=== PATIENT | male | born 1940 | race Caucasian/White ===

== ENCOUNTER → 2024-02-10 | Outpatient (CLI) | payer MEDICARE, BC, SELFPAY ==
[2024-02-10 11:10] LABS: Albumin, Serum 4.1 gm/dL (3.4-4.8); Anion Gap 7 (7-16); BUN/Creatinine Ratio 19 Ratio (12-20); Blood Urea Nitrogen 48 mg/dL (9-23); Calcium 9.9 mg/dL (8.3-10.6); Calcium (Corrected) 9.9 mg/dL (8.5-10.1); Carbon Dioxide 25.6 mMol/L (20.0-31.0); Chloride 107 mMol/L (98-107); Creatinine (Component) 2.5 mg/dL (0.6-1.3); Glucose 113 mg/dL (74-106); Osmolality,Calculated 293 (275-295); Phosphorous 3.5 mg/dL (2.4-5.1); Potassium 4.5 mMol/L (3.4-5.1); Sodium 140 mMol/L (136-145); eGFR 25 See Note
== END | disposition home or self-care (01) ==
LOC: COPL 10:01
PROVIDERS: PCP Internal Medicine; Referring Provider Otolaryngology Otolaryngology/Facial Plastic Surgery; Visit Provider Internal Medicine
DX: Z00.00 Encounter for general adult medical examination without abnormal findings (principal); I12.9 Hypertensive chronic kidney disease with stage 1 through stage 4 chronic kidney disease, or unspecified chronic kidney disease; N18.4 Chronic kidney disease, stage 4 (severe); H81.10 Benign paroxysmal vertigo, unspecified ear; Q61.9 Cystic kidney disease, unspecified
CPT/HCPCS: 36415; 80069

== ENCOUNTER → 2024-02-19 | Outpatient (CLI) | payer MEDICARE, BC, SELFPAY ==
--- NOTE | 2024-02-19 15:15 | XR_ITS ---
Examination: MRI brain without intravenous contrast. Date and time of exam: February 19, 2024 1359 hours INDICATIONS: Tendinitis, extreme vertigo months, diagnosis chronic serous otitis media left ear Technique: Multiple axial and sagittal images of the brain obtained. Siemens high-resolution 1.5 Haylie short bore scanners utilized. Sagittal sections, T1-weighted, TR 500, TE 14, are performed. Axial sections proton-density and T2-weighted have been obtained. Inversion recovery axial images, TR 9, 260, TE 111, TI 2500. Diffusion weighted images, axial sections, TR 4800, TE 128, B value 1000 Axial sections, ADC map, TR 4800, TE 128 Findings: Enlargement of the sella turcica is not present. The optic chiasm and infundibular are not remarkable. Prepontine and interpeduncular cisterns are not enlarged. There is no localized enlargement of the medulla or concha. Fourth ventricle and cerebellar tonsils appear normal in position. No subacute area of hemorrhage density is seen. Mass in the cerebellopontine angle region is not evident. Globes symmetrical. Orbital musculature including medial lateral rectus muscles do not exhibit abnormality. Diffusion-weighted images demonstrate no focus restricted diffusion. Increased white matter signal prominent Mass effect upon the ventricular system is not identified. Impression: Negative for acute hemorrhage mass effect or midline shift No acute infarct Prominent chronic microvascular white matter change. Mild left mastoiditis Chronic pansinusitis, severe right maxillary antrum
== END | disposition home or self-care (01) ==
LOC: SMRI 14:55
PROVIDERS: PCP Internal Medicine; Referring Provider Otolaryngology Facial Plastic Surgery; Visit Provider Otolaryngology Facial Plastic Surgery
DX: R90.82 White matter disease, unspecified (principal); H70.92 Unspecified mastoiditis, left ear; J32.4 Chronic pansinusitis
CPT/HCPCS: 70551

== ENCOUNTER 2024-04-08 12:38 | Inpatient (IN) | payer MEDICARE, BC, SELFPAY ==
[2024-04-08] VITALS (8 sets, daily range): BP systolic 144–169; BP diastolic 63–99; PULSE 73–84; RESP 16–969; TEMP 36.6–37.3; O2SAT 92–97; BMI 25.7
--- NOTE | 2024-04-08 13:23 | XR_ITS ---
Examination: Duplex scan of the lower extremity, unilateral left Date and time of exam: April 08, 2024 1336 hours INDICATIONS: Left leg swelling and pain 4 days Technique: Duplex scan of the extremity veins using B-mode/grayscale imaging and Doppler spectral analysis and color flow Attention is directed to internal echogenicity, compression and augmentation involving these veins, color flow assessment, spectral analysis Findings: Major deep venous structures in the extremity demonstrate normal course and caliber. There is no evidence of deep vein thrombosis. Normal color flow and spectral analysis Impression: Negative for DVT..
--- NOTE | 2024-04-08 13:23 | XR_ITS ---
Examination: AP 2 views Technique one AP lateral left knee 2 views Exam date and time: April 08, 2024 1439 hours INDICATIONS: Left knee swelling beginning today. FINDINGS: Moderate osteopenia Total left knee arthroplasty. Satisfactory alignment Moderate to large left knee effusion No fracture IMPRESSION: Moderate to large left knee effusion
--- NOTE | 2024-04-08 13:25 | EDNOTE_ITS ---
ED General RME/HPI General Chief complaint: General Adult/Misc Complain Stated complaint: r/o dvt left knee, sent by pcp,pain/swelling Time Seen by Provider: 04/08/24 12:56 Arrival date/time: 04/08/24 12:38 RME / HPI RME / HPI narrative: 83-year-old male patient was sent to us by PCP to rule out DVT to the left lower leg. Patient been having worsening swelling to the left knee, this time associated with pain and warm to touch. Patient denies any redness. Denies any fever denies any trauma. Patient has a history of total knee replacement several years ago. Patient called Dr. Esquivel, orthopedic surgeon, and was advised to go to the emergency room. Related Data Home Medications ?Medication ?Instructions ?Recorded ?Confirmed aspirin 81 mg chewable tablet 81 mg PO ONCE PM 8 08/11/17 metoprolol tartrate 25 mg tablet 25 mg PO BID 08/11/17 08/11/17 tamsulosin 0.4 mg capsule 0.4 mg PO DAILY 08/11/1705/26 Allergies Allergy/AdvReac Type Severity Reaction Status Date / Time No Known Allergies Allergy Verified 04/08/24 12:40 Review of Systems Review of Systems Narrative Review of Systems: Review of system reviewed and within normal limits except mentioned in HPI ED Exam Narrative Physical exam: VITAL SIGNS: Reviewed. GENERAL APPEARANCE: Alert and interactive, follows commands, no acute distress, HEAD AND FACE: Non-traumatic. ENT: PERRL, pink conjunctivitis, eyelid no trauma, Mucous membrane moist. NECK: Supple, nontender, no nuchal rigidity. CHEST: No tenderness, no crepitus, no paradoxical movement, no retractions. LUNGS: Clear, well ventilated, symmetric, no rales, no wheezing, no ronchi, no stridor, good breath sounds bilaterally. HEART: Regular rate, regular rhythm, no murmur, no gallops. ABDOMEN: Soft, positive bowel sounds, nondistended, no guarding, nontender, no rebound, no masses, RECTAL: Deferred. GENITAL: Deferred. NEUROLOGICAL: Gross motor function intact sensory function intact, Appropriate for age. MUSCULOSKELETAL: low back nontender, full range of motion. EXTREMITIES: Left knee tenderness, swelling, with positive fluid wave test, no redness limitation range of motion. SKIN: Color pink, dry, no rash, no lacerations, no abrasions, no contusions. LYMPHATICS: Deferred. Course Quality Measures none Orders Category Date Time Status COVID-19 Screening Questionnaire NOW Care 04/08/24 16:45 Active Decision to Admit X1 Care 04/08/24 16:45 Active Consult to Orthopedic Stat Cons 04/08/24 16:43 Ordered US venous doppler LE LT Stat Exams 04/08/24 13:23 Completed XR knee limited LT 2V Stat Exams 04/08/24 13:23 Completed Blood Culture (Lab) Stat Lab 04/08/24 16:49 Ordered CBC Stat Lab 04/08/24 14:49 Completed CRP [C-Reactive Protein] Stat Lab 04/08/24 14:49 Completed Comprehensive Metabolic Panel Stat Lab 04/08/24 14:49 Completed ESR [Sed Rate (ESR)] Stat Lab 04/08/24 14:49 Completed Lactate (Lactic Acid) Stat Lab 04/08/24 14:49 Completed Procalcitonin Stat Lab 04/08/24 16:49 Ordered Prothrombin Time with INR Stat Lab 04/08/24 14:49 Completed HYDROcodone*/APAP 5/325 [[place] 5/325] Med 04/08/24 13:24 Discontinued 1 tab PO X1 ONE Piper/Tazo 3.375 gm [Zosyn] Med 04/08/24 16:43 Active 3.375 gm in 50 ml IV X1 Vancomycin Inj 1,000 mg Med 04/08/24 16:43 Active Sodium Chloride 0.9% 250 ml [Ns] 250 ml IV X1 Vital Signs Vital signs: Vital Signs Temperature 98.5 F 04/08/24 13:13 Pulse Rate 82 04/08/24 13:13 Respiratory Rate 20 04/08/24 13:13 Blood Pressure 144/87 H 04/08/24 13:13 Pulse Oximetry (%) 95 04/08/24 13:13 Oxygen Delivery Method Room Air 04/08/24 13:13 [facility] Patient data External records reviewed:: None Clinical information provided by:: patient Social determinants that could affect healthcare access:: none Patient has the following chronic illnesses:: Hypertension How is presenting disease/condition affected by chronic disease/condition?: c aused by Evaluation data The following diagnostics were reviewed and interpreted by me:: lab results and radiology exam(s) Lab and/or radiology exams considered but not ordered:: None Interpretation Summary: Laboratory workup significant for leukocytosis, elevated ESR, elevated creatinine, elevated CRP x-ray of the knee showed moderate knee effusion, ultrasound negative for DVT Medications Medications considered but not ordered:: None Medication administrations:: Medication Administration History Vancomycin HCl 1,000 mg/ (Sodium Chloride) 250 mls @ 150 mls/hr IV X1 ONE Stop: 04/08/24 18:22 Piperacillin/Tazobactam/Dextrose (Zosyn) 3.375 gm in 50 mls @ 100 mls/hr IV X1 ONE Stop: 04/08/24 17:12 Discontinued Medications Hydrocodone Bitart/Acetaminophen (Hydrocodone/Apap 5/325 Tablet) 1 tab PO X1 ONE Stop: 04/08/24 13:25 Last Admin: 04/08/24 14:17 Dose: 1 tab Documented By: Vancomycin and IV Zosyn and [place] Consultations Consultation(s) initiated? (list below): Yes Consultation #1 (Physician, Specialty, Details): Spoke with Dr. Hawthorne, orthopedic surgeon on-call, who told me to asked the hospitalist to admit the patient Diagnosis Differential Diagnosis ED Complaint MDM: Knee arthritis, septic knee, knee pain Most likely diagnosis given after review of the tests above:: Septic knee left Admission Indicated Admission indicated?: indicated Explain why admission is indicated or not indicated:: Needs to be admitted for further management Admission Request Was there a request for admission?: Yes Admission Attestation Admission request attestation: Discussed case with [Dr Sloan] from Hospitalist service regarding admission. Discussed patients ED course, exam findings, labs, and radiology results. The Hospitalist [agrees] to accept the patient for admission. Disposition Plan Disposition Plan: Admit Medical Decision Making MDM Narrative MDM Narrative: 83-year-old male patient was sent to us by PCP to rule out DVT to the left lower leg. Patient been having worsening swelling to the left knee, this time associated with pain and warm to touch. Patient denies any redness. Denies any fever denies any trauma. Patient has a history of total knee replacement several years ago. Patient called Dr. Esquivel, orthopedic surgeon, and was advised to go to the emergency room. Laboratory workup significant for leukocytosis, elevated CRP and ESR. X-ray of the knee showed large/moderate knee effusion. Ultrasound negative for DVT. Patient was started on IV vancomycin and IV Zosyn. Spoke with Dr. Hawthorne, orthopedic surgeon on-call, told me to admit the patient under hospitalist and will see the patient Differential Diagnosis Differential Diagnosis: Knee arthritis, septic knee, knee pain Lab Data 04/08/24 14:49 04/08/24 14:49 Labs: Lab Results 04/08/24 Range/Units 14:49 WBC 14.2 H (3.8-10.6) Thou/mm3 RBC 4.11 L (4.50-5.90) Miln/mm3 Hgb 12.1 L (13.5-16.0) g/dL Hct 36.6 L (41.0-53.0) % MCV 89 (80-100) fL MCH 29.4 (25.0-35.0) pg MCHC 33.1 (31.0-37.0) g/dl RDW Std Deviation 41.8 (35.1-43.9) fL Plt Count 287 (140-440) Thou/mm3 Neut % (Auto) 78 (37-80) % Lymph % (Auto) 9 L (10-50) % [place] % (Auto) 12 (0-12) % Eos % (Auto) 1 (0-10) % Baso % (Auto) 0 (0-2.5) % Neut # (Auto) 11.0 H (1.8-7.7) Thou/mm3 Lymph # (Auto) 1.3 (1.0-4.8) Thou/mm3 [place] # (Auto) 1.8 H (0.0-0.8) Thou/mm3 Eos # (Auto) 0.1 (0.0-0.5) Thou/mm3 Baso # (Auto) 0.0 (0.0-0.2) Thou/mm3 Immature Gran # (Auto) 0.05 H (0.00-0.00) Thou/mm3 Absolute Nucleated RBC 0.00 (0.00-0.00) Thou/mm3 Immature Gran % 0 (0-0) % Nucleated RBC % 0 (0) /100 WBC ESR 82 H (0-20) mm/hr PT 11.7 (9.0-12.2) Seconds INR 1.1 (0.9-1.3) Sodium 133 L (136-145) mMol/L Potassium 4.4 (3.4-5.1) mMol/L Chloride 100 (98-107) mMol/L Carbon Dioxide 23.2 (20.0-31.0) mMol/L Anion Gap 10 (7-16) BUN 45 H (9-23) mg/dL Creatinine 2.5 H (0.6-1.3) mg/dL Estim Creat Clear Calc 23.7 L (>60) mL/min eGFR 25 L (60 - ) See Note BUN/Creatinine Ratio 18 (12-20) Ratio Glucose 111 H (74-106) mg/dL Calculated Osmolality 278 (275-295) Lactic Acid 1.5 (0.4-2.0) mMol/L Calcium 9.5 (8.3-10.6) mg/dL Corrected Calcium 9.5 (8.5-10.1) mg/dL Total Bilirubin 0.6 (0.3-1.2) mg/dL AST 12 (0-34) U/L ALT 10 (10-49) U/L Alkaline Phosphatase 80 (46-116) U/L C-Reactive Prot, Quant 23.4 H (0.0-0.9) mg/dL Total Protein 7.1 (5.7-8.2) gm/dL Albumin 4.5 (3.4-4.8) gm/dL Globulin 2.6 (2.3-3.5) gm/dL Albumin/Globulin Ratio 1.7 (1.2-2.2) Discharge Plan Plan Patient Disposition: Admit Acute Care w/in Hospital Disposition Comment: Stable Prescriptions/Referrals Prescriptions/Med Rec: No Action metoprolol tartrate 25 mg Tablet 25 mg PO BID tamsulosin 0.4 mg Capsule,Extended Release 24hr 0.4 mg PO DAILY aspirin 81 mg Tablet,Chewable 81 mg PO ONCE PM Referrals: Chad Esquivel MD [Primary Care Provider] - In 1 week Problem List Clinical Impression: Septic joint of left knee joint Patient/Caregiver Discharge Instructions Print Language: Citizen Of [place] Stand Alone Forms: Nancy Award Info., Patient Portal Info Letter
[2024-04-08] MEDS: HYDROcodone/APAP 5/325 TABLET 1 TAB PO (14:17)
[2024-04-08 15:08] LABS: Lactate (Lactic Acid) 1.5 mMol/L (0.4-2.0)
[2024-04-08 15:10] LABS: Basophils % (Auto) 0 % (0-2.5); Eosinophils # (Auto) 0.1 Thou/mm3 (0.0-0.5); Eosinophils % (Auto) 1 % (0-10); Hematocrit 36.6 % (41.0-53.0); Hemoglobin 12.1 g/dL (13.5-16.0); Immature Granulocytes % (Auto) 0 % (0-0); Immature Granulocytes Auto 0.05 Thou/mm3 (0.00-0.00); Lymphocytes # (Auto) 1.3 Thou/mm3 (1.0-4.8); Lymphocytes % (Auto) 9 % (10-50); Mean Corpuscular HGB Conc 33.1 g/dl (31.0-37.0); Mean Corpuscular Hemoglobin 29.4 pg (25.0-35.0); Mean Corpuscular Volume 89 fL (80-100); Monocytes # (Auto) 1.8 Thou/mm3 (0.0-0.8); Monocytes % (Auto) 12 % (0-12); Neutrophils % (Auto) 78 % (37-80); Nucleated Red Blood Cell % 0 /100 WBC (0); Platelet Count 287 Thou/mm3 (140-440); RDW Standard Deviation 41.8 fL (35.1-43.9); Red Blood Count 4.11 Miln/mm3 (4.50-5.90); White Blood Count 14.2 Thou/mm3 (3.8-10.6)
[2024-04-08 15:30] LABS: Alanine Aminotransferase 10 U/L (10-49); Albumin, Serum 4.5 gm/dL (3.4-4.8); Albumin/Globulin Ratio 1.7 (1.2-2.2); Alkaline Phosphatase 80 U/L (46-116); Anion Gap 10 (7-16); Aspartate Amino Transferase 12 U/L (0-34); BUN/Creatinine Ratio 18 Ratio (12-20); Bilirubin,Total 0.6 mg/dL (0.3-1.2); Blood Urea Nitrogen 45 mg/dL (9-23); C-Reactive Protein 23.4 mg/dL (0.0-0.9); Calcium 9.5 mg/dL (8.3-10.6); Calcium (Corrected) 9.5 mg/dL (8.5-10.1); Carbon Dioxide 23.2 mMol/L (20.0-31.0); Chloride 100 mMol/L (98-107); Creatinine (Component) 2.5 mg/dL (0.6-1.3); Estimated Creatinine Clearance 23.7 mL/min (>60); Globulin 2.6 gm/dL (2.3-3.5); Glucose 111 mg/dL (74-106); INR 1.1 (0.9-1.3); Osmolality,Calculated 278 (275-295); Potassium 4.4 mMol/L (3.4-5.1); Prothrombin Time 11.7 Seconds (9.0-12.2); Sed Rate (ESR) 82 mm/hr (0-20); Sodium 133 mMol/L (136-145); Total Protein 7.1 gm/dL (5.7-8.2); eGFR 25 See Note
--- NOTE | 2024-04-08 17:44 | ESHP_ITS ---
<Statement entered by Dick Patino MD - 04/08/24 18:05> This patient is a 83-year-old male with past medical history of bilateral total knee replacement came with left knee pain swelling and fevers. Patient is admitted for septic arthritis. Patient also has history of A-fib on Eliquis preventive dose. Orthopedics, Dr. Wall was consulted who recommended to do IR guided joint aspiration tomorrow and he will follow-up with fluid analysis. We empirically started with IV Rocephin and doxycycline will wait on culture results. Pain management as needed. Home medications were reconciled. All labs and orders were reviewed. I saw and examined the patient, and I agree with current management stated by Dr Francisco MD,PGY1. Plan of care was discussed with the attending physician and resident physician. Disclaimer: Despite multiple revisions, due to the dictation software being used, the document bellow may not be free of grammatical errors including phonetic/typographic errors. However, this does not deter from our commitment to providing health care in the patient's best interest in mind. Dr. Sukumar MD, PGY 2 Documentation for date of: 04/08/24 HPI History of Present Illness Chief complaint: Left knee swelling x 4 to 5 days History of present illness: Patient is a 83-year-old male presenting with a complaint of left knee swelling for the last 4 to 5 days and associated whole body aches. History of A-fib on Eliquis, hypertension, bilateral knee replacement (left knee 2017, right knee 2019). Denies any recent trauma. Has come in due to new onset left knee swelling with associated tenderness. Denies fevers, chills, nausea, vomiting. He has been having associated whole body shakes last less than 10 seconds since the onset of his left knee swelling. attributes it to anxiety and notes that she is able to calm him by having him take deep breaths when this occurs. He is lucid throughout the entire interval and is able to converse. Patient denies anxiety during these episodes. They are usually resolved with verbal reassurance. In the ED CBC with a leukocytosis of 14, elevated ESR of 82, CRP of 23 and Pro- Oh of 1.15. BUN 45 and creatinine 2.5 which is unchanged from previous. Negative DVT studies. X-ray shows moderate to large left effusion. Given a dose of [place] for History: A-fib, hypertension, bilateral total knee replacement, BPH, left ear deafness with cochlear implant Meds: Eliquis 2.5 twice daily, losartan 50 daily, nitroglycerin 0.4 as needed, tamsulosin 0.4 daily, MiraLAX daily, senna as needed Allergies: None Surgeries: Bilateral knee replacement. Left knee 2017. Right knee 2019., Appendectomy. Social: Denies alcohol or tobacco use CODE STATUS: DNR/DNI Review of Systems Constitutional Constitutional: Reports as per HPI Exam Vital Signs Temp Pulse Resp BP Pulse Ox O2 Del Method 98.6 F 77 18 167/87 H 97 Room Air 04/08/24 16:44 04/08/24 16:44 04/08/24 16:44 04/08/24 16:44 04/08/24 16:44 04/08/24 16:44 Narrative Exam Constitutional: Well nourished and in no acute distress Eyes: no conjunctival injection , symmetrical lids. ENMT: Moist Mucous Membranes CVS: RRR, S1 and S2 present, no murmurs, rubs or gallops . RESP: no increased work of breathing, on room air MSK: Left knee with effusion, warm and tender to palpation, no erythema. Decreased range of motion of left knee secondary to pain. Skin: Warm to touch, Dry. No rashes or lesions. Neuro: A&O x 3, 5/5 strength and sensation throughout Psych: Appropriate mood and affect. Results: Labs 04/09/24 05:05 04/09/24 05:05 Labs: Short CBC 04/08/24 Range/Units 14:49 WBC 14.2 H (3.8-10.6) Thou/mm3 Hgb 12.1 L (13.5-16.0) g/dL Hct 36.6 L (41.0-53.0) % Plt Count 287 (140-440) Thou/mm3 BMP 04/08/24 14:49 Sodium 133 L Potassium 4.4 Chloride 100 Carbon Dioxide 23.2 BUN 45 H Creatinine 2.5 H Glucose 111 H Calcium 9.5 Liver Function 04/08/24 Range/Units 14:49 Total Bilirubin 0.6 (0.3-1.2) mg/dL AST 12 (0-34) U/L ALT 10 (10-49) U/L Alkaline Phosphatase 80 (46-116) U/L Albumin 4.5 (3.4-4.8) gm/dL Quality Measures Quality Measures none Advance care planning discussed with:: other Medications Home Medications and Allergies Home Medications ?Medication ?Instructions ?Recorded ?Confirmed ?Type aspirin 81 mg chewable tablet 81 mg PO ONCE PM 8 08/11/17 History metoprolol tartrate 25 mg tablet 25 mg PO BID 08/11/17 08/11/17 History tamsulosin 0.4 mg capsule 0.4 mg PO DAILY 08/11/1705/26 History Allergies Allergy/AdvReac Type Severity Reaction Status Date / Time No Known Allergies Allergy Verified 04/08/24 12:40 Visit Medications Acetaminophen (Acetaminophen 325 Mg Tablet) 650 mg PO Q6H PRN PRN Reason: PAIN SCALE 1-3 (mild Stop: 05/08/24 17:12 Heparin Sodium (Porcine) (Heparin Sod Inj 5000 Unit/Ml Vial) 5,000 unit SC Q12HR JOSÉ Stop: 04/22/24 20:59 Vancomycin HCl 1,000 mg/ (Sodium Chloride) 250 mls @ 150 mls/hr IV X1 ONE Stop: 04/08/24 18:22 Lactated Ringer's (Lactated Ringers) 1,000 mls @ 75 mls/hr IV .[id number] JOSÉ Stop: 05/08/24 17:14 Doxycycline Hyclate 100 mg/ (Sodium Chloride) 100 mls @ 100 mls/hr IV BID JOSÉ Stop: 04/15/24 20:59 Ceftriaxone Sodium/Dextrose (Rocephin/D5w 2gm) 2 gm in 50 mls @ 100 mls/hr IV QDAY JOSÉ Stop: 04/16/24 08:59 Tramadol HCl (Tramadol Hcl 50 Mg Tablet) 50 mg PO Q6HR PRN PRN Reason: PAIN SCALE 4-6 (Moderate Stop: 04/13/24 17:12 Discontinued Medications Hydrocodone Bitart/Acetaminophen (Hydrocodone/Apap 5/325 Tablet) 1 tab PO X1 ONE Stop: 04/08/24 13:25 Last Admin: 04/08/24 14:17 Dose: 1 tab Piperacillin/Tazobactam/Dextrose (Zosyn) 3.375 gm in 50 mls @ 100 mls/hr IV X1 ONE Stop: 04/08/24 17:12 Assessment & Plan Plan Patient is a 83-year-old male presenting with a complaint of left knee swelling for the last 4 to 5 days and associated whole body aches. History of A-fib on Eliquis, hypertension, bilateral knee replacement (left knee 2016, right knee 2019). Denies any recent trauma. #Left knee effusion DDx: Septic arthritis, gout, joint effusion X-ray of the knee shows mild to moderate effusion CBC with a leukocytosis of 14, elevated ESR of 82, CRP of 23 and Pro-Oh of 1.15. On exam patient has swelling and tenderness to palpation. No erythema, not hot to touch. Plan: ?Doxycycline and ceftriaxone for antimicrobial coverage ?IR arthrocentesis on 04/09 ?Ortho consulted, Dr. Wall. If septic arthritis will plan for surgery on 04/10. ?Tylenol and tramadol as needed for pain #A-fib History of A-fib on Eliquis Plan: ?Resume home Eliquis 2.5 twice daily, will hold for IR arthrocentesis and possible surgery #Hypertension ?Resume home losartan 50 mg daily #Constipation ?Resume MiraLAX daily ? Senna as needed #BPH ?Resume home tamsulosin 0.4 mg daily #CKD stage III DDx possible polycystic kidney disease CODE STATUS: DNR/DNI GI prophylaxis: Pantoprazole DVT prophylaxis: Eliquis Diet: Low-sodium diet Patient care was overseen with my attending Dr. London, Tony Singh DO, PGY1 Attending Provider Attestation/Addendum I attest that I was physically present for the evaluation, physical examination, lab and imaging review of the patient with the residents. I discussed the case with the residents and agree with the findings and plans of care as documented above. Patient is a 83 years old male with past medical history of bilateral total knee replacement, A-fib on Eliquis, hypertension who presented to the ED with complaint of left knee swelling. On examination in the ED, patient has swelling on his left knee, warm to touch and tender to palpate but does not have any redness. X-ray of the knee was significant for mild to moderate effusion. Patient has a WBC count of 14, ESR 82, CRP 23 and procalcitonin of 1.15. We will admit the patient for management of left knee effusion with suspicion for septic arthritis. We will start him on doxycycline and Rocephin IV. We will obtain IR thoracentesis. Orthopedics on board, planning for surgery on 131 if patient found to be having septic arthritis. Pain management as needed. We will hold his home Eliquis for thoracentesis and possible surgery. Emanuel London MD
[2024-04-08 17:48] LABS: Procalcitonin 1.15 ng/ml (0.0-0.49)
[2024-04-08 18:49] LABS: Uric Acid 7.8 mg/dL (3.7-9.2)
[2024-04-08] MEDS: PIPER/TAZO 3.375 GM 3.375 GM/50 ML BAG IV (19:00)
[2024-04-08] MEDS: RINGERS LACTATED 1000 ML 1,000 ML 75 ML IV (19:05)
[2024-04-08] MEDS: APIXABAN 2.5 MG TABLET PO (19:23)
[2024-04-08] MEDS: Vancomycin Inj 1,000 MG in SODIUM CHLORIDE 0.9% 250 ML 250 ML 150 MG IV (20:15)
[2024-04-08] MEDS: DOXYCYCLINE INJ 100 MG in SODIUM CHLORIDE 0.9% (P) 100 ML IV (22:09)
[2024-04-09] VITALS (11 sets, daily range): BP systolic 138–156; BP diastolic 72–85; PULSE 70–95; RESP 13–94; TEMP 36.4–37; O2SAT 94; BMI 27.1
--- NOTE | 2024-04-09 03:00 | PC.NURSE ---
attempted to do med rec, patient unable to recall home medications and states can bring in a list when she comes tomorrow morning.
[2024-04-09] MEDS: traMADol HCL 50 MG TABLET PO (03:47)
[2024-04-09 05:54] LABS: Basophils # (Auto) 0.1 Thou/mm3 (0.0-0.2); Basophils % (Auto) 1 % (0-2.5); Eosinophils # (Auto) 0.1 Thou/mm3 (0.0-0.5); Eosinophils % (Auto) 1 % (0-10); Hematocrit 32.8 % (41.0-53.0); Hemoglobin 10.8 g/dL (13.5-16.0); Immature Granulocytes % (Auto) 1 % (0-0); Immature Granulocytes Auto 0.05 Thou/mm3 (0.00-0.00); Lymphocytes # (Auto) 1.1 Thou/mm3 (1.0-4.8); Lymphocytes % (Auto) 11 % (10-50); Mean Corpuscular HGB Conc 32.9 g/dl (31.0-37.0); Mean Corpuscular Hemoglobin 29.7 pg (25.0-35.0); Mean Corpuscular Volume 90 fL (80-100); Monocytes # (Auto) 1.2 Thou/mm3 (0.0-0.8); Monocytes % (Auto) 12 % (0-12); Neutrophils # (Auto) 8.1 Thou/mm3 (1.8-7.7); Neutrophils % (Auto) 76 % (37-80); Nucleated Red Blood Cell % 0 /100 WBC (0); Platelet Count 268 Thou/mm3 (140-440); RDW Standard Deviation 42.5 fL (35.1-43.9); Red Blood Count 3.64 Miln/mm3 (4.50-5.90); White Blood Count 10.6 Thou/mm3 (3.8-10.6)
[2024-04-09 06:04] LABS: INR 1.1 (0.9-1.3); Partial Thromboplastin Time 34.3 Seconds (22.0-36.0); Prothrombin Time 11.6 Seconds (9.0-12.2)
[2024-04-09] MEDS: POLYETHYLENE GLYCOL 17 GM PACKET PO (06:27)
[2024-04-09 06:53] LABS: Alanine Aminotransferase < 7 U/L (10-49); Albumin, Serum 3.6 gm/dL (3.4-4.8); Albumin/Globulin Ratio 1.4 (1.2-2.2); Alkaline Phosphatase 69 U/L (46-116); Anion Gap 11 (7-16); Aspartate Amino Transferase < 10 U/L (0-34); BUN/Creatinine Ratio 18 Ratio (12-20); Bilirubin,Total 0.6 mg/dL (0.3-1.2); Blood Urea Nitrogen 41 mg/dL (9-23); Calcium 8.9 mg/dL (8.3-10.6); Calcium (Corrected) 9.2 mg/dL (8.5-10.1); Carbon Dioxide 22.3 mMol/L (20.0-31.0); Chloride 101 mMol/L (98-107); Creatinine (Component) 2.3 mg/dL (0.6-1.3); Estimated Creatinine Clearance 25.8 mL/min (>60); Globulin 2.5 gm/dL (2.3-3.5); Glucose 110 mg/dL (74-106); Magnesium 1.8 mg/dL (1.6-2.6); Osmolality,Calculated 279 (275-295); Phosphorous 3.2 mg/dL (2.4-5.1); Potassium 4.1 mMol/L (3.4-5.1); Sodium 134 mMol/L (136-145); Total Protein 6.1 gm/dL (5.7-8.2); eGFR 27 See Note
[2024-04-09] MEDS: DOXYCYCLINE INJ 100 MG in SODIUM CHLORIDE 0.9% (P) 100 ML IV ×2 (08:51→20:15)
[2024-04-09] MEDS: PANTOPRAZOLE INJ 40 MG VIAL IVP (08:52)
[2024-04-09] MEDS: TAMSULOSIN HCL 0.4 MG CAPSULE PO (08:52)
[2024-04-09] MEDS: LOSARTAN POTASSIUM 25 MG TABLET 50 MG PO (08:52)
[2024-04-09] MEDS: RINGERS LACTATED 1000 ML 1,000 ML 75 ML IV (09:00)
--- NOTE | 2024-04-09 09:47 | PC.SS ---
Initial assessment: patient is an 83 year old male admitted for septic artritis. Spoke with patient's , Marybeth who provided the following information. Patient lives at home with spouse, confirmed home address. Patient's spouse assigned as alternate medical decision maker. Patient described to be independent with ADL's. No home DME used. PCP Dr. Segundo Lainez. Patient also follows Dr. Owens. Patient is to return home upon discharge. Family able to transport the patient. No needs identified at this time. D/c plan: Home Next of kin: Marybeth Hernandez
--- NOTE | 2024-04-09 09:55 | PC.SS ---
SS update: pending cultures.
[2024-04-09] MEDS: cefTRIAXone/D5w 2gm 2 GM/50 ML BAG IV (10:27)
--- NOTE | 2024-04-09 12:35 | XR_ITS ---
Examination: Fluoroscopically guided left knee joint aspiration with imaging guidance Fluoroscopy AP left knee single view. Exam date and time: April 09, 2024 1219 hours INDICATIONS: Left knee swelling redness and pain this week Informed consent provided. Technique: A timeout was completed verifying correct patient, procedure, site, positioning. The patient was placed in supine position appropriate for the steroid injection The patient's site was prepped and draped in sterile fashion 5 cc 1% lidocaine administered locally for anesthesia. Sterile drape applied, maximum barrier sterile technique. Utilizing fluoroscopic guidance, 18-gauge needle placed in the left knee joint 5 cc turbid fluid removed and sent for culture and sensitivity The patient was in satisfactory and stable condition on completion of the procedure Attending radiologist was present for the entire procedure Estimated blood loss 0 cc. Impression: Successful fluoroscopically guided left knee joint aspiration with imaging guidance Fluoroscopy 0.1 minute 1 spot fluoroscopic AP knee film .
--- NOTE | 2024-04-09 14:30 | ECHO_ITS ---
Transthoracic Echo Report Ht (in): 72 Wt (lb): 200 Exam Location: Echo Lab Status: Inpatient Quality Assurance/R&D Lab Technician: Flores Pool Indications: Procedure Performed: BP: 144 / 87 HR: 82 Technical Quality: Technically difficult study MEASUREMENTS (Male / Female) Normal Values 2D ECHO LV Diastolic Diameter PLAX 5.9 cm 4.2 - 5.9 / 3.9 - 5.3 cm LV Systolic Diameter PLAX 3.6 cm IVS Diastolic Thickness 1.0 cm 0.6 - 1.0 / 0.6 - 0.9 cm LVPW Diastolic Thickness 1.1 cm 0.6 - 1.0 / 0.6 - 0.9 cm LV Relative Wall Thickness 0.4 LVOT Diameter 1.9 cm LA Volume Index 28.2 cm?/m? 16 - 28 cm?/m? M-MODE Aortic Root Diameter MM 2.9 cm AV Cusp Separation MM 1.6 cm DOPPLER AV Peak Velocity 137.5 cm/s AV Peak Gradient 7.6 mmHg AV Mean Gradient 4.5 mmHg AV Velocity Time Integral 29.7 cm LVOT Peak Velocity 132.0 cm/s LVOT Peak Gradient 7.0 mmHg LVOT Velocity Time Integral 27.4 cm LVOT Cardiac Index 2948.6 cm?/min?m? AV Area Cont Eq vti 2.6 cm? AV Area Cont Eq pk 2.7 cm? MV Area PHT 3.7 cm? MR Peak Velocity 285.0 cm/s MR Peak Gradient 32.5 mmHg Mitral E Point Velocity 62.6 cm/s Mitral A Point Velocity 103.0 cm/s Mitral E to A Ratio 0.6 LV E' Lateral Velocity 8.4 cm/s Mitral E to LV E' Lateral Ratio 7.5 LV E' Septal Velocity 6.4 cm/s Mitral E to LV E' Septal Ratio 9.8 TR Peak Velocity 238.0 cm/s TR Peak Gradient 22.7 mmHg PV Peak Velocity 84.2 cm/s PV Peak Gradient 2.8 mmHg FINDINGS Left Ventricle Normal left ventricular size and systolic function with no obvious regional wall motion abnormalities. Mild LVH. Normal left ventricular diastolic filling pattern for age. The ejection fraction is visually estimated at 55-60 %. Right Ventricle The right ventricle is normal in size and systolic function. Left Atrium The left atrium is normal by two-dimensional, color flow and Doppler imaging with no structural abnormalities, no thrombus formation present. Right Atrium The right atrium is normal by two-dimensional imaging, color flow and Doppler imaging with no structural abnormalities, no thrombus formation present. Atrial Septum The interatrial septum appears normal with no evidence of a shunt. Aorta The aorta is normal by two-dimensional, color flow and Doppler interrogation. Mitral Valve The mitral valve is normal by two-dimensional, color flow and Doppler interrogation. There is trace mitral valve regurgitation, stenosis or prolapse. Aortic Valve The aortic valve is trileaflet and normal by two-dimensional, color flow and Doppler interrogation. There is no significant aortic valve regurgitation. Tricuspid Valve The tricuspid valve is normal by two-dimensional, color flow and Doppler interrogation. There is mild tricuspid valve regurgitation. Pulmonic Valve The pulmonic valve is not well visualized. There is no significant pulmonic valve regurgitation. Vessels Inferior vena cava not well visualized. Pericardium The pericardium is normal by two-dimensional imaging. There is no significant pericardial effusion. CONCLUSIONS Indication: cardiac workup Normal left ventricular size. Mild LVH. Estimated EF 55-60 %. RV is normal in size and systolic function. Mild mitral and trace tricuspid regurgitation Ashtyn Hair (Electronically Signed) Final Date: 11 April 2024 00:19
--- NOTE | 2024-04-09 14:51 | ESCONSULT_ITS ---
<Statement entered by Sisi Singh MD - 04/12/24 14:19> I personally examined evaluated the patient appears to be stable we will do a cardiac echo but Emigdio cleared the patient for orthopedic surgery for removal of the fluid septic arthritis and drainage evaluated the patient along with resident physician Dr. Whitfield agree with the treatment plan recommendation as documented HPI Data of Consult Requesting Physician: Emanuel London MD Admitting Provider: Emanuel London MD Attending Provider: Emanuel London MD Primary Care Provider: Chad Esquivel MD Consult Narrative Reason for consult: cardiac clearance History of present illness: Mr. Hernandez is a 83-year-old male with past medical history significant for A-fib on Eliquis, hypertension, bilateral knee replacement, diverticulitis, BPH, left ear deafness with cochlear implant who presented to the ED with left knee swelling and bodyaches for the last week. Associated symptoms include body shaking lasting about 10 seconds which is alleviated after taking deep breaths. 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 Patient denies any recent trauma, chest pain, fevers, chills, nausea/vomiting. Patient's bonsai culturist is Dr. Anders. Patient denies having any MIs or TIAs/strokes in the past. In the ED, patient's labs were significant for leukocytosis, elevated ESR, CRP, and Pro-Oh. Imaging was negative for any DVT however, x-ray showed moderate to large left effusion. IR arthrocentesis of the left knee joint today showed turbid fluid suggesting septic arthritis. Orthopedist will take patient to the OR tomorrow. Cardiology was consulted for cardiac clearance for septic arthritis in the left lower extremity. Past medical history: As mentioned above Past surgical history: As mentioned above including appendectomy Meds: Patient takes Eliquis 2.5 mg twice daily since 2017, losartan 50 mg daily, nitroglycerin 0.4 sublingual as needed, tamsulosin 0.4 mg daily, MiraLAX daily, senna as needed. Social history: Patient denies any alcohol, smoking, illicit drug use. Allergies: NKDA Family history: Noncontributory cc:: cc: Emanuel London MD Review of Systems Review of Systems Systems Reviewed: All systems reviewed, normal except as documented Exam Vital Signs Temp Pulse Resp BP Pulse Ox O2 Del Method 97.5 F 70 18 151/72 H 94 L Room Air 04/09/24 12:00 04/09/24 12:00 04/09/24 12:00 04/09/24 12:00 04/09/24 12:04/09/24 12:00 Narrative Exam General Appearance: Pt in mild acute distress laying in bed. Well-nourished, cooperative to answering questions. HEENT: NC/AT, no scleral icterus, no conjunctival pallor, MMM Lungs: CTAB, no wheezes or crackles appreciated CVS: RRR, S1/S2 heard, no murmurs or rubs appreciated ABD: Soft, non-tender, non-distended, BS + in all 4 quadrants EXT: Left knee tender, warm to touch, swollen with no erythema noted compared to RLE. SKIN: Skin exam normal without any rashes. Neuro: A&O x 3. No gross neurological deficits. Motor and sensory grossly intact in B/L UL and LL except for decreased range of motion in left knee limited to pain. Psych: Appropriate mood and affect Results Labs 04/09/24 05:05 04/09/24 05:05 Labs: Short CBC 04/08/24 04/09/24 Range/Units 14:49 05:05 WBC 14.2 H 10.6 (3.8-10.6) Thou/mm3 Hgb 12.1 L 10.8 L (13.5-16.0) g/dL Hct 36.6 L 32.8 L (41.0-53.0) % Plt Count 287 268 (140-440) Thou/mm3 [facility] 04/08/24 04/09/24 14:49 05:05 Sodium 133 L 134 L Potassium 4.4 4.1 Chloride 100 101 Carbon Dioxide 23.2 22.3 BUN 45 H 41 H Creatinine 2.5 H 2.3 H Glucose 111 H 110 H Calcium 9.5 8.9 Liver Function 04/08/24 04/09/24 Range/Units 14:49 05:05 Total Bilirubin 0.6 0.6 (0.3-1.2) mg/dL AST 12 < 10 (0-34) U/L ALT 10 < 7 L (10-49) U/L Alkaline Phosphatase 80 69 (46-116) U/L Albumin 4.5 3.6 D (3.4-4.8) gm/dL Quality Measures Quality Measures none Advance care planning discussed with:: patient Medications Home Medications and Allergies Home Medications ?Medication ?Instructions ?Recorded ?Confirmed ?Type tamsulosin 0.4 mg capsule 0.4 mg PO DAILY 08/11/1705/26 History Allergies Allergy/AdvReac Type Severity Reaction Status Date / Time No Known Allergies Allergy Verified 04/08/24 12:40 Visit Medications Acetaminophen (Acetaminophen 325 Mg Tablet) 650 mg PO Q6H PRN PRN Reason: PAIN SCALE 1-3 (mild Stop: 05/08/24 17:12 Dextrose (Dextrose 50%-Water Inj 50 Ml Syringe) 25 ml IV Q15MIN PRN PRN Reason: BG 50-70 responsive npo pt Stop: 05/08/24 18:09 Dextrose (Dextrose 50%-Water Inj 50 Ml Syringe) 50 ml IV Q15MIN PRN PRN Reason: BG <50 OR BG <70 & pt unresponsive Stop: 05/08/24 18:09 Glucagon (Glucagon Inj 1 Mg Vial) 1 mg IM Q15MIN PRN PRN Reason: BG <70, and no IV access Lactated Ringer's (Lactated Ringers) 1,000 mls @ 75 mls/hr IV .[id number] [facility] Stop: 05/08/24 17:14 Last Admin: 04/09/24 09:00 Dose: 75 mls/hr Doxycycline Hyclate 100 mg/ (Sodium Chloride) 100 mls @ 100 mls/hr IV BID [facility] Stop: 04/15/24 20:59 Last Admin: 04/09/24 08:51 Dose: 100 mls/hr Ceftriaxone Sodium/Dextrose (Rocephin/D5w 2gm) 2 gm in 50 mls @ 100 mls/hr IV QDAY [facility] Stop: 04/16/24 08:59 Last Admin: 04/09/24 10:27 Dose: 100 mls/hr Losartan Potassium (Losartan Potassium 25 Mg Tablet) 50 mg PO QDAY [facility] Stop: 05/09/24 08:59 Last Admin: 04/09/24 08:52 Dose: 50 mg Ondansetron HCl (Ondansetron Inj 2 Mg/Ml Inj 2 Ml) 4 mg IV Q6H PRN; Protocol PRN Reason: NAUSEA OR VOMITING Stop: 05/08/24 18:07 Pantoprazole Sodium (Pantoprazole Inj 40 Mg Vial) 40 mg IVP QDAY [facility] Stop: 05/09/24 08:59 Last Admin: 04/09/24 08:52 Dose: 40 mg Polyethylene Glycol (Polyethylene Glycol 17 Gm Packet) 17 gm PO QDAY [facility] Stop: 05/09/24 06:59 Last Admin: 04/09/24 08:57 Dose: Not Given Sennosides (Senna Tablet) 1 tab PO QDAY PRN; Protocol PRN Reason: constipation Stop: 05/08/24 18:07 Tamsulosin HCl (Tamsulosin Hcl 0.4 Mg Capsule) 0.4 mg PO QDAY [facility] Stop: 05/09/24 08:59 Last Admin: 04/09/24 08:52 Dose: 0.4 mg Tramadol HCl (Tramadol Hcl 50 Mg Tablet) 50 mg PO Q6HR PRN PRN Reason: PAIN SCALE 4-6 (Moderate Stop: 04/13/24 17:12 Last Admin: 04/09/24 03:47 Dose: 50 mg Discontinued Medications Hydrocodone Bitart/Acetaminophen (Hydrocodone/Apap 5/325 Tablet) 1 tab PO X1 ONE Stop: 04/08/24 13:25 Last Admin: 04/08/24 14:17 Dose: 1 tab Apixaban (Apixaban 2.5 Mg Tablet) 2.5 mg PO QDAY ONE Stop: 04/08/24 18:10 Last Admin: 04/08/24 19:23 Dose: 2.5 mg Heparin Sodium (Porcine) (Heparin Sod Inj 5000 Unit/Ml Vial) 5,000 unit SC Q12HR [facility] Stop: 04/22/24 20:59 Vancomycin HCl 1,000 mg/ (Sodium Chloride) 250 mls @ 150 mls/hr IV X1 ONE Stop: 04/08/24 18:22 Last Admin: 04/08/24 20:15 Dose: 150 mls/hr Piperacillin/Tazobactam/Dextrose (Zosyn) 3.375 gm in 50 mls @ 100 mls/hr IV X1 ONE Stop: 04/08/24 17:12 Last Infusion: 04/08/24 20:17 Dose: Infused Assessment & Plan Plan Mr. Hernandez is a 83-year-old male with past medical history significant for A-fib on Eliquis, hypertension, bilateral knee replacement, BPH, left ear deafness with cochlear implant who presented to the ED with left knee swelling and bodyaches for the last week and admitted for further workup for left knee septic arthritis. Cardiology was consulted for cardiac clearance. #Pre-op cardiovascular examination, low-intermediate risk surgery/I&D #Hx of A-fib #Hx of HTN Patient has a high suspicion for left knee septic arthritis d/t nature of pain, leukocytosis, and turbid fluid from IR arthrocentesis. Pt's orthopedic surgery falls under the low-intermediate risk category, and suggests a 6% risk of adverse cardiac events. Patient's Revised Cardiac Risk Index (RCRI) is 1. All components have been reviewed. Pt hasn't had any cardiac risk factors except for hypertension and has never had any ACS symptoms or recent AL or Heart Failure. Based on patient's clinical exam, history, and imaging, patient has a low cardiac risk, and is cleared for surgery/I&D. Echo is ordered and pending. Patient most likely will have an I&D to clear any fluid left around joint, however will most likely require a joint replacement after infection is treated with full course of antibiotics. -Continue to control patient's pain -DVT prophylaxis currently held, resume Eliquis as per orthopedist recs -Continue with home Losartan 50mg QD -Echo ordered and pending -NPO at midnight for surgery #Left knee effusion #Septic arthritis #Constipation #BPH #CKD stage III Rest of problems as per primary team Patient's plan and care discussed with my attending, Dr. Francisco Whitfield MD PGY-2
--- NOTE | 2024-04-09 14:59 | ESPR_ITS ---
<Statement entered by Dick Patino MD - 04/09/24 15:47> Patient was seen and examined at the patient underwent left joint aspiration for possible septic arthritis. IR called orthopedics and joint fluid analysis was consistent with infection therefore patient will be taken to surgery tomorrow per orthopedics recommendations. We are getting cardiac clearance and echocardiogram. Loin Puller, Dr. Singh has been consulted for further recommendations. Patient will be n.p.o. after midnight for surgery tomorrow. Fluid analysis pending. Blood cultures/MRSA screen pending. Creatinine improved. Vitals were stable. All labs and orders were reviewed. I saw and examined the patient, and I agree with current management stated by Dr Francisco MD,PGY1. Plan of care was discussed with the attending physician and resident physician. Disclaimer: Despite multiple revisions, due to the dictation software being used, the document bellow may not be free of grammatical errors including phonetic/typographic errors. However, this does not deter from our commitment to providing health care in the patient's best interest in mind. Dr. Sukumar MD, PGY 2 Documentation for date of: 04/09/24 Subjective Subjective Interval history: IR arthrocentesis today with turbulent aspiration. Dr Hawthorne will plan for surgery tomorrow status post cardiac clearance by Dr. Singh. Exam Vital Signs Temp Pulse Resp BP Pulse Ox O2 Del Method 97.5 F 70 18 151/72 H 94 L Room Air 04/09/24 12:00 04/09/24 12:00 04/09/24 12:00 04/09/24 12:00 04/09/24 12:00 04/09/24 12:00 Narrative Exam Constitutional: Well nourished and in no acute distress Eyes: no conjunctival injection , symmetrical lids. ENMT: Moist Mucous Membranes CVS: RRR RESP: no increased work of breathing, on room air MSK: Left knee with effusion, warm and tender to palpation, no erythema. Decreased range of motion of left knee secondary to pain. Skin: Warm to touch, Dry. No rashes or lesions. Neuro: A&O x 3 Psych: Appropriate mood and affect. Objective Labs 04/09/24 05:05 04/09/24 05:05 Labs: Laboratory Results - last 24 hr 04/08/24 04/08/24 04/09/24 14:49 17:10 05:05 WBC 14.2 H 10.6 RBC 4.11 L 3.64 L Hgb 12.1 L 10.8 L Hct 36.6 L 32.8 L MCV 89 90 MCH 29.4 29.7 MCHC 33.1 32.9 RDW Std Deviation 41.8 42.5 Plt Count 287 268 Neut % (Auto) 78 76 Lymph % (Auto) 9 L 11 Calloway % (Auto) 12 12 Eos % (Auto) 1 1 Baso % (Auto) 0 1 Neut # (Auto) 11.0 H 8.1 H Lymph # (Auto) 1.3 1.1 Calloway # (Auto) 1.8 H 1.2 H Eos # (Auto) 0.1 0.1 Baso # (Auto) 0.0 0.1 Immature Gran # (Auto) 0.05 H 0.05 H Absolute Nucleated RBC 0.00 0.00 Immature Gran % 0 1 H Nucleated RBC % 0 0 ESR 82 H PT 11.7 11.6 INR 1.1 1.1 APTT 34.3 Sodium 133 L 134 L Potassium 4.4 4.1 Chloride 100 101 Carbon Dioxide 23.2 22.3 Anion Gap 10 11 BUN 45 H 41 H Creatinine 2.5 H 2.3 H Estim Creat Clear Calc 23.7 L 25.8 L eGFR 25 L 27 L BUN/Creatinine Ratio 18 18 Glucose 111 H 110 H Calculated Osmolality 278 279 Lactic Acid 1.5 Uric Acid 7.8 Calcium 9.5 8.9 Corrected Calcium 9.5 9.2 Phosphorus 3.2 Magnesium 1.8 Total Bilirubin 0.6 0.6 AST 12 < 10 ALT 10 < 7 L Alkaline Phosphatase 80 69 C-Reactive Prot, Quant 23.4 H Total Protein 7.1 6.1 Albumin 4.5 3.6 D Globulin 2.6 2.5 Albumin/Globulin Ratio 1.7 1.4 Procalcitonin 1.15 H Quality Measures Quality Measures none Advance care planning discussed with:: other Assessment & Plan Assessment Current Active Medications: Generic Name Dose Route Start Last Admin Trade Name Freq PRN Reason Stop Dose Admin Acetaminophen 650 mg 04/08/24 17:13 Acetaminophen 325 Mg Tablet PO 05/08/24 17:12 Q6H PRN PAIN SCALE 1-3 (mild Dextrose 25 ml 04/08/24 18:10 Dextrose 50%-Water Inj 50 Ml Syringe IV 05/08/24 18:09 Q15MIN PRN BG 50-70 responsive npo pt Dextrose 50 ml 04/08/24 18:10 Dextrose 50%-Water Inj 50 Ml Syringe IV 05/08/24 18:09 Q15MIN PRN BG <50 OR BG <70 & pt unresponsive Glucagon 1 mg 04/08/24 18:10 Glucagon Inj 1 Mg Vial IM Q15MIN PRN BG <70, and no IV access Lactated Ringer's 1,000 mls @ 75 mls/hr 04/08/24 17:15 04/09/24 09:00 Lactated Ringers IV 05/08/24 17:14 75 mls/hr .[id number] JOSÉ Administration Doxycycline Hyclate 100 mg/ 100 mls @ 100 mls/hr 04/08/24 21:00 04/09/24 08:51 Sodium Chloride IV 04/15/24 20:59 100 mls/hr BID JOSÉ Administration Ceftriaxone Sodium/Dextrose 2 gm in 50 mls @ 100 mls/hr 04/09/24 09:00 04/09/24 10:27 Rocephin/D5w 2gm IV 04/16/24 08:59 100 mls/hr QDAY JOSÉ Administration Losartan Potassium 50 mg 04/09/24 09:00 04/09/24 08:52 Losartan Potassium 25 Mg Tablet PO 05/09/24 08:59 50 mg QDAY JOSÉ Administration Ondansetron HCl 4 mg 04/08/24 18:08 Ondansetron Inj 2 Mg/Ml Inj 2 Ml IV 05/08/24 18:07 Q6H PRN NAUSEA OR VOMITING Protocol Pantoprazole Sodium 40 mg 04/09/24 09:00 04/09/24 08:52 Pantoprazole Inj 40 Mg Vial IVP 05/09/24 08:59 40 mg QDAY JOSÉ Administration Polyethylene Glycol 17 gm 04/09/24 07:00 04/09/24 08:57 Polyethylene Glycol 17 Gm Packet PO 05/09/24 06:59 Not Given QDAY JOSÉ Sennosides 1 tab 04/08/24 18:08 Senna Tablet PO 05/08/24 18:07 QDAY PRN constipation Protocol Tamsulosin HCl 0.4 mg 04/09/24 09:00 04/09/24 08:52 Tamsulosin Hcl 0.4 Mg Capsule PO 05/09/24 08:59 0.4 mg QDAY JOSÉ Administration Tramadol HCl 50 mg 04/08/24 17:13 04/09/24 03:47 Tramadol Hcl 50 Mg Tablet PO 04/13/24 17:12 50 mg Q6HR PRN Administration PAIN SCALE 4-6 (Moderate Plan Plan Patient is a 83-year-old male presenting with a complaint of left knee swelling for the last 4 to 5 days and associated whole body aches. History of A-fib on Eliquis, hypertension, bilateral knee replacement (left knee 2016, right knee 2018). Denies any recent trauma. #Left knee effusion #Septic arthritis X-ray of the knee shows mild to moderate effusion Initial CBC with a leukocytosis of 14, elevated ESR of 82, CRP of 23 and Pro-Oh of 1.15. On exam patient has swelling and tenderness to palpation. No erythema, not hot to touch. IR arthrocentesis done today which had turbulent fluid. Dr. Wall was consulted and will plan for surgery tomorrow after cardiac clearance by Dr. Singh Plan: ?Continue doxycycline and ceftriaxone for antimicrobial coverage ?Knee aspirate cultures pending ?Surgery tomorrow by Dr. Wall ?Pending cardiac clearance ?Tylenol and tramadol as needed for pain ?N.p.o. at midnight #A-fib History of A-fib on Eliquis Plan: ? Holding meds for surgery #Hypertension ?Resume home losartan 50 mg daily #Constipation ?Resume MiraLAX daily ? Senna as needed #BPH ?Resume home tamsulosin 0.4 mg daily #CKD stage III DDx possible polycystic kidney disease CODE STATUS: DNR/DNI GI prophylaxis: Pantoprazole DVT prophylaxis: SCDs Diet: Low-sodium diet Patient care was overseen with my attending Dr. London, Tony Singh, , PGY1 Attending Provider Attestation/Addendum I attest that I was physically present for the evaluation, physical examination, lab and imaging review of the patient with the residents. I discussed the case with the residents and agree with the findings and plans of care as documented above. At bedside today, patient states his pain is better with the analgesics. Patient underwent left joint aspiration, and was found to have turbid fluid consistent with infection. Orthopedics has been contacted by IR, patient is planned for surgery with orthopedics tomorrow. We will continue with IV doxycycline and ceftriaxone. We will keep patient n.p.o. after midnight for surgery tomorrow. Emanuel London MD
[2024-04-10] VITALS (20 sets, daily range): BP systolic 104–154; BP diastolic 50–98; PULSE 59–99; RESP 12–98; TEMP 36.2–37.1; O2SAT 91–97; BMI 27.4
[2024-04-10] MEDS: traMADol HCL 50 MG TABLET PO ×2 (04:44→13:12)
[2024-04-10] MEDS: RINGERS LACTATED 1000 ML 1,000 ML 75 ML IV ×2 (04:49→20:54)
[2024-04-10 05:26] LABS: Basophils # (Auto) 0.1 Thou/mm3 (0.0-0.2); Basophils % (Auto) 1 % (0-2.5); Eosinophils # (Auto) 0.2 Thou/mm3 (0.0-0.5); Eosinophils % (Auto) 2 % (0-10); Hematocrit 29.7 % (41.0-53.0); Hemoglobin 9.9 g/dL (13.5-16.0); Immature Granulocytes % (Auto) 1 % (0-0); Immature Granulocytes Auto 0.05 Thou/mm3 (0.00-0.00); Lymphocytes # (Auto) 1.3 Thou/mm3 (1.0-4.8); Lymphocytes % (Auto) 14 % (10-50); Mean Corpuscular HGB Conc 33.3 g/dl (31.0-37.0); Mean Corpuscular Hemoglobin 29.2 pg (25.0-35.0); Mean Corpuscular Volume 88 fL (80-100); Monocytes % (Auto) 11 % (0-12); Neutrophils # (Auto) 6.5 Thou/mm3 (1.8-7.7); Neutrophils % (Auto) 72 % (37-80); Nucleated Red Blood Cell % 0 /100 WBC (0); Platelet Count 292 Thou/mm3 (140-440); RDW Standard Deviation 41.5 fL (35.1-43.9); Red Blood Count 3.39 Miln/mm3 (4.50-5.90); White Blood Count 9.1 Thou/mm3 (3.8-10.6)
[2024-04-10 06:28] LABS: Alanine Aminotransferase < 7 U/L (10-49); Albumin, Serum 3.4 gm/dL (3.4-4.8); Albumin/Globulin Ratio 1.4 (1.2-2.2); Alkaline Phosphatase 66 U/L (46-116); Anion Gap 9 (7-16); Aspartate Amino Transferase < 10 U/L (0-34); BUN/Creatinine Ratio 18 Ratio (12-20); Bilirubin,Total 0.5 mg/dL (0.3-1.2); Blood Urea Nitrogen 43 mg/dL (9-23); Calcium 8.6 mg/dL (8.3-10.6); Calcium (Corrected) 9.1 mg/dL (8.5-10.1); Carbon Dioxide 21.8 mMol/L (20.0-31.0); Chloride 104 mMol/L (98-107); Creatinine (Component) 2.4 mg/dL (0.6-1.3); Estimated Creatinine Clearance 24.7 mL/min (>60); Globulin 2.5 gm/dL (2.3-3.5); Glucose 109 mg/dL (74-106); Magnesium 1.7 mg/dL (1.6-2.6); Osmolality,Calculated 281 (275-295); Phosphorous 3.5 mg/dL (2.4-5.1); Potassium 4.1 mMol/L (3.4-5.1); Sodium 135 mMol/L (136-145); Total Protein 5.9 gm/dL (5.7-8.2); eGFR 26 See Note
[2024-04-10] MEDS: DOXYCYCLINE INJ 100 MG in SODIUM CHLORIDE 0.9% (P) 100 ML IV ×2 (09:52→20:53)
[2024-04-10] MEDS: PANTOPRAZOLE INJ 40 MG VIAL IVP (09:52)
[2024-04-10] MEDS: TAMSULOSIN HCL 0.4 MG CAPSULE PO (09:53)
[2024-04-10] MEDS: LOSARTAN POTASSIUM 25 MG TABLET 50 MG PO (09:53)
[2024-04-10] MEDS: Magnesium Sulfate 4 GM Ivpb 4 GM/50 ML BAG IV (09:54)
[2024-04-10] MEDS: POLYETHYLENE GLYCOL 17 GM PACKET PO (09:54)
[2024-04-10] MEDS: cefTRIAXone/D5w 2gm 2 GM/50 ML BAG IV (09:54)
--- NOTE | 2024-04-10 15:14 | PC.SS ---
Rounding note: surgery today with Dr. Wall.
[2024-04-10 16:15] LABS: Synovial Fluid, Crystals* See Sep Rpt
--- NOTE | 2024-04-10 16:15 | SUR.PHASEI ---
1615 Patient arrived to recovery resting comfortably in bed, on oxygen 8L via oxy mask with an oral airway in place, breathing unlabored, vital signs stable, dressing intact to left knee; anika, adaptic, flluffs, abd, bias wraps, silk tape, medium closed wound suction evacuator in place, drain clean without fluid present, lung sounds clear upon auscultation, bilateral dorsalis pedis pulses present when palpated, report received from Nicolas TAN and Pawan MEDICAL DIRECTOR OF HOSPICE
--- NOTE | 2024-04-10 16:28 | PC.CC ---
Addendum entered by Sissy Medrano RN 04/10/24 18:05: 1805 made CD and images pushed over to [facility] through [employer] link. Addendum entered by Sissy Medrano RN 04/10/24 17:54: 1753 clinicals sent to [facility]. Addendum entered by Sissy Medrano RN 04/10/24 17:06: 1654 called [facility], spoke to Clara and initiated the transfer. She stated to fax clinicals and share images through [employer], email provided to send the link. Addendum entered by Sissy Medrano RN 04/10/24 16:46: [address] Wall that pt needs to be transferred for left knee septic implant removal and revision needs Orthopedic services. He stated to call tertiary level hospital like [facility]. Original Note: [address] Wall to find out reason for transfer. Left VM. [address] Singh and Dr. Estevez to find out about the reason for transfer. [facility] stated they are not aware and to call Dr. Wall directly. 1621 received call from pt bedside nurse that pt needs to be transferred for higher level of care per Dr. Hawthorne. I asked the reason for transfer and what services is needed. Bedside nurse stated he doesn't know about it.
--- NOTE | 2024-04-10 16:45 | PD.SUROPNT ---
Date of Procedure 04/10/24 Pre Op Diagnosis Is status post left total knee replacement with septic arthritis Post Op Diagnosis Same Procedure Incision and drainage of the left knee joint synovial biopsy Findings Refer dictation Procedure Description Patient was given general anesthesia. Once satisfactory anesthesia achieved a tourniquet was placed on left upper thigh. Following that the part was thoroughly prepped and draped. After raising the leg for couple of minutes the tourniquet pressure was raised to 350 mmHg The left knee joint was quite swollen. A skin incision was made over the lateral aspect of the suprapatellar pouch and extending distally along the knee joint. Deeper dissection was carried out. Copious amount of fluid which was turbulent in nature came out. Culture swab was obtained for aerobic anaerobic culture sensitivity and for Gram staining Following that copious amount of antibiotic solution was used to irrigate the wound. Hydrogen peroxide solution antibiotic solution and iodine solution was used. Following that Cytomel biopsy was obtained and sent for histopathological examination Hemovac drain was then placed The tensor fascia le was closed in continuous fashion with 1 Vicryl. The subcu tissue was closed with 2-0 Vicryl and skin was closed with anika To cleaning the wound with hydrogen peroxide solution a sterile dressing was applied and tourniquet pressure was released Patient tolerated procedure well. Estimated blood loss 5 mL Anesthesia GETA Pathology / specimen None Estimated Blood Loss 5 Surgeon Tres Hawthorne MD Surgical Staff Operation Date: 04/10/24 17:30 Case Staff FREIGHT RATE ANALYST: Pawan Juan RNvarnisher plasticoater: Namita Felton
--- NOTE | 2024-04-10 17:11 | ESPR_ITS ---
<Statement entered by Dick Patino MD - 04/10/24 18:59> Patient was seen and examined at the bedside. Patient pain has been under control. Patient didnt go for surgery today.Previously had joint fluid asp for left knee septic arthritis fluid analysis was not taken however due to its infective appearance Dr Wall wanted to pursue with surgery however he decided to proceed with transfer to higher care facility. Pending transfer. Cont pain medications and IV antibiotics ceftriaxone and doxycycline.All Labs and orders reviewed. I saw and examined the patient, and I agree with current management stated by Dr Francisco MD,PGY1. Plan of care was discussed with the attending physician and resident physician. Disclaimer: Despite multiple revisions, due to the dictation software being used, the document bellow may not be free of grammatical errors including phonetic/typographic errors. However, this does not deter from our commitment to providing health care in the patient's best interest in mind. Dr. Sukumar MD, PGY 2 Documentation for date of: 04/10/24 Subjective Subjective Interval history: Patient doing well this morning. s/p I&D today with Dr. Wall. Pending transfer. Exam Vital Signs Temp Pulse Resp BP Pulse Ox O2 Del Method O2 Flow Rate 98.0 F 63 15 143/72 H 95 Room Air 4 04/10/24 16:45 04/10/24 17:00 04/10/24 17:00 04/10/24 17:00 04/10/24 17:00 04/10/24 08:00 04/10/24 17:00 Narrative Exam Constitutional: Well nourished and in no acute distress Eyes: no conjunctival injection , symmetrical lids. ENMT: Moist Mucous Membranes CVS: RRR RESP: no increased work of breathing, on room air MSK: Left knee with effusion, warm and tender to palpation, no erythema. Skin: Warm to touch, Dry. No rashes or lesions. Neuro: A&O x 3 Psych: Appropriate mood and affect. Objective Labs 04/11/24 05:23 04/11/24 05:23 Labs: Laboratory Results - last 24 hr 04/10/24 04:23 WBC 9.1 RBC 3.39 L Hgb 9.9 L Hct 29.7 L MCV 88 MCH 29.2 MCHC 33.3 RDW Std Deviation 41.5 Plt Count 292 Neut % (Auto) 72 Lymph % (Auto) 14 [place] % (Auto) 11 Eos % (Auto) 2 Baso % (Auto) 1 Neut # (Auto) 6.5 Lymph # (Auto) 1.3 [place] # (Auto) 1.0 H Eos # (Auto) 0.2 Baso # (Auto) 0.1 Immature Gran # (Auto) 0.05 H Absolute Nucleated RBC 0.00 Immature Gran % 1 H Nucleated RBC % 0 Sodium 135 L Potassium 4.1 Chloride 104 Carbon Dioxide 21.8 Anion Gap 9 BUN 43 H Creatinine 2.4 H Estim Creat Clear Calc 24.7 L eGFR 26 L BUN/Creatinine Ratio 18 Glucose 109 H Calculated Osmolality 281 Calcium 8.6 Corrected Calcium 9.1 Phosphorus 3.5 Magnesium 1.7 Total Bilirubin 0.5 AST < 10 ALT < 7 L Alkaline Phosphatase 66 Total Protein 5.9 Albumin 3.4 Globulin 2.5 Albumin/Globulin Ratio 1.4 Quality Measures Quality Measures VTE prophylaxis Advance care planning discussed with:: patient Assessment & Plan Assessment Current Active Medications: Generic Name Dose Route Start Last Admin Trade Name Freq PRN Reason Stop Dose Admin Acetaminophen 650 mg 04/08/24 17:13 Acetaminophen 325 Mg Tablet PO 05/08/24 17:12 Q6H PRN PAIN SCALE 1-3 (mild Albuterol/Ipratropium 3 ml 04/10/24 15:00 Albuterol/Ipratropium (Duoneb) Rt Shakira 3 Ml Nebu INH 05/10/24 14:59 Q4HRRT PRN WHEEZING Dextrose 25 ml 04/08/24 18:10 Dextrose 50%-Water Inj 50 Ml Syringe IV 05/08/24 18:09 Q15MIN PRN BG 50-70 responsive npo pt Dextrose 50 ml 04/08/24 18:10 Dextrose 50%-Water Inj 50 Ml Syringe IV 05/08/24 18:09 Q15MIN PRN BG <50 OR BG <70 & pt unresponsive Glucagon 1 mg 04/10/24 15:11 Glucagon Inj 1 Mg Vial IM Q15MIN PRN BG <70, and no IV access Hydromorphone HCl 0.5 mg 04/10/24 10:31 Hydromorphone Inj 2 Mg/Ml Vial IVP 04/15/24 10:30 Q4HR PRN Severe Pain 7-10 Lactated Ringer's 1,000 mls @ 75 mls/hr 04/08/24 17:15 04/10/24 04:49 Lactated Ringers IV 05/08/24 17:14 75 mls/hr .[id number] JOSÉ Administration Doxycycline Hyclate 100 mg/ 100 mls @ 100 mls/hr 04/08/24 21:00 04/10/24 09:52 Sodium Chloride IV 04/15/24 20:59 100 mls/hr BID JOSÉ Administration Ceftriaxone Sodium/Dextrose 2 gm in 50 mls @ 100 mls/hr 04/09/24 09:00 04/10/24 09:54 Rocephin/D5w 2gm IV 04/16/24 08:59 100 mls/hr QDAY JOSÉ Administration Losartan Potassium 50 mg 04/09/24 09:00 04/10/24 09:53 Losartan Potassium 25 Mg Tablet PO 05/09/24 08:59 50 mg QDAY JOSÉ Administration Ondansetron HCl 4 mg 04/08/24 18:08 Ondansetron Inj 2 Mg/Ml Inj 2 Ml IV 05/08/24 18:07 Q6H PRN NAUSEA OR VOMITING Protocol Pantoprazole Sodium 40 mg 04/09/24 09:00 04/10/24 09:52 Pantoprazole Inj 40 Mg Vial IVP 05/09/24 08:59 40 mg QDAY JOSÉ Administration Polyethylene Glycol 17 gm 04/09/24 07:00 04/10/24 09:54 Polyethylene Glycol 17 Gm Packet PO 05/09/24 06:59 17 gm QDAY JOSÉ Administration Sennosides 1 tab 04/08/24 18:08 Senna Tablet PO 05/08/24 18:07 QDAY PRN constipation Protocol Tamsulosin HCl 0.4 mg 04/09/24 09:00 04/10/24 09:53 Tamsulosin Hcl 0.4 Mg Capsule PO 05/09/24 08:59 0.4 mg QDAY JOSÉ Administration Tramadol HCl 50 mg 04/10/24 15:11 Tramadol Hcl 50 Mg Tablet PO 04/13/24 17:12 Q6HR PRN PAIN SCALE 4-6 (Moderate Plan Plan Patient is a 83-year-old male presenting with a complaint of left knee swelling for the last 4 to 5 days and associated whole body aches. History of A-fib on Eliquis, hypertension, bilateral knee replacement (left knee 2017, right knee 2019). Denies any recent trauma. #Left knee effusion #Septic arthritis X-ray of the knee shows mild to moderate effusion Initial CBC with a leukocytosis of 14, elevated ESR of 82, CRP of 23 and Pro-Oh of 1.15. On exam patient has swelling and tenderness to palpation. No erythema, not hot to touch. IR arthrocentesis with turbulent fluid. Plan: ?Continue doxycycline and ceftriaxone for antimicrobial coverage ?Knee aspirate cultures pending ?Surgery today with Dr. Wall, I&D -Pending transfer for higher care ?Tylenol, norco and dilaudid for pain #A-fib History of A-fib on Eliquis Plan: ? Holding meds #Hypertension ?Resume home losartan 50 mg daily #Constipation ?Resume MiraLAX daily ? Senna as needed #BPH ?Resume home tamsulosin 0.4 mg daily #CKD stage III DDx possible polycystic kidney disease CODE STATUS: DNR/DNI GI prophylaxis: Pantoprazole DVT prophylaxis: SCDs Diet: Low-sodium diet Patient care was overseen with my attending Dr. Hamilton, Tony Singh DO, PGY1 Attending Provider Attestation/Addendum I have examined the patient, reviewed labs and imaging findings, discussed the case with the resident(s), and reviewed entered orders. I agree with the plan of care as outlined in this note, with these additional summaries/recommendations: Patient currently pending washout of left knee at this time. Patient otherwise appears stable, but still pending final cultures. Still holding home medications and will restart at the discretion of orthopedic surgery. Moi Hamilton MD
--- NOTE | 2024-04-10 17:18 | SUR.PHASEI ---
1715 Report given to Magno RN, patient meets discharge criteria from recovery, awake and talking with staff, on oxygen 4L via nasal cannula, breathing unlabored, vital signs stable, denies pain, dressing intact; no bleeding noted, drain clean; no drainage noted, patient drinking water; tolerating well, denies nausea, patient on the phone talking with his . 1718 Patient transported via bed to room 357 without incident, Magno RN promptly arrived in room and [employer]'s to obtain vital signs signs, patient awake and talking with staff when this rfp writer left patients room.
[2024-04-10 17:20] LABS: Misc Fluid, WBC 28861 /cmm; Synovial Fluid WBC 28861 /cmm
[2024-04-10 17:21] LABS: Misc Fld, Color Yellow; Misc Fld, Source Knee; Misc Fluid, Mononuclear WBC 5 %; Misc Fluid, Polynuclear 95 %; Misc Fluid, RBC 40000 /cmm; Miscellaneous Fld, Appearance Cloudy; Source,Synovial Fluid KNEE; Synovial Fluid Color Yellow
[2024-04-10 17:22] LABS: Synovial Fluid Appearance Cloudy; Synovial Fluid Mononuclear 5 %; Synovial Fluid Polynuclear 95 %; Synovial Fluid RBC 4000 /cmm
--- NOTE | 2024-04-10 18:22 | ESCONSULT_ITS ---
RE: CHLOE STEVENSON : 1940 DATE OF CONSULTATION: 04/09/2024 Thank you, Dr. Singh, for asking me to consult with the patient whom I saw on 04/09/2024. HISTORY OF PRESENT ILLNESS: The patient is status post left total knee replacement done in 2017. The patient stated that last few days the left knee joint was swollen and painful. The patient was unable to walk well. At the time of admission, the patient was started on IV Rocephin and doxycycline. PAST MEDICAL HISTORY: The patient has history of atrial fibrillation, high blood pressure, bilateral total knee replacement, benign prostatic hyperplasia, and left ear deafness. DRUG HISTORY: The patient is on losartan, Eliquis, nitroglycerin and FAMILY HISTORY: Noncontributory. SOCIAL HISTORY: Noncontributory. PHYSICAL EXAMINATION: GENERAL: Fully alert and oriented person. VITAL SIGNS: Pulse is 78 per minute. Blood pressure is 140/76. NECK: Soft, supple. No mass felt. Trachea is centrally placed. CARDIOVASCULAR SYSTEM: Fast and second heart sounds are normal. No murmur heard. RESPIRATORY SYSTEM: Bilateral vascular breath sounds. CHEST: Clear. ABDOMEN: Soft. No mass felt. Bowel sounds present. EXTREMITIES: Left knee examination reveals significant swelling. There is tenderness. Active range of motion is painful. The patient underwent left knee joint aspiration on 09/06/2024. I discussed the situation with Dr. Hatch and he stated that he aspirated the knee and some turbulent fluid came out. I talked to the patient and explained that he needs further surgical procedure. I explained that I will drain the knee, but he may need revision of knee replacement, which should be done at a higher level of care. I told that usually it is done at two-stage procedure. First, the surgeon will take off the implant and put cement block and after a few months, the cement block is taken out and a knee replacement is to be done. The patient is taking his time to understand the whole process. The risks with anesthesia was explained and that includes, but not limited to reaction to anesthetic agents, cardiac arrest, or it might be fatal. Risk with operation includes infection and if that happens, the patient may need further surgical procedure. No guarantees given regarding outcome of the procedure and no relief of symptoms. The patient is fully aware of that. Surgery is booked for 04/10/2024. Appropriate lab was done. DT: 16:53:11 TT: 18:01:00 Ref: [id number] - TID: [id number]
[2024-04-11] VITALS (10 sets, daily range): BP systolic 133–151; BP diastolic 72–85; PULSE 59–102; RESP 14–96; TEMP 36.1–36.4; O2SAT 93–96; BMI 27.8
--- NOTE | 2024-04-11 01:58 | ESPR_ITS ---
RE: CHLOE STEVENSON : 1940 DATE OF SERVICE: 04/10/2024 SUBJECTIVE: The patient is admitted to the hospital with septic arthritis _ cardiac clearance for surgery. He is doing fairly well, not having any chest pain or shortness of breath. The patient underwent surgery successfully, doing fairly well now, not having chest pain or shortness of breath. He is overall doing well. OBJECTIVE: Vital Signs: Blood pressure 116/70, pulse rate 66, respirations 12_ temperature is normal. Head: Atraumatic. Neck: Supple. No JVD. Lungs: Decreased breath sound in bases. No rales or rhonchi. Heart: S1, S2 regular. S4 gallop heard. Abdomen: Thin and soft. Extremities: No edema. Genitourinary: Not performed. Rectal: Not performed. MAJOR GIFTS DIRECTOR: Normal. LABORATORY DATA: His lab data showed evidence of renal insufficiency. His creatinine is 2.4 and BUN is 43. His renal panel is normal. ASSESSMENT: 1. _ septic arthritis, underwent incision and drainage, and aspirate was sent for cultures. 2. Status post bilateral knee replacement. 3. History of atrial fibrillation, on Eliquis. RECOMMENDATIONS: Continue medical management. No changes were made. I will review the cardiac echocardiogram upon completion. DT: 23:48:55 TT: 01:11:00 Ref: [id number] - TID: [id number] [facility]
[2024-04-11 06:07] LABS: Basophils % (Auto) 0 % (0-2.5); Eosinophils % (Auto) 0 % (0-10); Hematocrit 35.2 % (41.0-53.0); Hemoglobin 11.6 g/dL (13.5-16.0); Immature Granulocytes % (Auto) 0 % (0-0); Immature Granulocytes Auto 0.04 Thou/mm3 (0.00-0.00); Lymphocytes # (Auto) 0.7 Thou/mm3 (1.0-4.8); Lymphocytes % (Auto) 7 % (10-50); Mean Corpuscular Hemoglobin 29.7 pg (25.0-35.0); Mean Corpuscular Volume 90 fL (80-100); Monocytes # (Auto) 0.5 Thou/mm3 (0.0-0.8); Monocytes % (Auto) 5 % (0-12); Neutrophils # (Auto) 8.7 Thou/mm3 (1.8-7.7); Neutrophils % (Auto) 88 % (37-80); Nucleated Red Blood Cell % 0 /100 WBC (0); Platelet Count 340 Thou/mm3 (140-440); RDW Standard Deviation 42.5 fL (35.1-43.9); Red Blood Count 3.91 Miln/mm3 (4.50-5.90); White Blood Count 9.9 Thou/mm3 (3.8-10.6)
[2024-04-11 06:52] LABS: Alanine Aminotransferase 8 U/L (10-49); Albumin, Serum 3.7 gm/dL (3.4-4.8); Albumin/Globulin Ratio 1.4 (1.2-2.2); Alkaline Phosphatase 76 U/L (46-116); Anion Gap 11 (7-16); Aspartate Amino Transferase < 10 U/L (0-34); BUN/Creatinine Ratio 18 Ratio (12-20); Bilirubin,Total 0.3 mg/dL (0.3-1.2); Blood Urea Nitrogen 46 mg/dL (9-23); Calcium 8.9 mg/dL (8.3-10.6); Calcium (Corrected) 9.1 mg/dL (8.5-10.1); Carbon Dioxide 21.8 mMol/L (20.0-31.0); Chloride 103 mMol/L (98-107); Creatinine (Component) 2.5 mg/dL (0.6-1.3); Estimated Creatinine Clearance 23.7 mL/min (>60); Globulin 2.7 gm/dL (2.3-3.5); Glucose 189 mg/dL (74-106); Magnesium 2.4 mg/dL (1.6-2.6); Osmolality,Calculated 288 (275-295); Phosphorous 4.9 mg/dL (2.4-5.1); Potassium 4.5 mMol/L (3.4-5.1); Sodium 136 mMol/L (136-145); Total Protein 6.4 gm/dL (5.7-8.2); eGFR 25 See Note
--- NOTE | 2024-04-11 08:38 | PC.CM ---
Addendum entered by Massiel Medina RN 04/11/24 18:33: I received a call back from Anna at [facility]. She states their orthpedic fellow Dr. Day spoke to Dr. Hawthorne and he states patient does not need an acute transfer. He feels patient could follow up with their outpatient orthopedic Clinic. She provided me with the number to the clinic [phone] or [phone]. Anna states patient can call when she is discharged, and she can make an appointment with Dr. Wolf or Dr. Mendez. Anna states patient would need to bring medical records and a CD. I spoke to Dr. Singh and I provided her with the information. I let her know that I also contacted [facility] and I had not heard back from them at this time. Dr. Singh stated Dr. Hawthorne stated he wanted us to try 3 facilities and if they all declined, he would consider outpatient care and management. I will be back tomorrow so I will follow up with the transfer. [facility] already declined patient stating patient could follow up as outpatient. Addendum entered by Massiel Medina RN 04/11/24 15:29: 1430 I spoke to Anna at [facility] and she states they are reviewing all the information. Addendum entered by Massiel Medina RN 04/11/24 12:20: 1210 I received a call from Anna with [facility] and she asked me to push over images. I pushed images via [employer]. Addendum entered by Massiel Medina RN 04/11/24 11:34: I initiated a transfer with [facility] and I faxed over information. Addendum entered by Massiel Medina RN 04/11/24 11:06: 1030 I contacted [facility] and initiated a transfer. I faxed over information. Addendum entered by Massiel Medina RN 04/11/24 09:26: I spoke to Dr. Singh and she states she spoke to Dr. Hawthorne. He is aware [facility] declined patient. He would like us to try a couple other facilities. Dr. Singh states Dr. Hawthorne will speak to the doctors for peer to peer. I will reach out to [facility] and [facility]. Original Note: I called and spoke to [facility] transfer nurse Charis. She states Dr. Whitfield spoke to their ortho Dr. Gil yesterday at 2030. Charis states Dr. Gil told Dr. Whitfield that patient does not need an acute transfer. He told her patient could be seen as outpatient. Patient declined do to the fact [facility] does not feel patient needs an acute transfer. I will follow up with my doctor this morning.
[2024-04-11] MEDS: PANTOPRAZOLE INJ 40 MG VIAL IVP (09:17)
[2024-04-11] MEDS: POLYETHYLENE GLYCOL 17 GM PACKET PO (09:17)
[2024-04-11] MEDS: LOSARTAN POTASSIUM 25 MG TABLET 50 MG PO (09:18)
[2024-04-11] MEDS: TAMSULOSIN HCL 0.4 MG CAPSULE PO (09:18)
--- NOTE | 2024-04-11 09:27 | PD.RESEVENT ---
Documentation for date of: 04/11/24 Event Note Event Note: Spoke with Dr. Gil, attending physician orthopedist on-call from [facility] around 20:30PM yesterday to discuss possibility of transfer to higher level of care. Dr. Gil is aware that patient received an I&D with washout yesterday with our in-house orthopedist, and recommended no transfer needed at this time, and to continue with IV Abx for 6 weeks. If patient doesn't do well after this time period, patient can f/u in outpatient clinic at [facility]. If further information or recommendations are needed at a later time, Dr. Gil is welcome to receive call via transfer center. Above information was signed out to day team today. Patient's care and plan discussed with my attending, Dr. London. Karla Whitfield, PGY-2
[2024-04-11] MEDS: Vancomycin Inj 2,000 MG in SODIUM CHLORIDE 0.9% 500 ML 500 ML 150 MG IV (12:07)
[2024-04-11] MEDS: PIPER/TAZO 3.375 GM 3.375 GM/50 ML BAG IV ×2 (13:51→21:21)
[2024-04-11] MEDS: APIXABAN 2.5 MG TABLET PO ×2 (13:51→21:21)
--- NOTE | 2024-04-11 14:30 | ESPR_ITS ---
Documentation for date of: 04/11/24 Subjective Subjective Interval history: Transfer was declined by [facility] last night. Discussed plan with Dr. Wall and transfer center, will continue to attempt transfer. Patient is becoming increasingly upset about prolonged hospital stay. My team discussed plan with patient and and answered questions to the best of our ability. Will continue to update them when transfer accepted. Exam Vital Signs Temp Pulse Resp BP Pulse Ox O2 Del Method O2 Flow Rate 97.0 F 95 16 145/73 H 94 L Nasal Cannula 4 04/11/24 04:00 04/11/24 09:18 04/11/24 04:00 04/11/24 09:18 04/11/24 04:00 04/11/24 04:00 04/10/24 22:37 Narrative Exam Constitutional: Well nourished and in no acute distress Eyes: no conjunctival injection , symmetrical lids. ENMT: Moist Mucous Membranes CVS: RRR RESP: no increased work of breathing, on room air MSK: Left knee with drain in place, fluid is serosanguineous. Dressing is clean dry and intact. Skin: Warm to touch, Dry. No rashes or lesions. Neuro: A&O x 3 Psych: Appropriate mood and affect. Objective Labs 04/14/24 09:20 04/14/24 09:20 Labs: Laboratory Results - last 24 hr 04/10/24 04/11/24 15:00 05:23 WBC 9.9 RBC 3.91 L Hgb 11.6 L Hct 35.2 L MCV 90 MCH 29.7 MCHC 33.0 RDW Std Deviation 42.5 Plt Count 340 D Neut % (Auto) 88 H Lymph % (Auto) 7 L [place] % (Auto) 5 Eos % (Auto) 0 Baso % (Auto) 0 Neut # (Auto) 8.7 H Lymph # (Auto) 0.7 L [place] # (Auto) 0.5 Eos # (Auto) 0.0 Baso # (Auto) 0.0 Immature Gran # (Auto) 0.04 H Absolute Nucleated RBC 0.00 Immature Gran % 0 Nucleated RBC % 0 Sodium 136 Potassium 4.5 Chloride 103 Carbon Dioxide 21.8 Anion Gap 11 BUN 46 H Creatinine 2.5 H Estim Creat Clear Calc 23.7 L eGFR 25 L BUN/Creatinine Ratio 18 Glucose 189 H D Calculated Osmolality 288 Calcium 8.9 Corrected Calcium 9.1 Phosphorus 4.9 Magnesium 2.4 Total Bilirubin 0.3 AST < 10 ALT 8 L Alkaline Phosphatase 76 Total Protein 6.4 Albumin 3.7 Globulin 2.7 Albumin/Globulin Ratio 1.4 Fluid Source Knee Fluid Color Yellow Fluid Appearance Cloudy Fluid WBC 42310 Fluid RBC 29279 Fluid Polynuclear WBCs 95 Fluid Mononuclear WBCs 5 Synovial Source KNEE Synovial Color Yellow Synovial Appearance Cloudy Synovial WBC 80617 Synovial RBC 4000 Synov Polynuclear WBCs 95 Synov Mononuclear WBCs 5 Quality Measures Quality Measures VTE prophylaxis Advance care planning discussed with:: other Assessment & Plan Assessment Current Active Medications: Generic Name Dose Route Start Last Admin Trade Name Freq PRN Reason Stop Dose Admin Acetaminophen 650 mg 04/08/24 17:13 Acetaminophen 325 Mg Tablet PO 05/08/24 17:12 Q6H PRN PAIN SCALE 1-3 (mild Albuterol/Ipratropium 3 ml 04/10/24 15:00 Albuterol/Ipratropium (Duoneb) Rt Shakira 3 Ml Nebu INH 05/10/24 14:59 Q4HRRT PRN WHEEZING Apixaban 2.5 mg 04/11/24 12:00 04/11/24 13:51 Apixaban 2.5 Mg Tablet PO 05/11/24 11:59 2.5 mg BID JOSÉ Administration Dextrose 25 ml 04/08/24 18:10 Dextrose 50%-Water Inj 50 Ml Syringe IV 05/08/24 18:09 Q15MIN PRN BG 50-70 responsive npo pt Dextrose 50 ml 04/08/24 18:10 Dextrose 50%-Water Inj 50 Ml Syringe IV 05/08/24 18:09 Q15MIN PRN BG <50 OR BG <70 & pt unresponsive Glucagon 1 mg 04/10/24 15:11 Glucagon Inj 1 Mg Vial IM Q15MIN PRN BG <70, and no IV access Hydromorphone HCl 0.5 mg 04/10/24 10:31 Hydromorphone Inj 2 Mg/Ml Vial IVP 04/15/24 10:30 Q4HR PRN Severe Pain 7-10 Piperacillin/Tazobactam/Dextrose 3.375 gm in 50 mls @ 12.5 mls/hr 04/11/24 14:00 04/11/24 13:51 Zosyn IV 04/18/24 13:59 12.5 mls/hr Q8HR JOSÉ Administration Protocol Losartan Potassium 50 mg 04/09/24 09:00 04/11/24 09:18 Losartan Potassium 25 Mg Tablet PO 05/09/24 08:59 50 mg QDAY JOSÉ Administration Ondansetron HCl 4 mg 04/08/24 18:08 Ondansetron Inj 2 Mg/Ml Inj 2 Ml IV 05/08/24 18:07 Q6H PRN NAUSEA OR VOMITING Protocol Pantoprazole Sodium 40 mg 04/09/24 09:00 04/11/24 09:17 Pantoprazole Inj 40 Mg Vial IVP 05/09/24 08:59 40 mg QDAY JOSÉ Administration Pharmacy Consult 1 each 04/11/24 09:30 Vancomycin Pharmacy To Dose 1 Each Each IV 05/11/24 09:29 QDAY PRN PROTOCOL Polyethylene Glycol 17 gm 04/09/24 07:00 04/11/24 09:17 Polyethylene Glycol 17 Gm Packet PO 05/09/24 06:59 17 gm QDAY JOSÉ Administration Sennosides 1 tab 04/08/24 18:08 Senna Tablet PO 05/08/24 18:07 QDAY PRN constipation Protocol Tamsulosin HCl 0.4 mg 04/09/24 09:00 04/11/24 09:18 Tamsulosin Hcl 0.4 Mg Capsule PO 05/09/24 08:59 0.4 mg QDAY JOSÉ Administration Tramadol HCl 50 mg 04/10/24 15:11 Tramadol Hcl 50 Mg Tablet PO 04/13/24 17:12 Q6HR PRN PAIN SCALE 4-6 (Moderate Plan Plan Patient is a 83-year-old male presenting with a complaint of left knee swelling for the last 4 to 5 days and associated whole body aches. History of A-fib on Eliquis, hypertension, bilateral knee replacement (left knee 2017, right knee 2018). Denies any recent trauma. #Left knee effusion #Septic arthritis X-ray of the knee shows mild to moderate effusion Initial CBC with a leukocytosis of 14, elevated ESR of 82, CRP of 23 and Pro-Oh of 1.15. On exam patient has swelling and tenderness to palpation. No erythema, not hot to touch. IR arthrocentesis with turbulent fluid? Status post I&D on 04/[address] Wall Per Dr. Wall, pt will need removal of the implant and placement of a cement block and after a few months, the cement block will be taken out and knee replacement needs to be done. This needs to be done at a an institution with a higher level of care. Thus, attempting transfer. Patient will also need up to 6 weeks of IVAB and recommends starting a PICC line. Switched from doxycycline/ceftriaxone to Vanco/ Zosyn per his recommendations. Plan: ?s/p doxycycline and ceftriaxone (02/06-04/11) ?Vancomycin and Zosyn (04/11?present ?Knee aspirate cultures pending -Pending transfer for higher care ?Tylenol, norco and dilaudid for pain ?Pending PICC line insertion #A-fib History of A-fib on Eliquis Plan: ?Eliquis 2.5 mg twice daily #Hypertension ?Resume home losartan 50 mg daily #Constipation ?Resume MiraLAX daily ? Senna as needed #BPH ?Resume home tamsulosin 0.4 mg daily #CKD stage III DDx possible polycystic kidney disease CODE STATUS: DNR/DNI GI prophylaxis: Pantoprazole DVT prophylaxis: SCDs Diet: Low-sodium diet Patient care was overseen with my attending Dr. Hamilton, Tony Singh DO, PGY1 Attending Provider Attestation/Addendum I reviewed all labs, imaging, and notes with the resident and agree with assessment and plan as documented above. Patient currently pending transfer to higher level of care for two part knee replacement repair 04/12 [facility]JI. Moi Hamilton MD
--- NOTE | 2024-04-11 16:09 | XR_ITS ---
Examination: CT left knee, without contrast. 2-D sagittal reconstructions. 2-D coronal reconstructions. 3-D reconstructions. Date and time of exam:April 11, 2024 1838 hrs. Indications: Knee pain this week, assess for loosening of the prosthetic knee components CTDI: vol (mGy):10.4 DLP: (mGycm):8 Technique: Multiple 1.25 mm axial sections of the left knee have been obtained. 2-D sagittal and coronal reconstructions have been obtained. 3-D reconstructions have been obtained. Low dose protocols were performed. One or more of the following dose reduction techniques were used; automated exposure control, adjustment of the mA and/or KV according to patient size, use of iterative reconstruction technique. Findings: Total left knee arthroplasty. Satisfactory alignment No loosening of the prosthetic femoral or tibial plateau prosthetic components No fracture Air in the suprapatellar joint space with moderate knee effusion Drain in the suprapatellar joint space Soft tissue vascular calcification Impression: Total left knee arthroplasty with satisfactory alignment No loosening of the prosthetic components noted
[2024-04-11 16:52] LABS: C-Reactive Protein 19.6 mg/dL (0.0-0.9)
[2024-04-11 16:59] LABS: Sed Rate (ESR) 79 mm/hr (0-20)
--- NOTE | 2024-04-11 18:34 | PD.RESEVENT ---
Documentation for date of: 04/11/24 Event Note Event Note: Call from transfer center at around 6:30 PM. Spoke with transfer center nurse. Nurse relayed information that [facility] denied transfer. Dr. Wall spoke with Dr. Day an orthopedist at [facility]. Dr. Day noted that patient does not require inpatient services for his septic arthritis and that the cement procedure can be done as an outpatient. He gave Dr Hawthorne [facility] orthopedic clinic's information so that the patient can follow-up outpatient. Please see transfer center nurses note for more information on the conversation.
[2024-04-12] VITALS (10 sets, daily range): BP systolic 126–183; BP diastolic 70–93; PULSE 13–103; RESP 14–20; TEMP 36.3–37.2; O2SAT 92–98
--- NOTE | 2024-04-12 02:00 | PC.NURSE ---
patient states he is seeing stars by the television in his room but TV was off and lights were off. While in the room, patient states don't turn on the lights so you get to see the stars by the TV. Patient also states why is this box talking to me referring to the IV pump on his right side. Patient was assessed, patient alert and oriented to person, place, time, situation, no c/o pain, headache, chest pain. Called Dr. Blount regarding this, per MD will come to assess patient at bedside.
--- NOTE | 2024-04-12 02:20 | PC.NURSE ---
Dr. Blount at bedside to assess patient. Talked to patient about POC, patient aware he is hallucinating but is alert and oriented x4. New orders pending.
--- NOTE | 2024-04-12 02:26 | ESPR_ITS ---
RE: CHLOE STEVENSON : 1940 DATE OF SERVICE: 04/11/2024 SUBJECTIVE: The patient is doing fairly well. He has undergone drainage for septic arthritis. Cardiac larson, he is doing fairly well. He does not complain of any chest pain or shortness of breath. The patient underwent septic arthritis drainage. Dr. Wall recommended surgery at [facility]. Apparently, [facility] denies transfer as it could be done as an outpatient. We will continue IV antibiotics. Cardiac larson, the patient is quite stable, not having any cardiac symptoms, chest pain, or shortness of breath. OBJECTIVE: Vital Signs: Blood pressure is stable at 140/70, pulse rate is 95, respirations 16, temperature normal. HEENT: Head is atraumatic. Neck: Supple. No JVD. Chest: Symmetrical. Lungs: Decreased breath sounds. No rales or rhonchi. Heart: S1 and S2, regular. Abdomen: Thin and soft. Extremities: No edema. DIAGNOSTIC DATA: The echo showed normal left ventricular function, EF 55% to 60%. Mild mitral regurgitation. IMPRESSION: 1. Septic arthritis status post drainage. 2. Negative cardiac echocardiogram findings. 3. Hypertension, stable. RECOMMENDATIONS: Cardiac larson, the patient is stable. He will monitor for any further issues, but the patient may require orthopedic surgery again, but appears to be low cardiac risk for surgery if he has to be transferred to [facility] for surgery. DT: 00:05:37 TT: 02:24:00 Ref: [id number] - TID: [id number]
[2024-04-12] MEDS: MELATONIN 3 MG TABLET PO (02:43)
[2024-04-12 06:06] LABS: Basophils % (Auto) 0 % (0-2.5); Eosinophils % (Auto) 0 % (0-10); Hematocrit 31.3 % (41.0-53.0); Hemoglobin 10.5 g/dL (13.5-16.0); Immature Granulocytes % (Auto) 1 % (0-0); Immature Granulocytes Auto 0.09 Thou/mm3 (0.00-0.00); Lymphocytes # (Auto) 1.1 Thou/mm3 (1.0-4.8); Lymphocytes % (Auto) 7 % (10-50); Mean Corpuscular HGB Conc 33.5 g/dl (31.0-37.0); Mean Corpuscular Hemoglobin 29.3 pg (25.0-35.0); Mean Corpuscular Volume 87 fL (80-100); Monocytes # (Auto) 0.9 Thou/mm3 (0.0-0.8); Monocytes % (Auto) 6 % (0-12); Neutrophils # (Auto) 13.5 Thou/mm3 (1.8-7.7); Neutrophils % (Auto) 86 % (37-80); Nucleated Red Blood Cell % 0 /100 WBC (0); Platelet Count 372 Thou/mm3 (140-440); RDW Standard Deviation 41.4 fL (35.1-43.9); Red Blood Count 3.58 Miln/mm3 (4.50-5.90); White Blood Count 15.7 Thou/mm3 (3.8-10.6)
[2024-04-12] MEDS: PIPER/TAZO 3.375 GM 3.375 GM/50 ML BAG IV ×3 (06:22→21:00)
[2024-04-12 06:40] LABS: Alanine Aminotransferase 8 U/L (10-49); Albumin, Serum 3.4 gm/dL (3.4-4.8); Albumin/Globulin Ratio 1.5 (1.2-2.2); Alkaline Phosphatase 63 U/L (46-116); Anion Gap 9 (7-16); Aspartate Amino Transferase 10 U/L (0-34); BUN/Creatinine Ratio 19 Ratio (12-20); Bilirubin,Total 0.4 mg/dL (0.3-1.2); Blood Urea Nitrogen 47 mg/dL (9-23); Calcium 8.2 mg/dL (8.3-10.6); Calcium (Corrected) 8.7 mg/dL (8.5-10.1); Carbon Dioxide 22.7 mMol/L (20.0-31.0); Chloride 107 mMol/L (98-107); Creatinine (Component) 2.5 mg/dL (0.6-1.3); Estimated Creatinine Clearance 25.9 mL/min (>60); Globulin 2.3 gm/dL (2.3-3.5); Glucose 121 mg/dL (74-106); Magnesium 2.3 mg/dL (1.6-2.6); Osmolality,Calculated 290 (275-295); Phosphorous 3.4 mg/dL (2.4-5.1); Sodium 139 mMol/L (136-145); Total Protein 5.7 gm/dL (5.7-8.2); eGFR 25 See Note
[2024-04-12] MEDS: POLYETHYLENE GLYCOL 17 GM PACKET PO (08:24)
[2024-04-12] MEDS: LOSARTAN POTASSIUM 25 MG TABLET 50 MG PO (08:25)
[2024-04-12] MEDS: APIXABAN 2.5 MG TABLET PO ×2 (08:25→20:20)
[2024-04-12] MEDS: TAMSULOSIN HCL 0.4 MG CAPSULE PO (08:26)
[2024-04-12] MEDS: PANTOPRAZOLE INJ 40 MG VIAL IVP (09:00)
--- NOTE | 2024-04-12 09:05 | PC.CM ---
Addendum entered by Rimma Day RN 04/13/24 10:50: Spoke to Dr. Singh requesting closer out patient follow up care, spoke to Rimma who stated that out patient referrals would have to be set up through PCP since patient has outpt follow up set up with [facility], Dr. singh made aware Addendum entered by Rimma Day RN 04/13/24 09:46: [id number] Hansen who states Dr. Dunn did speak with [facility] yesterday and they will call transfer nurse back with update about transfer Addendum entered by Massiel Medina RN 04/12/24 18:03: I spoke to Dr. Dunn and she was going to follow up to see if patient can be discharged with IB abx for home with home health. She asked me when could patient angelica at [facility] for follow up care. I told her to look at my notes and possibly speak to the doctor at the [facility] at [facility]. She states she will follow up with them Original Note: I called and [facility] and I spoke to Sima transfer nurse. We discussed patient and I presented patient. Sima asked if i tried other facilites. I let her know I send to [facility] and [facility]. I let her know they both declined stating patient could be followed up as outpatient. Sima stated they probably would say the same if they could proceed with transfer request, but they are at capacity and they declined transfer. I called and spoke o Dr. Dunn and I gave her the update. She states she will follow up with Dr. Wall to find out how he wants to proceed.
--- NOTE | 2024-04-12 09:26 | PC.CM ---
I contacted [facility] and I spoke to Trisha. She states they are still pending an open bed. She verified they did get the transfer back agreement. I provided the number to Dr. Worrell.
[2024-04-12] MEDS: Vancomycin Inj 750 MG in SODIUM CHLORIDE 0.9% 250 ML 250 ML 120 MG IV (10:25)
--- NOTE | 2024-04-12 14:28 | PC.PT ---
Patient is safe to ambulate to the bathroom with 1 staff assist and a FWW. RN notified.
--- NOTE | 2024-04-12 15:51 | ESPR_ITS ---
RE: CHLOE STEVENSON : 1940 DATE OF SERVICE: 04/12/2024 S: The patient is an 83-year-old woman admitted to the hospital with septic arthritis, continues to feel well. There is still some drainage, but feeling better. Not having any shortness of breath or chest pain. White count is still elevated at 15.7, hemoglobin 10.5. The patient had several questions whether requests joint replacement apparently being [facility] at [place] was consulted and I am not sure exactly the plan. The patient continues to be on antibiotic therapy. Cardiac larson was stable, not having shortness of breath or chest pain. O: Vital Signs: Remains stable. Blood pressure is slightly elevated today; however 142/83, but later on higher, but most of the readings are normal. HEENT: Unremarkable. Neck: Supple. No JVD. Chest: Symmetrical. Lungs: Decreased breath sound. No rales or rhonchi. Heart: S1, S2 regular. No gallops. Abdomen: Thin and soft. Extremities: Left knee has drainage in place and mild swelling. A: 1. Septic arthritis, requiring drainage. 2. 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 3. Hypertension. 4. Atrial fibrillation. P: Continue present medical management including apixaban, also on losartan for hypertension. Might consider increasing losartan to 100 mg daily since the blood pressure running on the high side. DT: 14:50:13 TT: 15:49:00 Ref: [id number] - TID: [id number]
--- NOTE | 2024-04-12 16:58 | PD.RESPRO ---
Documentation for date of: 04/12/24 Subjective Subjective Interval history: Patient seen and examined at bedside. Has no been rejected from 3 facilities including [facility], [facility], [facility]. Will contact [facility] tomorrow for clarification of when pt and follow up after getting PICC. Plan for PICC line tomorrow and 6 weeks antibiotics. WBCs downtrending to 15.7, Cr 2.5. Continue vanc/zosyn. Increasing losartan to 100 mg daily per cardiolgy recs. Exam Vital Signs Temp Pulse Resp BP Pulse Ox O2 Del Method O2 Flow Rate 99.0 F 70 18 165/89 H 93 L Nasal Cannula 2 04/12/24 16:00 04/12/24 16:00 04/12/24 16:00 04/12/24 16:00 04/12/24 16:00 04/12/24 16:04/11/24 16:58 Narrative Exam Constitutional: Well nourished and in no acute distress Eyes: no conjunctival injection , symmetrical lids. ENMT: Moist Mucous Membranes CVS: RRR RESP: no increased work of breathing, on room air GI: soft, non tender, non distended MSK: Left knee with drain in place, fluid is serosanguineous. Dressing is clean dry and intact. Skin: Warm to touch, Dry. No rashes or lesions. Neuro: A&O x 3 Psych:Irritable but cooperative Objective Labs 04/12/24 04:18 04/12/24 04:18 Labs: Laboratory Results - last 24 hr 04/11/24 04/12/24 16:24 04:18 WBC 15.7 H D RBC 3.58 L Hgb 10.5 L Hct 31.3 L MCV 87 MCH 29.3 MCHC 33.5 RDW Std Deviation 41.4 Plt Count 372 D Neut % (Auto) 86 H Lymph % (Auto) 7 L [place] % (Auto) 6 Eos % (Auto) 0 Baso % (Auto) 0 Neut # (Auto) 13.5 H Lymph # (Auto) 1.1 [place] # (Auto) 0.9 H Eos # (Auto) 0.0 Baso # (Auto) 0.0 Immature Gran # (Auto) 0.09 H Absolute Nucleated RBC 0.00 Immature Gran % 1 H Nucleated RBC % 0 ESR 79 H Sodium 139 Potassium 4.0 D Chloride 107 Carbon Dioxide 22.7 Anion Gap 9 BUN 47 H Creatinine 2.5 H Estim Creat Clear Calc 25.9 L eGFR 25 L BUN/Creatinine Ratio 19 Glucose 121 H D Calculated Osmolality 290 Calcium 8.2 L Corrected Calcium 8.7 Phosphorus 3.4 Magnesium 2.3 Total Bilirubin 0.4 AST 10 ALT 8 L Alkaline Phosphatase 63 Total Protein 5.7 Albumin 3.4 Globulin 2.3 Albumin/Globulin Ratio 1.5 Random Vancomycin 17.0 Quality Measures Quality Measures VTE prophylaxis Advance care planning discussed with:: patient Assessment & Plan Assessment Current Active Medications: Generic Name Dose Route Start Last Admin Trade Name Freq PRN Reason Stop Dose Admin Acetaminophen 650 mg 04/08/24 17:13 Acetaminophen 325 Mg Tablet PO 05/08/24 17:12 Q6H PRN PAIN SCALE 1-3 (mild Albuterol/Ipratropium 3 ml 04/10/24 15:00 Albuterol/Ipratropium (Duoneb) Rt Shakira 3 Ml Nebu INH 05/10/24 14:59 Q4HRRT PRN WHEEZING Apixaban 2.5 mg 04/11/24 12:00 04/12/24 08:25 Apixaban 2.5 Mg Tablet PO 05/11/24 11:59 2.5 mg BID JOSÉ Administration Dextrose 25 ml 04/08/24 18:10 Dextrose 50%-Water Inj 50 Ml Syringe IV 05/08/24 18:09 Q15MIN PRN BG 50-70 responsive npo pt Dextrose 50 ml 04/08/24 18:10 Dextrose 50%-Water Inj 50 Ml Syringe IV 05/08/24 18:09 Q15MIN PRN BG <50 OR BG <70 & pt unresponsive Glucagon 1 mg 04/10/24 15:11 Glucagon Inj 1 Mg Vial IM Q15MIN PRN BG <70, and no IV access Hydromorphone HCl 0.5 mg 04/10/24 10:31 Hydromorphone Inj 2 Mg/Ml Vial IVP 04/15/24 10:30 Q4HR PRN Severe Pain 7-10 Piperacillin/Tazobactam/Dextrose 3.375 gm in 50 mls @ 12.5 mls/hr 04/11/24 14:00 04/12/24 13:32 Zosyn IV 04/18/24 13:59 12.5 mls/hr Q8HR JOSÉ Administration Protocol Vancomycin HCl 750 mg/ Sodium 250 mls @ 120 mls/hr 04/12/24 10:00 04/12/24 10:25 Chloride IV 04/19/24 09:59 120 mls/hr QDAY@1000 JOSÉ Administration Losartan Potassium 100 mg 04/13/24 09:00 Losartan Potassium 25 Mg Tablet PO 05/13/24 08:59 QDAY JOSÉ Ondansetron HCl 4 mg 04/08/24 18:08 Ondansetron Inj 2 Mg/Ml Inj 2 Ml IV 05/08/24 18:07 Q6H PRN NAUSEA OR VOMITING Protocol Pantoprazole Sodium 40 mg 04/09/24 09:00 04/12/24 09:00 Pantoprazole Inj 40 Mg Vial IVP 05/09/24 08:59 40 mg QDAY JOSÉ Administration Pharmacy Consult 1 each 04/11/24 09:30 Vancomycin Pharmacy To Dose 1 Each Each IV 05/11/24 09:29 QDAY PRN PROTOCOL Polyethylene Glycol 17 gm 04/09/24 07:00 04/12/24 08:24 Polyethylene Glycol 17 Gm Packet PO 05/09/24 06:59 17 gm QDAY JOSÉ Administration Sennosides 1 tab 04/12/24 09:00 04/12/24 10:18 Senna Tablet PO 05/12/24 08:59 Not Given QDAY JOSÉ Protocol Tamsulosin HCl 0.4 mg 04/09/24 09:00 04/12/24 08:26 Tamsulosin Hcl 0.4 Mg Capsule PO 05/09/24 08:59 0.4 mg QDAY JOSÉ Administration Tramadol HCl 50 mg 04/10/24 15:11 Tramadol Hcl 50 Mg Tablet PO 04/13/24 17:12 Q6HR PRN PAIN SCALE 4-6 (Moderate Plan Plan Patient is a 83-year-old male presenting with a complaint of left knee swelling for the last 4 to 5 days and associated whole body aches. History of A-fib on Eliquis, hypertension, bilateral knee replacement (left knee 2017, right knee 2018). Denies any recent trauma. #Septic arthritis 2/2 #Left knee effusion s/p I&D X-ray of the knee shows mild to moderate effusion Initial CBC with a leukocytosis of 14, elevated ESR of 82, CRP of 23 and Pro-Oh of 1.15. On exam patient has swelling and tenderness to palpation. No erythema, not hot to touch. IR arthrocentesis with turbulent fluid? Status post I&D on 04/[address] Wall Per Dr. Wall, pt will need removal of the implant and placement of a cement block and after a few months, the cement block will be taken out and knee replacement needs to be done. This needs to be done at a institution with a higher level of care. Patient will also need up to 6 weeks of IVAB and recommends starting a PICC line. Switched from doxycycline/ceftriaxone to Vanco/ Zosyn per his recommendations. Pt has now been rejected by 3 faciliteis. Plan for PICC line and contact [facility] for when pt can get follow up apt. Plan: ?s/p doxycycline and ceftriaxone (02/06-04/11) ?Vancomycin and Zosyn (04/11?present ?Knee aspirate cultures pending -Pending transfer for higher care ?Tylenol, norco and dilaudid for pain ?Pending PICC line insertion #Hx A-fib History of A-fib on Eliquis Plan: ?Eliquis 2.5 mg twice daily #Hypertension ?Resume home losartan 50 mg daily #Constipation ?Resume MiraLAX daily ? Senna as needed #BPH ?Resume home tamsulosin 0.4 mg daily #CKD stage III DDx possible polycystic kidney disease CODE STATUS: DNR/DNI GI prophylaxis: Pantoprazole DVT prophylaxis: SCDs Diet: Low-sodium diet Patient care was overseen with my attending Dr. Hamilton. Ivonne Dunn, PGY1 Attending Provider Attestation/Addendum I have examined the patient, reviewed labs and imaging findings, discussed the case with the resident(s), and reviewed entered orders. I agree with the plan of care as outlined in this note, with these additional summaries/recommendations: 83-year-old with history of replacement presents to the ED with left knee effusion, swelling, warmth found to have prosthetic joint infection. Underwent arthrocentesis with synovial fluid culture still pending. Patient was taken to the OR by Ortho and attempted washout and revision, however surgeon felt that this procedure was too high risk and instead elected to transfer him to higher level of care for 2 part knee replacement. Unable to find any specialist who will except his case at this time, we will set up with PICC line discussed case with Ortho who recommends reestablish a concrete plan so that patient has close follow-up with larger Center prior to completing home course of antibiotics. Mio Hamilton MD
--- NOTE | 2024-04-12 20:00 | PC.NURSE ---
patient is restless, agitated, concerned about plan of care, says he's suspicious of the doctors that are taking care of his knee. Patient states They're not doing anything here, why can't I just go home , explained to patient plan of care. Answered all patient's questions but still has more questions that he wants a doctor to answer, called Dr. Wood to talk to patient and explain his plan of care.
--- NOTE | 2024-04-12 21:20 | PC.NURSE ---
Dr. Wood at bedside.
[2024-04-13] VITALS (12 sets, daily range): BP systolic 153–189; BP diastolic 76–90; PULSE 67–93; RESP 16–94; TEMP 36.3–37.3; O2SAT 92–99
[2024-04-13 06:15] LABS: Basophils # (Auto) 0.1 Thou/mm3 (0.0-0.2); Basophils % (Auto) 1 % (0-2.5); Eosinophils # (Auto) 0.3 Thou/mm3 (0.0-0.5); Eosinophils % (Auto) 3 % (0-10); Hematocrit 31.9 % (41.0-53.0); Hemoglobin 10.3 g/dL (13.5-16.0); Immature Granulocytes % (Auto) 1 % (0-0); Immature Granulocytes Auto 0.11 Thou/mm3 (0.00-0.00); Lymphocytes # (Auto) 1.3 Thou/mm3 (1.0-4.8); Lymphocytes % (Auto) 13 % (10-50); Mean Corpuscular HGB Conc 32.3 g/dl (31.0-37.0); Mean Corpuscular Hemoglobin 29.2 pg (25.0-35.0); Mean Corpuscular Volume 90 fL (80-100); Monocytes % (Auto) 10 % (0-12); Neutrophils # (Auto) 7.5 Thou/mm3 (1.8-7.7); Neutrophils % (Auto) 73 % (37-80); Nucleated Red Blood Cell % 0 /100 WBC (0); Platelet Count 368 Thou/mm3 (140-440); RDW Standard Deviation 43.7 fL (35.1-43.9); Red Blood Count 3.53 Miln/mm3 (4.50-5.90); White Blood Count 10.3 Thou/mm3 (3.8-10.6)
[2024-04-13 06:47] LABS: Alanine Aminotransferase 9 U/L (10-49); Albumin, Serum 3.3 gm/dL (3.4-4.8); Albumin/Globulin Ratio 1.4 (1.2-2.2); Alkaline Phosphatase 63 U/L (46-116); Anion Gap 9 (7-16); Aspartate Amino Transferase 13 U/L (0-34); BUN/Creatinine Ratio 17 Ratio (12-20); Bilirubin,Total 0.5 mg/dL (0.3-1.2); Blood Urea Nitrogen 39 mg/dL (9-23); Calcium 8.6 mg/dL (8.3-10.6); Calcium (Corrected) 9.2 mg/dL (8.5-10.1); Carbon Dioxide 24.6 mMol/L (20.0-31.0); Chloride 109 mMol/L (98-107); Creatinine (Component) 2.3 mg/dL (0.6-1.3); Estimated Creatinine Clearance 28.1 mL/min (>60); Globulin 2.4 gm/dL (2.3-3.5); Glucose 108 mg/dL (74-106); Magnesium 2.2 mg/dL (1.6-2.6); Osmolality,Calculated 295 (275-295); Potassium 4.3 mMol/L (3.4-5.1); Sodium 143 mMol/L (136-145); Total Protein 5.7 gm/dL (5.7-8.2); eGFR 27 See Note
[2024-04-13] MEDS: PIPER/TAZO 3.375 GM 3.375 GM/50 ML BAG IV (06:51)
--- NOTE | 2024-04-13 07:21 | PC.NURSE ---
When patient was transferring from bed to commode, accidentally disconnected patient from his hemo vac from his L knee.Slight drainage/bleeding found, Called Dr. Hawthorne regarding this, states to put ABD pad and wrap securely. Per MD was going to remove vac today anyways, will see the patient today.
[2024-04-13] MEDS: TAMSULOSIN HCL 0.4 MG CAPSULE PO (09:55)
[2024-04-13] MEDS: APIXABAN 2.5 MG TABLET PO ×2 (09:56→20:34)
[2024-04-13] MEDS: LOSARTAN POTASSIUM 25 MG TABLET 100 MG PO (09:57)
[2024-04-13] MEDS: POLYETHYLENE GLYCOL 17 GM PACKET PO (09:58)
[2024-04-13] MEDS: PANTOPRAZOLE INJ 40 MG VIAL IVP (10:00)
--- NOTE | 2024-04-13 12:45 | XR_ITS ---
Examination: Ultrasound-guided needle placement right brachial vein. Dual-lumen central line placement (PICC line). Fluoroscopy AP chest, portable, single view Exam date and time:April 13, 2024 1430 hours INDICATIONS: Need for long-term intravenous antibiotic therapy A timeout was completed verifying correct patient, procedure, site, positioning Informed consent provided Technique: The patient's site was prepped and draped in sterile fashion. Maximum Sterile Barrier Technique used including cap, mask, sterile gown, sterile gloves, and sterile full body drape. If ultrasound technique used: sterile gel and sterile probe covers. Hand Hygiene performed using proper scrub, soap and water, or alcohol-based hand rub. Site right portable apparatus utilized to confirm patency of the right brachial vein Utilizing ultrasonographic guidance successful 21-gauge needle puncture into the right brachial vein Ultrasound images recorded and stored. 5 cc 1% lidocaine administered for local anesthetic. Successful micropuncture with a 21-gauge needle is performed. 0.18 wire guide is then introduced into the SVC under fluoroscopic guidance. Dual-lumen catheter dilator is then introduced, followed by the catheter in the SVC and proper position under fluoroscopic guidance. Successful aspiration of blood and flushing with heparinized saline is then performed in the 2 venous limbs. The catheter sutured in place. Findings: Under fluoroscopy, the tip of the catheter is in good position in the vena cava. Portable chest x-ray, post line placement is ordered. Estimated blood loss 3 cc The patient tolerated the procedure well and was in stable and satisfactory condition at completion of the procedure Impression: Successful ultrasound-guided needle placement right brachial vein Successful placement of dual lumen central line, percutaneous Fluoroscopy 0.1 minute radiation dose 0.69 milligray 1 spot fluoroscopic chest film. AP chest completion procedure demonstrates satisfactory position central line. May use central line.
--- NOTE | 2024-04-13 14:11 | PC.NURSE ---
patient came down for a PICC line insertion, consent signed by MD and patient, patient was then placed on the bed on supine position, time out was performed by the team and PICC line was inserted on the right AC marked at 34cm, a may use order was placed, no complications during procedure, bedside report given to BRITNEY Galindo
--- NOTE | 2024-04-13 16:15 | PC.SS ---
SS follow up note; SS met with patient at bedside, SS inquired about patient needing IV ABX. Patient reports that he will be discharging home with HH and his will be able to administer the medication for him. Patient has no Preference of a HH agency.
--- NOTE | 2024-04-13 17:05 | ESPR_ITS ---
<Statement entered by Marii Cohn MD - 04/13/24 17:52> I discussed with and supervised my co-resident involved in the care of this patient. I agree with the assessment and plan as documented above. Patient seen and examined at bedside. He expressed frustration regarding his knee. Synovial fluid culture grew E. Coli. Will continue IV antibiotics, changed from vancomycin and zosyn to doxycyline and ceftriaxone through the PICC line, with home health when ready for discharge. Marii Cohn MD PGY-3 Documentation for date of: 04/13/24 Subjective Subjective Interval history: Patient has now been denied by 3 facilities [facility], [place] and [facility]. Dr Wall spoke with all 3 facilities who recommend outpatient follow-up. [place] was willing to schedule follow-up at their orthopedic clinic. Discussed new plan with Dr. Wall who is agreeable. Will plan for PICC line and send patient home with 6 weeks of IV antibiotics/ home health and follow-up at the [place] orthopedic clinic. Dr Hawthorne will see patient later today. Unclear yet whether or not drain will be removed. Exam Vital Signs Temp Pulse Resp BP Pulse Ox O2 Del Method O2 Flow Rate 97.3 F 76 16 180/90 H 96 Room Air 2 04/13/24 11:46 04/13/24 13:27 04/13/24 13:27 04/13/24 13:27 04/13/24 13:27 04/13/24 13:27 04/11/24 16:58 Narrative Exam Constitutional: Anxious Eyes: no conjunctival injection , symmetrical lids. ENMT: Moist Mucous Membranes CVS: RRR RESP: no increased work of breathing, on room air MSK: Left knee with drain in place, fluid is serosanguineous. Dressing is clean dry and intact, mildly tender to palpation Skin: Warm to touch, Dry. No rashes or lesions. Neuro: A&O x 3 Psych: Appropriate mood and affect. Objective Labs 04/14/24 09:20 04/14/24 09:20 Labs: Laboratory Results - last 24 hr 04/13/24 04:42 WBC 10.3 D RBC 3.53 L Hgb 10.3 L Hct 31.9 L MCV 90 MCH 29.2 MCHC 32.3 RDW Std Deviation 43.7 Plt Count 368 Neut % (Auto) 73 Lymph % (Auto) 13 [place] % (Auto) 10 Eos % (Auto) 3 Baso % (Auto) 1 Neut # (Auto) 7.5 Lymph # (Auto) 1.3 [place] # (Auto) 1.0 H Eos # (Auto) 0.3 Baso # (Auto) 0.1 Immature Gran # (Auto) 0.11 H Absolute Nucleated RBC 0.00 Immature Gran % 1 H Nucleated RBC % 0 Sodium 143 Potassium 4.3 Chloride 109 H Carbon Dioxide 24.6 Anion Gap 9 BUN 39 H Creatinine 2.3 H Estim Creat Clear Calc 28.1 L eGFR 27 L BUN/Creatinine Ratio 17 Glucose 108 H Calculated Osmolality 295 Calcium 8.6 Corrected Calcium 9.2 Phosphorus 4.0 Magnesium 2.2 Total Bilirubin 0.5 AST 13 ALT 9 L Alkaline Phosphatase 63 Total Protein 5.7 Albumin 3.3 L Globulin 2.4 Albumin/Globulin Ratio 1.4 Quality Measures Quality Measures VTE prophylaxis Advance care planning discussed with:: patient Assessment & Plan Assessment Current Active Medications: Generic Name Dose Route Start Last Admin Trade Name Freq PRN Reason Stop Dose Admin Acetaminophen 650 mg 04/08/24 17:13 Acetaminophen 325 Mg Tablet PO 05/08/24 17:12 Q6H PRN PAIN SCALE 1-3 (mild Albuterol/Ipratropium 3 ml 04/10/24 15:00 Albuterol/Ipratropium (Duoneb) Rt Shakira 3 Ml Nebu INH 05/10/24 14:59 Q4HRRT PRN WHEEZING Apixaban 2.5 mg 04/11/24 12:00 04/13/24 09:56 Apixaban 2.5 Mg Tablet PO 05/11/24 11:59 2.5 mg BID JOSÉ Administration Dextrose 25 ml 04/08/24 18:10 Dextrose 50%-Water Inj 50 Ml Syringe IV 05/08/24 18:09 Q15MIN PRN BG 50-70 responsive npo pt Dextrose 50 ml 04/08/24 18:10 Dextrose 50%-Water Inj 50 Ml Syringe IV 05/08/24 18:09 Q15MIN PRN BG <50 OR BG <70 & pt unresponsive Doxycycline Hyclate 100 mg 04/13/24 21:00 Doxycycline 100 Mg Tablet PO 04/20/24 20:59 BID JOSÉ Glucagon 1 mg 04/10/24 15:11 Glucagon Inj 1 Mg Vial IM Q15MIN PRN BG <70, and no IV access Hydromorphone HCl 0.5 mg 04/10/24 10:31 Hydromorphone Inj 2 Mg/Ml Vial IVP 04/15/24 10:30 Q4HR PRN Severe Pain 7-10 Ceftriaxone Sodium/Dextrose 2 gm in 50 mls @ 100 mls/hr 04/14/24 09:00 Rocephin/D5w 2gm IV 04/21/24 08:59 QDAY JOSÉ Losartan Potassium 100 mg 04/13/24 09:00 04/13/24 09:57 Losartan Potassium 25 Mg Tablet PO 05/13/24 08:59 100 mg QDAY JOSÉ Administration Ondansetron HCl 4 mg 04/08/24 18:08 Ondansetron Inj 2 Mg/Ml Inj 2 Ml IV 05/08/24 18:07 Q6H PRN NAUSEA OR VOMITING Protocol Pantoprazole Sodium 40 mg 04/09/24 09:00 04/13/24 10:00 Pantoprazole Inj 40 Mg Vial IVP 05/09/24 08:59 40 mg QDAY JOSÉ Administration Polyethylene Glycol 17 gm 04/09/24 07:00 04/13/24 09:58 Polyethylene Glycol 17 Gm Packet PO 05/09/24 06:59 17 gm QDAY JOSÉ Administration Sennosides 1 tab 04/12/24 09:00 04/13/24 09:59 Senna Tablet PO 05/12/24 08:59 Not Given QDAY JOSÉ Protocol Tamsulosin HCl 0.4 mg 04/09/24 09:00 04/13/24 09:55 Tamsulosin Hcl 0.4 Mg Capsule PO 05/09/24 08:59 0.4 mg QDAY JOSÉ Administration Tramadol HCl 50 mg 04/10/24 15:11 Tramadol Hcl 50 Mg Tablet PO 04/13/24 17:12 Q6HR PRN PAIN SCALE 4-6 (Moderate Plan Plan Patient is a 83-year-old male presenting with a complaint of left knee swelling for the last 4 to 5 days and associated whole body aches. History of A-fib on Eliquis, hypertension, bilateral knee replacement (left knee 2016, right knee 2018). Denies any recent trauma. #Septic arthritis 2/2 #Left knee effusion s/p I&D X-ray of the knee shows mild to moderate effusion Initial CBC with a leukocytosis of 14, elevated ESR of 82, CRP of 23 and Pro-Oh of 1.15. On exam patient has swelling and tenderness to palpation. No erythema, not hot to touch. IR arthrocentesis with turbulent fluid? Status post I&D on 04/[address] Wall Per Dr. Wall, pt will need removal of the implant and placement of a cement block and after a few months, the cement block will be taken out and knee replacement needs to be done. This needs to be done at a institution with a higher level of care. Patient will also need up to 6 weeks of IVAB and recommends starting a PICC line. Switched from doxycycline/ceftriaxone to Vanco/ Zosyn per his recommendations. Synovial fluid culture positive for E. coli. Plan: ?Pt has now been rejected by 3 faciliteis. Plan for PICC line and contact [place] for follow up apt. if patient does not want to go to [place] he can go to PCP and get referral to local orthopedist. Working on setting up patient with home health. Dr Hawthorne to evaluate patient at bedside today and determine whether or not drain will be removed. ?s/p doxycycline and ceftriaxone (02/06-04/11) ?Vancomycin and Zosyn (04/11?04/13) ?Synovial fluid culture positive for E. coli: Switch to IV ceftriaxone 2 g daily and oral doxycycline 100 mg twice daily. Patient will continue antibiotics until May 19. ?Tylenol, norco and dilaudid for pain #Hx A-fib History of A-fib on Eliquis Plan: ?Eliquis 2.5 mg twice daily #Hypertension ?Resume home losartan 50 mg daily #Constipation ?Resume MiraLAX daily ? Senna as needed #BPH ?Resume home tamsulosin 0.4 mg daily #CKD stage III DDx possible polycystic kidney disease CODE STATUS: DNR/DNI GI prophylaxis: Pantoprazole DVT prophylaxis: SCDs Diet: Low-sodium diet Patient care was overseen with my attending Dr. Tamara Singh, PGY1 Attending Provider Attestation/Addendum Face to face evaluation was performed by me. I have personally seen and examined the patient. I discussed the assessment and plan with the entire medicine team. I reviewed available medical records, imaging studies, laboratory results. I agree with the above subjective data, objective findings, assessment and plan except as corrected by me or noted below #Septic arthritis 2/2 E Coli #Left knee effusion s/p I&D CKD stage III possible polycystic kidney disease? BPH Patient wants to go home, Orthopedic Surgery on board, s.p L knee fluid aspiration and drainage placement Home health to be set up- pt not septic , cultures with E Coli- single agent should be enough- susceptibilities available 2 G ceftriaxone for up to 6 weeks planned, Orthopedic Surgery follow up after Dc
--- NOTE | 2024-04-13 18:06 | PC.CC ---
Addendum entered by Sissy Medrano RN 04/13/24 18:09: [facility] stated their team will follow up in am. Pt need HH for IV abx. Addendum entered by Sissy Medrano RN 04/13/24 18:08: [facility] accepted the pt. [facility]. Original Note: No preference of HH agency per SS notes. HH referral sent on [facility]. Awaiting responses. Pending start of care date.
--- NOTE | 2024-04-13 18:08 | PC.CC ---
[facility] accepted the pt. Booked Claire.
[2024-04-13] MEDS: DOXYCYCLINE 100 MG TABLET PO (20:34)
[2024-04-14] VITALS (7 sets, daily range): BP systolic 131–186; BP diastolic 83–106; PULSE 67–84; RESP 17–94; TEMP 36.6–37.2; O2SAT 94–97
[2024-04-14] MEDS: TAMSULOSIN HCL 0.4 MG CAPSULE PO (08:10)
[2024-04-14] MEDS: APIXABAN 2.5 MG TABLET PO (08:10)
[2024-04-14] MEDS: DOXYCYCLINE 100 MG TABLET PO (08:11)
[2024-04-14] MEDS: LOSARTAN POTASSIUM 25 MG TABLET 100 MG PO (08:11)
[2024-04-14] MEDS: PANTOPRAZOLE INJ 40 MG VIAL IVP (08:12)
[2024-04-14] MEDS: POLYETHYLENE GLYCOL 17 GM PACKET PO (08:12)
[2024-04-14] MEDS: cefTRIAXone/D5w 2gm 2 GM/50 ML BAG IV (08:13)
[2024-04-14 09:40] LABS: Basophils # (Auto) 0.1 Thou/mm3 (0.0-0.2); Basophils % (Auto) 1 % (0-2.5); Eosinophils # (Auto) 0.2 Thou/mm3 (0.0-0.5); Eosinophils % (Auto) 2 % (0-10); Hematocrit 32.6 % (41.0-53.0); Hemoglobin 10.7 g/dL (13.5-16.0); Immature Granulocytes % (Auto) 1 % (0-0); Immature Granulocytes Auto 0.14 Thou/mm3 (0.00-0.00); Lymphocytes # (Auto) 1.4 Thou/mm3 (1.0-4.8); Lymphocytes % (Auto) 13 % (10-50); Mean Corpuscular HGB Conc 32.8 g/dl (31.0-37.0); Mean Corpuscular Hemoglobin 29.1 pg (25.0-35.0); Mean Corpuscular Volume 89 fL (80-100); Monocytes # (Auto) 0.9 Thou/mm3 (0.0-0.8); Monocytes % (Auto) 8 % (0-12); Neutrophils # (Auto) 8.1 Thou/mm3 (1.8-7.7); Neutrophils % (Auto) 75 % (37-80); Nucleated Red Blood Cell % 0 /100 WBC (0); Platelet Count 401 Thou/mm3 (140-440); RDW Standard Deviation 42.4 fL (35.1-43.9); Red Blood Count 3.68 Miln/mm3 (4.50-5.90); White Blood Count 10.8 Thou/mm3 (3.8-10.6)
--- NOTE | 2024-04-14 09:44 | PC.CM ---
Addendum entered by Massiel Medina RN 04/14/24 12:48: I spoke to Srini David and provided him with the information that was provided from [facility]. I let him know the cost would be co pay of $572.99 for 9-day supply. Each week will vary but this is approximately for each week. He asked that the [facility] call his directly and discuss plan of care. Original Note: Insurance came back with a co pay of $572.99 for 9-day supply. Each week will vary but this is approximately for each week.
[2024-04-14 09:58] LABS: Alanine Aminotransferase 12 U/L (10-49); Albumin, Serum 3.6 gm/dL (3.4-4.8); Albumin/Globulin Ratio 1.4 (1.2-2.2); Alkaline Phosphatase 67 U/L (46-116); Anion Gap 10 (7-16); Aspartate Amino Transferase 12 U/L (0-34); BUN/Creatinine Ratio 17 Ratio (12-20); Bilirubin,Total 0.5 mg/dL (0.3-1.2); Blood Urea Nitrogen 35 mg/dL (9-23); Calcium 8.5 mg/dL (8.3-10.6); Calcium (Corrected) 8.8 mg/dL (8.5-10.1); Carbon Dioxide 23.5 mMol/L (20.0-31.0); Chloride 106 mMol/L (98-107); Creatinine (Component) 2.1 mg/dL (0.6-1.3); Estimated Creatinine Clearance 30.8 mL/min (>60); Globulin 2.5 gm/dL (2.3-3.5); Glucose 179 mg/dL (74-106); Osmolality,Calculated 289 (275-295); Potassium 3.9 mMol/L (3.4-5.1); Sodium 139 mMol/L (136-145); Total Protein 6.1 gm/dL (5.7-8.2); eGFR 30 See Note
--- NOTE | 2024-04-14 16:41 | ESDS_ITS ---
Planned Discharge Date 04/14/24 DS: Providers Provider Date of admission: 04/08/24 17:13 Primary care physician: Chad Esquivel MD Admitting Provider: Emanuel London MD Attending Provider on Admission: Facundo Mcdonald MD Consults: 04/08/24 16:43 Consult to Orthopedic Stat Comment: sepsis knee Consulting Provider: Tres Hawthorne 04/09/24 08:36 Referral Physical Therapy Routine Comment: Physician Instructions: 04/09/24 14:53 Consult to Cardiology Stat Comment: cardiac clearance Consulting Provider: Sisi Singh 04/10/24 16:47 Referral - Senior Internal Auditor Stat Service Needed for Transfer: Orthopedics Addl Comments:: Patient is a 83-year-old male presenting with a complaint of left knee swelling for the last 4 to 5 days and associated whole body aches. History of A-fib on Eliquis, hypertension, bilateral knee replacement (left knee 2017, right knee 2018). Denies any recent trauma. Suspected septic arthritis. Knee aspirate was turbulent, done by IR. Doctor Anjum Wall consulted and evaluated patient and noted that the patient needed to be transferred for higher level of care. Attending Provider on DC: Facundo Mcdonald MD Discharging Provider: Tony Singh DO DS: Diagnosis Problem List Completed Was Problem List Reviewed/Reconciled?: Yes Hospital Course Hospital Course Hospital course: Discharge summary: This patient is a 83-year-old male with past medical history of bilateral total knee replacement came with left knee pain swelling and fevers for the last 4 to 5 days. Patient is admitted for septic arthritis. History of A-fib on Eliquis preventive dose. Initial labs with an elevated ESR of 82, CRP of 23 and Pro-Oh of 1.15. Orthopedics, Dr. Wall was consulted who recommended to do IR guided joint aspiration. Was empirically started with IV Rocephin and doxycycline (02/06-04/11). I&D done on 04/10 with drain placement. Initially Dr. Wall recommending transfer to higher level of care for removal of the implant and placement of a cement block. Patient was declined by [facility], [facility] and [facility]. [facility] noted that patient is okay to follow-up in their orthopedic clinic after discharge and are recommending 6 weeks of IV antibiotics. PICC line placed. Patient was briefly switched from doxycycline and ceftriaxone to vancomycin and Zosyn per Dr. Wall recommendations (04/11?04/13). Once cultures came back as positive for E. coli they can Zosyn were discontinued and patient was placed on ceftriaxone 2 g daily (04/13). Patient was told to follow up with [facility] orthopedic clinic once discharged and call to schedule an appointment. Patient understands that he can go to his PCP if he would like referral for more local provider. Home health was set up and patient was discharged. Patient will complete his course of IV ceftriaxone until May 19. Discharge instruction: Please call the [facility] orthopedic clinic at [phone] or [phone] once you are discharged.Make an appointment with Dr. Wolf or Dr. Mendez. You must bring your medical records and a CD! You can also attempt to reach out to your PCP to get referral to local orthopedist in the [facility] and follow-up with them for continued care. Follow-up with orthopedist Dr. Wall in clinic on 04/20. We are sending you home with a special IV for medications. Your home health nurse will help administer them for you in the IV. We have prescribed ceftriaxone 2 g daily. Discharge diagnosis: #Septic arthritis 04/12 #Left knee effusion s/p I&D #Hx A-fib #Hypertension #Constipation #BPH #CKD stage III Patient was evaluated and seen with my attending Dr. Mcdonald, Tony Singh DO, PGY1 Time Spent with Patient Time attestation: Total time spent providing and/or coordinating discharge services: Home Health Home Health Referral Orders: 04/13/24 14:07 Home Health Referral Routine Reason For Exam: IV antibiotics Home-Bound The patient must either because of illness or injury, need the aid of supp ortive devices such as crutches, canes, wheelchairs, and walkers; the use of special transportation; or the assistance of another person in order to leave their place of residence; OR have a condi tion such that leaving his or her home is medically contraindicated. In addition, the patient also meets the following criteria: patient is normally unable to leave the home and leaving home requires considerable taxing effort. Addendum to Home Health Certification Practitioner's Certification: I certify that the patient has been under my care in the hospital and the care of attending physician (see below). We had a cbnq-sl-gvdy encounter on (see date below). My clinical findings indicate that the patient is home bound per the above criteria and the Home Health Services noted in these orders are medically necessary. The primary reason for the rmdq-ak-tzkh encounter is related to the fact that the patient requires home health services. Date Certifying Gumr-dy-Wtxz Physician Encounter: 04/08/24 Physician's Name who will Assume Oversight for Services: Segundo Lainez Physician's Phone No.who will Assume Oversight for Service: HIGHWAY RESEARCH ENGINEER - Community Resources: No PT to Evaluate: Yes PT to evaluate and provide a treatmnet plan to increase patient's mobility and strength. Wound Care: No IV Therapy: Yes: weekly labs CBC, CMP, ESR, CRP to be done starting 04/20- results to PCP IV Medication: Ceftriaxone IV Dose: 2 Gram IV Frequency: daily IV Stop Date: 05/19/24 Discontinue PICC Line Once Treatment Complete: Yes RN Safety Evaluation: Yes RN to evaluate and create a plan of care that will produce positive outcomes. Palliative Treatment: No Palliative treatment and evaluate the need for hospice. Home Health Aide - Personal Care: No Home Health Aide to assist with any ADL's. Exam Vital Signs Temp Pulse Resp BP Pulse Ox O2 Del Method O2 Flow Rate 97.8 F 84 17 186/86 H 96 Room Air 2 04/14/24 16:00 04/14/24 16:00 04/14/24 16:04/14/24 16:04/14/24 16:00 04/14/24 16:04/11/24 16:58 Narrative Exam Constitutional: Well-appearing Eyes: no conjunctival injection , symmetrical lids. ENMT: Moist Mucous Membranes CVS: RRR RESP: no increased work of breathing, on room air MSK: Left knee with drain in place, fluid is serosanguineous. Dressing is clean dry and intact, mildly tender to palpation Skin: Warm to touch, Dry. No rashes or lesions. Neuro: A&O x 3 Psych: Appropriate mood and affect. Discharge Plan Plan Patient Disposition: Home w/HOME HEALTH Disposition Comment: Stable Prescriptions/Referrals Prescriptions/Med Rec: New losartan 50 mg tablet 50 mg PO QDAY Qty: 30 0RF Eliquis 2.5 mg tablet 2.5 mg PO BID Qty: 30 0RF tramadol 50 mg tablet 50 mg PO Q12H Qty: 14 0RF Continued tamsulosin 0.4 mg Capsule,Extended Release 24hr 0.4 mg PO DAILY Discontinued metoprolol tartrate 25 mg Tablet 25 mg PO BID aspirin 81 mg Tablet,Chewable 81 mg PO ONCE PM Referrals: Tres Hawthorne MD [Physician] - Chad Esquivel MD [Primary Care Provider] - Patient/Caregiver Discharge Instructions Other Discharge Activity Instructions:: Please call the [facility] orthopedic clinic at [phone] or [phone] once you are discharged.Make an appointment with Dr. Wolf or Dr. Mendez. You must bring your medical records and a CD! You can also attempt to reach out to your PCP to get referral to local orthopedist in the [facility] and follow-up with them for continued care. Follow-up with orthopedist Dr. Wall in clinic on 04/20. We are sending you home with a special IV for medications. Your home health nurse will help administer them for you in the IV. We have prescribed ceftriaxone 2 g daily. Print Language: Kiswahili Stand Alone Forms: Nancy Award Info., Patient Portal Info Letter Discharge Order Discharge Orders: Discharge (Routine); Ordered 04/14/24 Ordered By: Tony Singh Quality Discharge Quality Measures VTE prophylaxis Attestestation Attestation Face to face evaluation was performed by me. I have personally seen and examined the patient. I discussed the assessment and plan with the entire medicine team. I reviewed available medical records, imaging studies, laboratory results. I agree with the above subjective data, objective findings, assessment and plan except as corrected by me or noted below #Septic arthritis 2/2 E Coli #Left knee effusion s/p I&D CKD stage III possible polycystic kidney disease? BPH Patient to be dced on IV ceftriaxone 2 G daily, PICC line, remove after last dose of IV Abxs, Home health, weekly labs CBC, CMP, CRP ESR- results to be sent to PCP Orthopedic Surgery follow up including [facility] Orth[facility] Surgery referral- information to be provided upon dc for family /patient to call and schedule, but they would prefer someone clsoer maybe in [place]- PCP to refer.
--- NOTE | 2024-04-14 16:41 | PC.CM ---
Patient has been accepted by [facility] health and [facility]. They can open patient tomorrow. I spoke to patients nurse and to Dr. Singh and I gave them the information. I faxed over updated home health orders with the correct d/c date.
--- NOTE | 2024-04-15 10:51 | PC.CC ---
Addendum entered by Ssisy Medrano RN 04/15/24 10:54: Start of care date with Claire is today 04/15/24 and [facility] delivered the meds yesterday. HH referral is complete. Original Note: sent dc orders and dc summary to [facility] and [facility].
--- NOTE | 2024-04-15 10:52 | PC.CC ---
sent dc orders and dc summary to [facility] and [facility].
== END 2024-04-14 17:43 | disposition home health service (06) | DRG 550 ==
LOC: SERX 16:53 → SERHOLD 04-09 06:18 → S3NX 04-09 06:18
PROVIDERS: Nurse Practitioner Family; Orthopaedic Surgery; Student in an Organized Health Care Education/Training Program; Admitting Provider Student in an Organized Health Care Education/Training Program; Emergency Provider Emergency Medicine; PCP Orthopaedic Surgery; Visit Provider Internal Medicine
PROC: 0S9D0ZX Drainage of Left Knee Joint, Open Approach, Diagnostic (ICD-10-PCS; principal; 2024-04-10 17:30)
DX: M00.862 Arthritis due to other bacteria, left knee (principal); B96.20 Unspecified Escherichia coli [E. coli] as the cause of diseases classified elsewhere; M25.462 Effusion, left knee; I12.9 Hypertensive chronic kidney disease with stage 1 through stage 4 chronic kidney disease, or unspecified chronic kidney disease; N18.30 Chronic kidney disease, stage 3 unspecified; I48.91 Unspecified atrial fibrillation; N40.0 Benign prostatic hyperplasia without lower urinary tract symptoms; H91.92 Unspecified hearing loss, left ear; K59.00 Constipation, unspecified; Z66 Do not resuscitate; Z96.653 Presence of artificial knee joint, bilateral; Z79.01 Long term (current) use of anticoagulants; Z79.899 Other long term (current) drug therapy
CPT/HCPCS: 36415; 73560; 73700; 80053; 80202; 83605; 83735; 84100; 84145; 84550; 85025; 85610; 85652; 85730; 86140; 87040; 87070; 87077; 87081; 87186; 87205; 89051; 93225; 93306; 93971; 96365; 96367; 97162; 99285; A4217; A4649; C1751; C1894; J0131; J0696; J1100; J1580; J2405; J2470; J2543; J2704; J3010; J3371; J3475; J3490; J7040; J7050; J7120; A9270; J0665

== ENCOUNTER → 2024-04-20 | Outpatient (CLI) | payer MEDICARE, BC, SELFPAY ==
[2024-04-20 16:30] LABS: Basophils # (Auto) 0.1 Thou/mm3 (0.0-0.2); Basophils % (Auto) 1 % (0-2.5); Eosinophils # (Auto) 0.3 Thou/mm3 (0.0-0.5); Eosinophils % (Auto) 3 % (0-10); Hematocrit 29.6 % (41.0-53.0); Hemoglobin 9.5 g/dL (13.5-16.0); Immature Granulocytes % (Auto) 1 % (0-0); Immature Granulocytes Auto 0.08 Thou/mm3 (0.00-0.00); Lymphocytes # (Auto) 1.3 Thou/mm3 (1.0-4.8); Lymphocytes % (Auto) 16 % (10-50); Mean Corpuscular HGB Conc 32.1 g/dl (31.0-37.0); Mean Corpuscular Hemoglobin 28.9 pg (25.0-35.0); Mean Corpuscular Volume 90 fL (80-100); Monocytes # (Auto) 0.7 Thou/mm3 (0.0-0.8); Monocytes % (Auto) 9 % (0-12); Neutrophils # (Auto) 5.6 Thou/mm3 (1.8-7.7); Neutrophils % (Auto) 70 % (37-80); Nucleated Red Blood Cell % 0 /100 WBC (0); Platelet Count 405 Thou/mm3 (140-440); RDW Standard Deviation 42.8 fL (35.1-43.9); Red Blood Count 3.29 Miln/mm3 (4.50-5.90)
[2024-04-20 16:42] LABS: Alanine Aminotransferase 18 U/L (10-49); Albumin, Serum 3.1 gm/dL (3.4-4.8); Albumin/Globulin Ratio 1.6 (1.2-2.2); Alkaline Phosphatase 75 U/L (46-116); Anion Gap 8 (7-16); Aspartate Amino Transferase 18 U/L (0-34); BUN/Creatinine Ratio 19 Ratio (12-20); Bilirubin,Total 0.2 mg/dL (0.3-1.2); Blood Urea Nitrogen 39 mg/dL (9-23); Calcium 8.2 mg/dL (8.3-10.6); Calcium (Corrected) 8.9 mg/dL (8.5-10.1); Carbon Dioxide 25.8 mMol/L (20.0-31.0); Chloride 101 mMol/L (98-107); Creatinine (Component) 2.1 mg/dL (0.6-1.3); Globulin 1.9 gm/dL (2.3-3.5); Glucose 113 mg/dL (74-106); Osmolality,Calculated 280 (275-295); Potassium 4.7 mMol/L (3.4-5.1); Sodium 135 mMol/L (136-145); eGFR 30 See Note
[2024-04-20 16:56] LABS: Sed Rate (ESR) 53 mm/hr (0-20)
== END | disposition home or self-care (01) ==
LOC: SLDO 14:55
PROVIDERS: PCP Internal Medicine; Referring Provider Internal Medicine; Visit Provider Internal Medicine
DX: Z01.89 Encounter for other specified special examinations (principal)
CPT/HCPCS: 36415; 80053; 85025; 85652

== ENCOUNTER → 2024-04-24 | Outpatient (CLI) | payer MEDICARE, BC, SELFPAY ==
[2024-04-24 15:35] LABS: Synovial Fluid, Crystals* See Sep Rpt
[2024-04-24 18:38] LABS: Source,Synovial Fluid Knee
[2024-04-24 18:39] LABS: Synovial Fluid Appearance Cloudy; Synovial Fluid Color Yellow
[2024-04-24 18:40] LABS: Synovial Fluid Mononuclear 3 %; Synovial Fluid Polynuclear 97 %; Synovial Fluid RBC 20000 /cmm; Synovial Fluid WBC 48490 /cmm
== END | disposition home or self-care (01) ==
LOC: SLDO 15:03
PROVIDERS: Referring Provider Orthopaedic Surgery; Visit Provider Orthopaedic Surgery
DX: T84.54XA Infection and inflammatory reaction due to internal left knee prosthesis, initial encounter (principal)
CPT/HCPCS: 82945; 87070; 87075; 87205; 89051

== ENCOUNTER → 2024-04-28 | Outpatient (CLI) | payer MEDICARE, BC, SELFPAY ==
[2024-04-28 13:07] LABS: Basophils # (Auto) 0.1 Thou/mm3 (0.0-0.2); Basophils % (Auto) 1 % (0-2.5); Eosinophils # (Auto) 0.3 Thou/mm3 (0.0-0.5); Eosinophils % (Auto) 3 % (0-10); Hematocrit 33.5 % (41.0-53.0); Hemoglobin 10.8 g/dL (13.5-16.0); Immature Granulocytes % (Auto) 1 % (0-0); Immature Granulocytes Auto 0.04 Thou/mm3 (0.00-0.00); Lymphocytes # (Auto) 1.9 Thou/mm3 (1.0-4.8); Lymphocytes % (Auto) 23 % (10-50); Mean Corpuscular HGB Conc 32.2 g/dl (31.0-37.0); Mean Corpuscular Volume 90 fL (80-100); Monocytes # (Auto) 0.7 Thou/mm3 (0.0-0.8); Monocytes % (Auto) 8 % (0-12); Neutrophils # (Auto) 5.1 Thou/mm3 (1.8-7.7); Neutrophils % (Auto) 64 % (37-80); Nucleated Red Blood Cell % 0 /100 WBC (0); Platelet Count 466 Thou/mm3 (140-440); RDW Standard Deviation 43.2 fL (35.1-43.9); Red Blood Count 3.73 Miln/mm3 (4.50-5.90)
[2024-04-28 13:14] LABS: Alanine Aminotransferase 39 U/L (10-49); Albumin, Serum 3.6 gm/dL (3.4-4.8); Albumin/Globulin Ratio 1.6 (1.2-2.2); Alkaline Phosphatase 102 U/L (46-116); Anion Gap 12 (7-16); Aspartate Amino Transferase 32 U/L (0-34); BUN/Creatinine Ratio 17 Ratio (12-20); Bilirubin,Total 0.3 mg/dL (0.3-1.2); Blood Urea Nitrogen 40 mg/dL (9-23); Calcium 9.2 mg/dL (8.3-10.6); Calcium (Corrected) 9.5 mg/dL (8.5-10.1); Carbon Dioxide 27.1 mMol/L (20.0-31.0); Chloride 99 mMol/L (98-107); Creatinine (Component) 2.3 mg/dL (0.6-1.3); Globulin 2.3 gm/dL (2.3-3.5); Glucose 125 mg/dL (74-106); Osmolality,Calculated 286 (275-295); Potassium 4.9 mMol/L (3.4-5.1); Sodium 138 mMol/L (136-145); Total Protein 5.9 gm/dL (5.7-8.2); eGFR 27 See Note
[2024-04-28 13:54] LABS: Sed Rate (ESR) 84 mm/hr (0-20)
== END | disposition home or self-care (01) ==
PROVIDERS: PCP Internal Medicine; Referring Provider Internal Medicine; Visit Provider Internal Medicine
DX: Z01.89 Encounter for other specified special examinations (principal)
CPT/HCPCS: 36415; 80053; 85025; 85652

== ENCOUNTER → 2024-05-04 | Outpatient (CLI) | payer MEDICARE, BC, SELFPAY ==
[2024-05-04 11:13] LABS: Synovial Fluid WBC 14080 /cmm
[2024-05-04 11:20] LABS: Synovial Fluid Appearance Cloudy; Synovial Fluid Color Red; Synovial Fluid Polynuclear 93 %; Synovial Fluid RBC 2500 /cmm
[2024-05-04 11:21] LABS: Synovial Fluid Mononuclear 7 %
[2024-05-04 11:23] LABS: Source,Synovial Fluid Knee
[2024-05-08 06:26] LABS: Glucose,Synovial Fluid* 110 mg/dL
== END | disposition home or self-care (01) ==
LOC: SLDO 10:36
PROVIDERS: Referring Provider Orthopaedic Surgery; Visit Provider Orthopaedic Surgery
DX: T84.54XA Infection and inflammatory reaction due to internal left knee prosthesis, initial encounter (principal)
CPT/HCPCS: 82945; 87076; 87205; 89051

== ENCOUNTER → 2024-05-05 | Outpatient (CLI) | payer MEDICARE, BC, SELFPAY ==
[2024-05-05 12:46] LABS: Basophils # (Auto) 0.1 Thou/mm3 (0.0-0.2); Basophils % (Auto) 1 % (0-2.5); Eosinophils # (Auto) 0.4 Thou/mm3 (0.0-0.5); Eosinophils % (Auto) 5 % (0-10); Hematocrit 32.1 % (41.0-53.0); Immature Granulocytes % (Auto) 0 % (0-0); Immature Granulocytes Auto 0.02 Thou/mm3 (0.00-0.00); Lymphocytes # (Auto) 1.6 Thou/mm3 (1.0-4.8); Lymphocytes % (Auto) 23 % (10-50); Mean Corpuscular HGB Conc 31.2 g/dl (31.0-37.0); Mean Corpuscular Hemoglobin 28.8 pg (25.0-35.0); Mean Corpuscular Volume 93 fL (80-100); Monocytes # (Auto) 0.6 Thou/mm3 (0.0-0.8); Monocytes % (Auto) 9 % (0-12); Neutrophils # (Auto) 4.2 Thou/mm3 (1.8-7.7); Neutrophils % (Auto) 61 % (37-80); Nucleated Red Blood Cell % 0 /100 WBC (0); Platelet Count 366 Thou/mm3 (140-440); RDW Standard Deviation 45.1 fL (35.1-43.9); Red Blood Count 3.47 Miln/mm3 (4.50-5.90); White Blood Count 6.8 Thou/mm3 (3.8-10.6)
[2024-05-05 12:58] LABS: Alanine Aminotransferase 30 U/L (10-49); Albumin, Serum 3.6 gm/dL (3.4-4.8); Albumin/Globulin Ratio 1.6 (1.2-2.2); Alkaline Phosphatase 100 U/L (46-116); Anion Gap 9 (7-16); Aspartate Amino Transferase 22 U/L (0-34); BUN/Creatinine Ratio 19 Ratio (12-20); Bilirubin,Total 0.4 mg/dL (0.3-1.2); Blood Urea Nitrogen 37 mg/dL (9-23); Calcium (Corrected) 9.3 mg/dL (8.5-10.1); Carbon Dioxide 26.7 mMol/L (20.0-31.0); Chloride 105 mMol/L (98-107); Globulin 2.3 gm/dL (2.3-3.5); Glucose 110 mg/dL (74-106); Osmolality,Calculated 290 (275-295); Potassium 4.7 mMol/L (3.4-5.1); Sodium 141 mMol/L (136-145); Total Protein 5.9 gm/dL (5.7-8.2); eGFR 32 See Note
[2024-05-05 13:00] LABS: Sed Rate (ESR) 43 mm/hr (0-20)
== END | disposition home or self-care (01) ==
PROVIDERS: PCP Internal Medicine; Referring Provider Internal Medicine; Visit Provider Internal Medicine
DX: Z01.89 Encounter for other specified special examinations (principal)
CPT/HCPCS: 36415; 80053; 85025; 85652

== ENCOUNTER 2024-05-08 07:48 | Outpatient (AMB) | payer MEDICARE, BC, SELFPAY ==
--- NOTE | 2024-05-08 08:03 | ORTHONT_ITS ---
Vital signs 05/08/24 08:04 Height 1.83 m Height Method Stated Weight 90.974 kg Weight Measurement Method Standing Scale BMI 27.1 BP 154/58 H Blood Pressure Source Automatic Cuff Blood Pressure Location Right Upper Arm Position Sitting Respiration 19 Pulse 66 Pulse Source Monitor Temp 97.4 F Temp Source Temporal Artery Scan Pulse Oximetry (%) 97 Oxygen Delivery Method Room Air Med/Allergies Allergies & Medications Allergies No Known Allergies Allergy (Verified 05/08/24 08:04) Medication Reconciliation tamsulosin 0.4 mg capsule 0.4 mg PO DAILY 08/11/17 [History Confirmed 05/08/24] apixaban 2.5 mg tablet (Eliquis) 2.5 mg PO BID #30 tabs 04/09/24 [Rx Confirmed 05/08/24] losartan 50 mg tablet 50 mg PO QDAY #30 tabs 04/09/24 [Rx Confirmed 05/08/24] tramadol 50 mg tablet 50 mg PO Q12H #14 tabs 04/14/24 [Rx Confirmed 05/08/24] ceftriaxone 2 gram solution for injection 2 g IM QDAY 05/08/24 [History Confirmed 05/08/24] heparin, porcine (PF) 10,000 unit/5 mL intravenous solution unit IV 05/08/24 [History Confirmed 05/08/24] nitroglycerin 0.4 mg sublingual tablet 0.4 mg sublingual Q5M PRN 05/08/24 [History Confirmed 05/08/24] sodium chloride 0.9 % (flush) ([place] 0.9% sodium chloride injection syringe) 5 ml IV Q6H 05/08/24 [History Confirmed 05/08/24] Exam Exam Patient is in no acute distress and is cooperative with the examination today. Patient has a normal mood and affect. Breathing is nonlabored. In no respiratory distress. Bilateral extremities were evaluated and demonstrates sensation intact to light touch. Palpable pedal pulses are present. No significant edema is present. Right knee incisions clean dry intact. Range of motion 0 to 110 degrees. The knee feels stable varus valgus stress as well as AP translation Left knee incision is clean dry and intact that is midline. She has a fresh lateral incision.There is some swelling of the knee. Range of motion is 0 to 100 degrees. 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 coli that occurred exactly 1 month ago. It sounds like an acute hematogenous infection. He underwent a washout through the lateral incision with no poly swap. I discussed with him that he has a very complex problem he has several options. We discussed that option 1 is continuing his anbtibiotics and seeing how his original I&D does , option 2 would be a formal DAIR with poly swap and antibitoics, option 3 would be two-stage exchange arthroplasty. Given that his symptoms started 1 month ago and that this was an acute hematogenous infection from his diverticulitis, I discussed that there is a reasonable option as he never really had a formal surgical debridement with poly swap. In addition, we discussed that the surgery with The highest infection eradication rate would be a two-stage exchange arthroplasty. He does not want to undergo this which is understandable as he is 84. He wants to watch his knee right now as he had recent surgery. He does not want it explanted if possible. I discussed with him that we can alternatively offer a poly swap and debridement and implant retention. He only has about 2 more weeks to decide on this likely. I will call his primary orthopedic surgeon to discuss what we talked about today. I discussed with him that he is make a decision soon as he may be out of the window for a day or if he waits any longer. He can continue antibiotics for now as we do have an organism identified Advanced Care Planning Discussion Advance care planning discussed with:: patient Office Procedures GNS Level of Care Nursing/Assessment Patient Status: Established Patient Nursing Assessment/Reassesment: Medication Reconciliation, Update PMH in EMR and Vital Signs Coordination of Care: Complex Care and Chronic Disease 1-5, Education Complex Pt/Fam, Consent,records obtained, informed consent, Results/Orders obtained and Staff clarify orders Established Patient Charge Established Patient Point Assignment: 95 Established Patient Point Charge: EP Level 3 (80-115) MA Intake Visit Data Collection New Patient or Established: Established Patient (seen at [facility] within 3 years) Reason for Visit:: FOLLOW UP Seen by Clinical Staff ONLY (RN/MA): No Verbal consent obtained for Telemed visit?: No Fish Egg Packer Required: No PCP or OBGYN visit in last 3 months: Yes Hx Now: No Do You Feel Safe at Home: Yes Authorities Contacted: N/A Questionairres Past Medical History Past Medical History Have you ever been diagnosed with any of the following: Neurological Problems Seizures: No Cardiology Problems Congestive Heart Failure: No Hypertension: Yes Respiratory Problems Chronic Obstructive Pulmonary Disease (COPD): No Stomache/Intestinal Problems Hepatitis: No Diverticulitis: Yes Diverticulosis: Yes Genital/Urinary Problems Renal Disease: No Benign Prostatic Hyperplasia: Yes Reproductive Problems Fibroids: No Head,Eye,Nose,Throat Problems Deafness: Yes Endocrine Problems Diabetes Mellitus Type 1: No Diabetes Mellitus Type 2: No Other Problems Hospitalization: Yes (2017) Down Syndrome: No Developmental Delay: No Shingles: No Falls: No Blood Transfusions: No Blood Transfusion Reaction: No Anesthesia Reactions: No Organ Transplant: No Chemotherapy: No Radiation Therapy: No Hyperbaric Therapy: No MRSA: No VRSA: No Vancomycin-Resistant Enterococci: No Human Immunodeficiency Virus (HIV): No Chicken Pox: No Measles: No Mumps: No Rubella (Thai Measles): No Pertussis: No Clostridium Difficile: No Cancer: No Subjective Visit Visit for: new patient and knee Immunization / Flu Flu Vaccine in the Last 12 Months: No Flu Vaccine Exclusion Criteria: Refused by Patient History of Present Illness Chief complaint: FOLLOW UP Patient is an 84-year-old male with a periprosthetic joint infection of his left knee. Symptoms started 4 weeks ago. He underwent irrigation and debridement through a lateral's incision. They did not do a poly swap. He has been on antibiotics since the surgery. There is still some swelling of the left knee and he had 2 aspirations recently to reduce the fluid. The patient reports that he does not want additional surgery if possible. Knee replacement approximately 8 to 9 years ago in either [place] or a another city. Developed symptoms around April 07, 2024. He underwent an irrigation debridement with a separate lateral incision subsequently 2 days later and has been on IV antibiotics with the PICC. Cultures grew out E. coli. He has no constitutional symptoms or any fever currently Personal History Occupation: RETIRED Red flag PMH: BMI and none BMI Counceling provided: Yes Pain Pain level (0-10): 0 Associated signs & symptoms: none Ambulatory data Ambulatory device: none Treatments Improvement with previous injections: No Improvement with PT: No Improvement with NSAIDS: no Review of Systems Review of Systems: All systems negative unless otherwise noted in HPI.
[2024-05-08 08:04] VITALS: BP 154/58; PULSE 66; RESP 19; TEMP 36.3; O2SAT 97; BMI 27.1
== END 2024-05-08 08:33 | disposition home or self-care (01) ==
LOC: HODSRG 07:48
PROVIDERS: PCP Internal Medicine; Referring Provider Internal Medicine; Supervising Provider Orthopaedic Surgery Adult Reconstructive Orthopaedic Surgery; Visit Provider Orthopaedic Surgery Adult Reconstructive Orthopaedic Surgery
DX: T84.54XD Infection and inflammatory reaction due to internal left knee prosthesis, subsequent encounter (principal); B96.20 Unspecified Escherichia coli [E. coli] as the cause of diseases classified elsewhere; Y84.9 Medical procedure, unspecified as the cause of abnormal reaction of the patient, or of later complication, without mention of misadventure at the time of the procedure; I10 Essential (primary) hypertension
CPT/HCPCS: 99213; G0463

== ENCOUNTER → 2024-05-11 | Outpatient (CLI) | payer MEDICARE, BC, SELFPAY ==
[2024-05-11 11:23] LABS: Basophils # (Auto) 0.1 Thou/mm3 (0.0-0.2); Basophils % (Auto) 1 % (0-2.5); Eosinophils # (Auto) 0.4 Thou/mm3 (0.0-0.5); Eosinophils % (Auto) 5 % (0-10); Hematocrit 32.4 % (41.0-53.0); Hemoglobin 10.4 g/dL (13.5-16.0); Immature Granulocytes % (Auto) 0 % (0-0); Immature Granulocytes Auto 0.02 Thou/mm3 (0.00-0.00); Lymphocytes # (Auto) 1.3 Thou/mm3 (1.0-4.8); Lymphocytes % (Auto) 20 % (10-50); Mean Corpuscular HGB Conc 32.1 g/dl (31.0-37.0); Mean Corpuscular Hemoglobin 28.9 pg (25.0-35.0); Mean Corpuscular Volume 90 fL (80-100); Monocytes # (Auto) 0.5 Thou/mm3 (0.0-0.8); Monocytes % (Auto) 8 % (0-12); Neutrophils # (Auto) 4.4 Thou/mm3 (1.8-7.7); Neutrophils % (Auto) 66 % (37-80); Nucleated Red Blood Cell % 0 /100 WBC (0); Platelet Count 300 Thou/mm3 (140-440); RDW Standard Deviation 45.8 fL (35.1-43.9); White Blood Count 6.6 Thou/mm3 (3.8-10.6)
[2024-05-11 11:35] LABS: Alanine Aminotransferase 23 U/L (10-49); Albumin, Serum 3.8 gm/dL (3.4-4.8); Albumin/Globulin Ratio 1.7 (1.2-2.2); Alkaline Phosphatase 96 U/L (46-116); Anion Gap 10 (7-16); Aspartate Amino Transferase 19 U/L (0-34); BUN/Creatinine Ratio 16 Ratio (12-20); Bilirubin,Total 0.4 mg/dL (0.3-1.2); Blood Urea Nitrogen 34 mg/dL (9-23); Calcium (Corrected) 9.2 mg/dL (8.5-10.1); Carbon Dioxide 25.8 mMol/L (20.0-31.0); Chloride 104 mMol/L (98-107); Creatinine (Component) 2.1 mg/dL (0.6-1.3); Globulin 2.2 gm/dL (2.3-3.5); Glucose 168 mg/dL (74-106); Osmolality,Calculated 291 (275-295); Potassium 4.6 mMol/L (3.4-5.1); Sodium 140 mMol/L (136-145); eGFR 30 See Note
[2024-05-11 11:41] LABS: Sed Rate (ESR) 34 mm/hr (0-20)
== END | disposition home or self-care (01) ==
LOC: SLDO 10:24
PROVIDERS: Referring Provider Internal Medicine; Visit Provider Internal Medicine
DX: Z01.89 Encounter for other specified special examinations (principal)
CPT/HCPCS: 36415; 80053; 85025; 85652

== ENCOUNTER → 2024-05-18 | Outpatient (CLI) | payer MEDICARE, BC, SELFPAY ==
[2024-05-18 11:28] LABS: Basophils # (Auto) 0.1 Thou/mm3 (0.0-0.2); Basophils % (Auto) 1 % (0-2.5); Eosinophils # (Auto) 0.2 Thou/mm3 (0.0-0.5); Eosinophils % (Auto) 4 % (0-10); Hematocrit 30.7 % (41.0-53.0); Hemoglobin 9.8 g/dL (13.5-16.0); Immature Granulocytes % (Auto) 0 % (0-0); Immature Granulocytes Auto 0.02 Thou/mm3 (0.00-0.00); Lymphocytes # (Auto) 1.1 Thou/mm3 (1.0-4.8); Lymphocytes % (Auto) 20 % (10-50); Mean Corpuscular HGB Conc 31.9 g/dl (31.0-37.0); Mean Corpuscular Volume 91 fL (80-100); Monocytes # (Auto) 0.5 Thou/mm3 (0.0-0.8); Monocytes % (Auto) 8 % (0-12); Neutrophils # (Auto) 3.8 Thou/mm3 (1.8-7.7); Neutrophils % (Auto) 67 % (37-80); Nucleated Red Blood Cell % 0 /100 WBC (0); Platelet Count 229 Thou/mm3 (140-440); Red Blood Count 3.38 Miln/mm3 (4.50-5.90); White Blood Count 5.7 Thou/mm3 (3.8-10.6)
[2024-05-18 11:42] LABS: Sed Rate (ESR) 17 mm/hr (0-20)
[2024-05-18 12:02] LABS: Alanine Aminotransferase 18 U/L (10-49); Albumin, Serum 3.5 gm/dL (3.4-4.8); Albumin/Globulin Ratio 1.6 (1.2-2.2); Alkaline Phosphatase 80 U/L (46-116); Anion Gap 7 (7-16); Aspartate Amino Transferase 18 U/L (0-34); BUN/Creatinine Ratio 19 Ratio (12-20); Bilirubin,Total 0.3 mg/dL (0.3-1.2); Blood Urea Nitrogen 41 mg/dL (9-23); Calcium 8.9 mg/dL (8.3-10.6); Calcium (Corrected) 9.3 mg/dL (8.5-10.1); Carbon Dioxide 25.9 mMol/L (20.0-31.0); Chloride 106 mMol/L (98-107); Creatinine (Component) 2.2 mg/dL (0.6-1.3); Globulin 2.2 gm/dL (2.3-3.5); Glucose 189 mg/dL (74-106); Osmolality,Calculated 292 (275-295); Potassium 4.3 mMol/L (3.4-5.1); Sodium 139 mMol/L (136-145); Total Protein 5.7 gm/dL (5.7-8.2); eGFR 28 See Note
== END | disposition home or self-care (01) ==
PROVIDERS: Referring Provider Internal Medicine; Visit Provider Internal Medicine
DX: Z01.89 Encounter for other specified special examinations (principal)
CPT/HCPCS: 36415; 80053; 85025; 85652

== ENCOUNTER 2024-05-21 13:43 | Outpatient (AMB) | payer MEDICARE, BC, SELFPAY ==
--- NOTE | 2024-05-21 13:52 | PD.ORTHCLVIS ---
Vital signs 05/21/24 13:53 Height 1.83 m Height Method Stated Weight 94.461 kg Weight Measurement Method Standing Scale BMI 28.2 BP 197/88 H Blood Pressure Source Automatic Cuff Blood Pressure Location Left Upper Arm Position Sitting Respiration 18 Pulse 68 Pulse Source Monitor Temp 97.8 F Temp Source Temporal Artery Scan Pulse Oximetry (%) 95 Oxygen Delivery Method Room Air Med/Allergies Allergies & Medications Allergies No Known Allergies Allergy (Verified 05/21/24 13:55) Medication Reconciliation tamsulosin 0.4 mg capsule 0.4 mg PO DAILY 08/11/17 [History Confirmed 05/21/24] apixaban 2.5 mg tablet (Eliquis) 2.5 mg PO BID #30 tabs 04/09/24 [Rx Confirmed 05/21/24] losartan 50 mg tablet 50 mg PO QDAY #30 tabs 04/09/24 [Rx Confirmed 05/21/24] nitroglycerin 0.4 mg sublingual tablet 0.4 mg sublingual Q5M PRN chest pain 05/08/24 [History Confirmed 05/21/24] calcium carb-ergocalciferol (vit D2) 600 mg calcium-200 unit tablet 1 tab PO BID 05/21/24 [History Confirmed 05/21/24] [id number]-rix C-Mn 500 mg-400 mg capsule 1 cap PO TID 05/21/24 [History Confirmed 05/21/24] Assessment and Plan Advanced Care Planning Discussion Advance care planning discussed with:: patient Office Procedures GNS Level of Care Nursing/Assessment Patient Status: Established Patient Nursing Assessment/Reassesment: Medication Reconciliation, Update PMH in EMR and Vital Signs Coordination of Care: Complex Care and Chronic Disease 1-5, Education Complex Pt/Fam, Consent,records obtained, informed consent, Results/Orders obtained and Staff clarify orders Established Patient Charge Established Patient Point Assignment: 95 Established Patient Point Charge: EP Level 3 (80-115) MA Intake Visit Data Collection New Patient or Established: Established Patient (seen at [facility] within 3 years) Reason for Visit:: FOLLOW UP Seen by Clinical Staff ONLY (RN/MA): No PCP or OBGYN visit in last 3 months: Yes Hx Now: No Do You Feel Safe at Home: Yes Authorities Contacted: N/A Questionairres Past Medical History Past Medical History Have you ever been diagnosed with any of the following: Neurological Problems Seizures: No Cardiology Problems Congestive Heart Failure: No Hypertension: Yes Respiratory Problems Chronic Obstructive Pulmonary Disease (COPD): No Smoking: No Smoking Exposure: No Stomache/Intestinal Problems Hepatitis: No Diverticulitis: Yes Diverticulosis: Yes Genital/Urinary Problems Renal Disease: Yes Benign Prostatic Hyperplasia: Yes Reproductive Problems Fibroids: No Musculoskeletal Problems Arthritis: Yes Head,Eye,Nose,Throat Problems Cataracts: Yes (had surgery) Deafness: Yes ([facility]) Endocrine Problems Diabetes Mellitus Type 1: No Diabetes Mellitus Type 2: No Other Problems Hospitalization: Yes (2017) Down Syndrome: No Developmental Delay: No Shingles: No Falls: No Blood Transfusions: No Blood Transfusion Reaction: No Anesthesia Reactions: No Organ Transplant: No Chemotherapy: No Radiation Therapy: No Hyperbaric Therapy: No MRSA: No VRSA: No Vancomycin-Resistant Enterococci: No Human Immunodeficiency Virus (HIV): No Chicken Pox: Yes Measles: No Mumps: No Rubella (Malagasy Measles): No Pertussis: No Clostridium Difficile: No Cancer: No Subjective Visit Visit for: follow up visit and knee Immunization / Flu Flu Vaccine in the Last 12 Months: No Flu Vaccine Exclusion Criteria: No Exclusion Criteria Pain Pain level (0-10): 7 Pain duration: CONSTANT Pain location: anterior Pain quality: dull and aching Pain timing: increases with activity Ambulatory data Ambulatory device: none Treatments Improvement with previous injections: No Improvement with PT: No Improvement with NSAIDS: no Review of Systems Review of Systems: All systems negative unless otherwise noted in HPI.
[2024-05-21 13:53] VITALS: BP 197/88; PULSE 68; RESP 18; TEMP 36.6; O2SAT 95; BMI 28.2
== END 2024-05-21 14:00 | disposition home or self-care (01) ==
LOC: HODSRG 13:43
PROVIDERS: Family Provider Internal Medicine; PCP Internal Medicine; Referring Provider Internal Medicine; Supervising Provider Orthopaedic Surgery Adult Reconstructive Orthopaedic Surgery; Visit Provider Orthopaedic Surgery Adult Reconstructive Orthopaedic Surgery
DX: Z09 Encounter for follow-up examination after completed treatment for conditions other than malignant neoplasm (principal); I10 Essential (primary) hypertension
CPT/HCPCS: 99213; G0463

== ENCOUNTER 2024-05-25 09:55 | Day surgery (SDC) | payer MEDICARE, BC, SELFPAY ==
--- NOTE | 2024-05-21 07:31 | EKG_ITS ---
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
[2024-05-21 07:32] VITALS: BMI 28.3
[2024-05-21 09:33] LABS: Basophils # (Auto) 0.1 Thou/mm3 (0.0-0.2); Basophils % (Auto) 1 % (0-2.5); Eosinophils # (Auto) 0.3 Thou/mm3 (0.0-0.5); Eosinophils % (Auto) 4 % (0-10); Hematocrit 32.3 % (41.0-53.0); Hemoglobin 10.6 g/dL (13.5-16.0); Immature Granulocytes % (Auto) 0 % (0-0); Immature Granulocytes Auto 0.02 Thou/mm3 (0.00-0.00); Lymphocytes # (Auto) 1.5 Thou/mm3 (1.0-4.8); Lymphocytes % (Auto) 23 % (10-50); Mean Corpuscular HGB Conc 32.8 g/dl (31.0-37.0); Mean Corpuscular Hemoglobin 29.5 pg (25.0-35.0); Mean Corpuscular Volume 90 fL (80-100); Monocytes # (Auto) 0.6 Thou/mm3 (0.0-0.8); Monocytes % (Auto) 9 % (0-12); Neutrophils # (Auto) 4.1 Thou/mm3 (1.8-7.7); Neutrophils % (Auto) 63 % (37-80); Nucleated Red Blood Cell % 0 /100 WBC (0); Platelet Count 240 Thou/mm3 (140-440); RDW Standard Deviation 46.8 fL (35.1-43.9); Red Blood Count 3.59 Miln/mm3 (4.50-5.90); White Blood Count 6.5 Thou/mm3 (3.8-10.6)
[2024-05-21 09:43] LABS: Partial Thromboplastin Time 26.5 Seconds (22.0-36.0); Prothrombin Time 11.4 Seconds (9.0-12.2)
[2024-05-21 09:47] LABS: Alanine Aminotransferase 21 U/L (10-49); Albumin, Serum 3.8 gm/dL (3.4-4.8); Albumin/Globulin Ratio 1.5 (1.2-2.2); Alkaline Phosphatase 80 U/L (46-116); Anion Gap 12 (7-16); Aspartate Amino Transferase 20 U/L (0-34); BUN/Creatinine Ratio 19 Ratio (12-20); Bilirubin,Total 0.5 mg/dL (0.3-1.2); Blood Urea Nitrogen 43 mg/dL (9-23); Calcium 9.6 mg/dL (8.3-10.6); Calcium (Corrected) 9.8 mg/dL (8.5-10.1); Carbon Dioxide 22.5 mMol/L (20.0-31.0); Chloride 107 mMol/L (98-107); Creatinine (Component) 2.3 mg/dL (0.6-1.3); Estimated Creatinine Clearance 27.5 mL/min (>60); Globulin 2.6 gm/dL (2.3-3.5); Glucose 164 mg/dL (74-106); Osmolality,Calculated 296 (275-295); Potassium 4.4 mMol/L (3.4-5.1); Sodium 141 mMol/L (136-145); Total Protein 6.4 gm/dL (5.7-8.2); eGFR 27 See Note
--- NOTE | 2024-05-22 14:17 | SUR.PREOP ---
Cardiac history and records reviewed with Dr Huerta.
[2024-05-25] VITALS (18 sets, daily range): BP systolic 156–188; BP diastolic 67–88; PULSE 54–78; RESP 12–20; TEMP 36–36.7; O2SAT 95–100; BMI 27.3; BMI 29.9
[2024-05-25] MEDS: SODIUM CHLORIDE 0.9% 500 ML 500 ML 20 ML IV (11:22)
[2024-05-25] MEDS: ACETAMINOPHEN 325 MG TABLET 650 MG PO (11:23)
[2024-05-25] MEDS: MELOXICAM 7.5 MG TABLET PO (11:24)
[2024-05-25] MEDS: PREGABALIN 75 MG CAPSULE PO (11:24)
--- NOTE | 2024-05-25 14:52 | PD.SUROPNT ---
Date of Procedure 05/25/24 Pre Op Diagnosis left knee acute hematogenous periprosthetic joint infection Post Op Diagnosis left knee acute hematogenous periprosthetic joint infection Procedure left knee irrigation and debridement with poly exchange and drug delivery device Findings purulent fluid Procedure Description Indications: Patient is a 84yo male with an acute periprosthetic joint infection 6 weeks ago likley secondary to diverticulitis. He underwent I&D and was placed on ceftriaxone. He had repeat aspirations with high cell count. We discussed spacer placement vs repeat I&D since no modular parts were exchanged. We discussed that this has a high rate of infection recurrence and that there may be wound healing issues as the prior surgeon made a separate lateral incision recently. The patient understands and would like to proceed with surgery. The patient also reports that he wants to go home after the surgery and understands that he will likely need an infectious disease consult outpatient. Procedure in detail: The patient was brought to the operating room and a surgical timeout was performed. The patient was prepped and draped in usual sterile fashion. A midline incision was used. Prior to the arthrotomy, we used a 18-gauge needle to aspirate 20 cc of fluid. We sent this for Synovasure as well as culture and cell count. We then performed a thorough synovectomy and remove the existing poly. We confirmed that this was a [employer] size 6, 12 mm poly. We then debrided all devitalized tissue. We irrigated the joint with 6 L of saline, chlorhexidine, peroxide, and dilute Betadine sequentially with normal saline in between. Once irrigation was performed we then redraped the patient and inserted a new liner of the same size. We then inserted 10 cc of stimulant beads with 1 g of Rocephin inside. This was fashioned by 2 cc of saline, 1000 mg of ceftriaxone, stimulan, and 6 cc of sterile water. The knee was found to be stable to varus and valgus plane as well as with AP translation. I discussed the plan of discharge with the patient. Ideally I would like for him to stay in house for final culture results. The patient is very adamant that he wants to go home. I discussed that I guess this is somewhat reasonable as he already was treated with the PICC and was on oral antibiotics. I discussed if he were to do this, that he should go see a infectious disease doctor. I will put him on Keflex as he is sensitive to cephalosporins based on the prior culture results which demonstrated E. coli. The patient understands that he is at high risk for recurrence. At this point in time, he does not want a spacer placement and wants to go home and understands the risks of going home without IV antibiotics. We will thus place him on oral antibiotics. He can be weightbearing as tolerated. Anesthesia GETA Implants size 6 12mm PS poly parekh nephew Pathology / specimen None Pathology comment: none Estimated Blood Loss 70 Condition Stable Disposition same day Surgeon Merrill Zarate MD Surgical Staff Operation Date: 05/25/24 15:00 <No data on this case meets the specified criteria>
--- NOTE | 2024-05-25 14:53 | SUR.PHASEI ---
1455 Patient arrived to recovery [facility], sleeping and able to arouse with verbal prompting then drifts back to sleep, on oxygen 8L via oxy mask, breathing unlabored, vital signs stable, dressing intact to left knee; Prevena incision vac, no bleeding noted, no fluid noted in vac, lung sounds clear upon auscultation, bilateral dorsalis pedis pulses present when palpated, patient has good circulation to left lower extremity; skin color normal for patient and warm to touch, report received from Marylu GALLAGHER and Dr. Huerta
--- NOTE | 2024-05-25 15:43 | SUR.PHASEI ---
1088 Telephone order read-back received from Dr. Zarate-JENNA left knee 2view and physical therapy consult with weight bearing will place order in EMR
--- NOTE | 2024-05-25 15:43 | XR_ITS ---
Examination: Left knee 2 views Technique one AP lateral left knee 2 views INDICATIONS: Postop knee replacement FINDINGS: Numerous rounded opacities in the soft tissue about the knee Total left knee arthroplasty. Satisfactory alignment No fracture IMPRESSION: Total left knee arthroplasty with satisfactory alignment
[2024-05-25] MEDS: ONDANSETRON INJ 2 MG/ML INJ 2 ML 4 MG IV (16:27)
--- NOTE | 2024-05-25 16:40 | SUR.PHASEII ---
pt awake, alert, able to follow commands, breathing unlabored, prevena wound vac in place to left knee, pt denies pain, VS stable, report from Bella Fountain RN
--- NOTE | 2024-05-25 16:40 | SUR.PHASEII ---
1640 Report given to Bella Brown RN
--- NOTE | 2024-05-25 16:57 | SUR.PHASEII ---
3248 Verbal order read-back received from Dr. Huerta for Reglan 10mg IVP, for nausea as patient continues to be nausea, will place order in EMR and administer to patient per MD order
[2024-05-25] MEDS: METOCLOPRAMIDE INJ 5 MG/ML VIAL 2 ML 10 MG IVP (17:12)
--- NOTE | 2024-05-25 17:57 | PC.PT ---
PT eval attempted at 1600. But patient has nausea. Will try again later.
--- NOTE | 2024-05-25 18:01 | PD.ANESPROG ---
Documentation for date of: 05/25/24 ANESTHESIA NOTE: Patient had GETA and L adductor canal block for L knee poly exchange/InD earlier today. He reported he last took his Eliquis 3 days ago. He did well intra-op and has been in PACU post op doing well, VSS, post op pain controlled. He has h/o HTN and his BP was elevated pre-op and post op in PACU which I treated with IV Hydralazine and it improved. Jacoby Huerta MD Anesthesia Progress Note Progress Note Most recent Vital Signs: Last Vital Signs Temp 98.0 F 05/25/24 16:23 Pulse 63 05/25/24 16:38 Resp 20 05/25/24 16:38 BP 176/80 H 05/25/24 16:38 Pulse Ox 95 05/25/24 16:38 O2 Flow Rate 3 05/25/24 15:53
--- NOTE | 2024-05-25 19:45 | SUR.PHASEII ---
pt awake, alert, able to follow commands, breathing unlabored, left knee with prevena vac in place, circulation to bilateral toes within normal limits, pt denies pain, VS stable, report called to Michael TAN, pt transferred to room at this time.
[2024-05-25] MEDS: ceFAZolin/D5W 1 GM IVPB 1 GM/50 ML BAG IV (22:36)
[2024-05-26] VITALS (7 sets, daily range): BP systolic 136–174; BP diastolic 68–97; PULSE 69–79; RESP 16–96; TEMP 36.1–36.7; O2SAT 96–99
--- NOTE | 2024-05-26 06:24 | PC.NURSE ---
Dr. Zarate notified of low urine output since surgery of only 75ml and bladder scan of 607ml of urine. ordered to straight cath patient.
--- NOTE | 2024-05-26 06:45 | PC.NURSE ---
Patient straight cathed two times and was unsuccessful. We are at shift change and this RN will let the oncoming nurse know to see if they want to try before letting the MD know. This RN told patient that we will take a break and for him to try and urinate in the urinal. Patient states that he is not uncomfortable at this time.
[2024-05-26] MEDS: LOSARTAN POTASSIUM 25 MG TABLET 50 MG PO (09:05)
[2024-05-26] MEDS: TAMSULOSIN HCL 0.4 MG CAPSULE PO (09:06)
[2024-05-26] MEDS: ceFAZolin/D5W 1 GM IVPB 1 GM/50 ML BAG IV (09:07)
[2024-05-26] MEDS: APIXABAN 2.5 MG TABLET PO (09:11)
[2024-05-26] MEDS: oxyCODONE HCL 5 MG IR TAB 10 MG PO (09:11)
--- NOTE | 2024-05-26 12:14 | PC.NURSE ---
Per MD Zarate pt is clear to dc today after physical therapy and follow up in 1 wk at his office.
--- NOTE | 2024-05-26 12:45 | PC.NURSE ---
Notified Dr Zarate about pts current bp last one at 1200 at 166/61-69. Per ok to dc pt with current bp. No new med orders given at this time.
--- NOTE | 2024-05-26 13:05 | PC.NURSE ---
Additional Dc info/Dr Weller orders for post op surgery reviewed and given to pt.
--- NOTE | 2024-05-26 14:39 | PC.SS ---
SS met with patient at bedside to complete initial assessment. Patient confirmed demographic information on facesheet. Patient confirmed his spouse Marybeth Hernandez [phone] as his medical surrogate decision maker. Patient explained he is independent with ambulation and ADL completion as well. PCP: Dr. Josh Lainez. Patient reports he also has a bread wrapper in [place] but is unable to provide name. Pharmcacy: [facility]. Next of kin: Spouse Marybeth Hernandez [phone] Discharge plan: Home, Spouse Marybeth to transport her.
== END 2024-05-26 13:32 | disposition home or self-care (01) ==
LOC: S2EX 15:27 → S3SX 20:14
PROVIDERS: Anesthesiology; PCP Internal Medicine; Referring Provider Orthopaedic Surgery Adult Reconstructive Orthopaedic Surgery; Visit Provider Orthopaedic Surgery Adult Reconstructive Orthopaedic Surgery
PROC: (CPT 27486; principal; 2024-05-25 15:00)
DX: T84.54XA Infection and inflammatory reaction due to internal left knee prosthesis, initial encounter (principal); Z01.810 Encounter for preprocedural cardiovascular examination; I10 Essential (primary) hypertension; K57.30 Diverticulosis of large intestine without perforation or abscess without bleeding; N40.0 Benign prostatic hyperplasia without lower urinary tract symptoms; Z86.19 Personal history of other infectious and parasitic diseases
CPT/HCPCS: 27486; 36415; 73560; 80053; 85025; 85610; 85730; 87070; 87081; 87205; 93005; 97162; A4217; A4649; A9272; C1713; C1776; J0360; J0689; J0690; J0696; J1100; J1171; J2250; J2371; J2405; J2704; J2765; J2795; J3010; J3490; J7040; A9270; J1596; J1805

== ENCOUNTER 2024-05-29 10:04 | Outpatient (AMB) | payer MEDICARE, BC, SELFPAY ==
--- NOTE | 2024-05-29 10:09 | PD.ORTHCLVIS ---
Vital signs 05/29/24 10:10 Height 1.83 m Height Method Stated Weight 94 kg Weight Measurement Method Estimated by Patient BMI 28.0 Med/Allergies Allergies & Medications Allergies No Known Allergies Allergy (Verified 06/09/24 08:50) Medication Reconciliation tamsulosin 0.4 mg capsule 0.4 mg PO DAILY 08/11/17 [History Confirmed 06/09/24] apixaban 2.5 mg tablet (Eliquis) 2.5 mg PO BID #30 tabs 04/09/24 [Rx Confirmed 06/09/24] losartan 50 mg tablet 50 mg PO QDAY #30 tabs 04/09/24 [Rx Confirmed 06/09/24] nitroglycerin 0.4 mg sublingual tablet 0.4 mg sublingual Q5M PRN chest pain 05/08/24 [History Confirmed 06/09/24] calcium carb-ergocalciferol (vit D2) 600 mg calcium-200 unit tablet 1 tab PO BID 05/21/24 [History Confirmed 06/09/24] rwemmxqdofl-fisdmsafb-fyl C-Mn 500 mg-400 mg capsule 1 cap PO TID 05/21/24 [History Confirmed 06/09/24] acetaminophen 500 mg tablet (Acetaminophen Extra Strength) 1,000 mg (2 x 500 mg) PO Q6H PRN pain #90 tabs 05/25/24 [Rx Confirmed 06/09/24] cephalexin 500 mg capsule 500 mg PO Q12H #60 caps 05/25/24 [Rx Confirmed 06/09/24] gabapentin 300 mg capsule 300 mg PO .qhs #30 caps 05/25/24 [Rx Confirmed 06/09/24] oxycodone 5 mg tablet 5 mg PO Q6H PRN pain #28 tabs 05/25/24 [Rx Confirmed 06/09/24] sennosides 8.6 mg-docusate sodium 50 mg tablet (Senna-S) 1 tab-cap PO QDAY #30 tabs 05/25/24 [Rx Confirmed 06/09/24] Exam Exam Patient is in no acute distress and is cooperative with the examination today. Patient has a normal mood and affect. Breathing is nonlabored. In no respiratory distress. Bilateral extremities were evaluated and demonstrates sensation intact to light touch. Palpable pedal pulses are present. No significant edema is present. Right knee incisions clean dry intact. Range of motion 0 to 110 degrees. The knee feels stable varus valgus stress as well as AP translation Left knee incision is clean dry and intact that is midline. She has a fresh lateral incision.There is some swelling of the knee. Range of motion is 0 to 100 degrees. X-rays demonstrate a cemented total knee replacement in good alignment position Assessment and Plan Problem List (1) Septic joint of left knee joint: Status: Acute Plan: Patient is an 84-year-old male with left knee pain and left knee periprosthetic joint infection. It demonstrated cultures with E. coli. He underwent a irrigation debridement with poly exchange. He should see infectious disease outpatient. He reports that he is doing well. We discussed that we did place antibiotic beads and that there is a high recurrence rate of infection given that we did not do a Explantation. He understands this. He is doing reasonably well and wants to just removed all stitches Advanced Care Planning Discussion Advance care planning discussed with:: patient Office Procedures GNS Level of Care Nursing/Assessment Patient Status: Established Patient Nursing Assessment/Reassesment: Medication Reconciliation, Update PMH in EMR and Vital Signs Coordination of Care: Complex Care and Chronic Disease 1-5, Education Complex Pt/Fam, Consent,records obtained, informed consent, Results/Orders obtained and Staff clarify orders Established Patient Charge Established Patient Point Assignment: 95 Established Patient Point Charge: EP Level 3 (80-115) MA Intake Visit Data Collection New Patient or Established: Established Patient (seen at [facility] within 3 years) Reason for Visit:: F/U WOUND Seen by Clinical Staff ONLY (RN/MA): No Verbal consent obtained for Telemed visit?: No Stitch Marker Required: No PCP or OBGYN visit in last 3 months: Yes Hx Now: No Do You Feel Safe at Home: Yes Authorities Contacted: N/A Questionairres Past Medical History Past Medical History Have you ever been diagnosed with any of the following: Neurological Problems Seizures: No Cardiology Problems Congestive Heart Failure: No Hypertension: Yes Respiratory Problems Chronic Obstructive Pulmonary Disease (COPD): No Smoking: No Smoking Exposure: No Stomache/Intestinal Problems Hepatitis: No Diverticulitis: Yes Diverticulosis: Yes Genital/Urinary Problems Renal Disease: Yes Benign Prostatic Hyperplasia: Yes Reproductive Problems Fibroids: No Musculoskeletal Problems Arthritis: Yes Head,Eye,Nose,Throat Problems Cataracts: Yes (had surgery) Deafness: Yes ([facility]) Endocrine Problems Diabetes Mellitus Type 1: No Diabetes Mellitus Type 2: No Other Problems Hospitalization: Yes (2017) Down Syndrome: No Developmental Delay: No Shingles: No Falls: No Blood Transfusions: No Blood Transfusion Reaction: No Anesthesia Reactions: No Organ Transplant: No Chemotherapy: No Radiation Therapy: No Hyperbaric Therapy: No MRSA: No VRSA: No Vancomycin-Resistant Enterococci: No Human Immunodeficiency Virus (HIV): No Chicken Pox: Yes Measles: No Mumps: No Rubella ([place] Measles): No Pertussis: No Clostridium Difficile: No Cancer: No Subjective Visit Visit for: follow up visit and other (specify) Immunization / Flu Flu Vaccine in the Last 12 Months: Yes Flu Vaccine Exclusion Criteria: Already Received History of Present Illness Chief complaint: WOUND FOLLOW UP Patient is an 84-year-old male 2 weeks from a washout. We removed his stitches today. He is doing well. We discussed that he may have a persistent infection given that he had Delayed treatment. We recommend continued oral antibiotics Ambulatory data Ambulatory device: walker Treatments Improvement with previous injections: No Improvement with PT: No Improvement with NSAIDS: no Review of Systems Review of Systems: All systems negative unless otherwise noted in HPI.
[2024-05-29 10:10] VITALS: BMI 28.0
== END 2024-05-29 10:35 | disposition home or self-care (01) ==
LOC: HODSRG 10:04
PROVIDERS: PCP Internal Medicine; Referring Provider Internal Medicine; Supervising Provider Orthopaedic Surgery Adult Reconstructive Orthopaedic Surgery; Visit Provider Orthopaedic Surgery Adult Reconstructive Orthopaedic Surgery
DX: Z09 Encounter for follow-up examination after completed treatment for conditions other than malignant neoplasm (principal)
CPT/HCPCS: 99213; G0463

== ENCOUNTER 2024-06-09 08:25 | Outpatient (AMB) | payer MEDICARE, BC, SELFPAY ==
--- NOTE | 2024-05-21 13:58 | PD.ORTHCLVIS ---
Med/Allergies Allergies & Medications Allergies No Known Allergies Allergy (Verified 05/21/24 13:55) Exam Exam Patient is in no acute distress and is cooperative with the examination today. Patient has a normal mood and affect. Breathing is nonlabored. In no respiratory distress. Bilateral extremities were evaluated and demonstrates sensation intact to light touch. Palpable pedal pulses are present. No significant edema is present. Right knee incisions clean dry intact. Range of motion 0 to 110 degrees. The knee feels stable varus valgus stress as well as AP translation Left knee incision is clean dry and intact that is midline. She has a fresh lateral incision.There is some swelling of the knee. Range of motion is 0 to 100 degrees. X-rays demonstrate a cemented total knee replacement in good alignment position Assessment and Plan Problem List (1) Septic joint of left knee joint: Status: Acute Plan: Patient is an 84-year-old male with left knee pain and left knee periprosthetic joint infection. It demonstrated cultures with E. coli. I thus discussed with the patient that he has several options. We can explant him, continue with suppression, or do an I&D and poly exchange. I discussed that if we were to do an ideal exchange that it should be done within 6 weeks ideally in sooner would be better. He would like to get this done as soon as possible. Will plan for surgery on Saturday. I will get the parts as it looks to be a [employer] journey knee. I do not have the sizes yet. I will talk to Dr. Farris regarding an antibiotic plan afterwards. The patient very much wants to go home. The E. coli appears to be pansensitive including Keflex but we will consult with infectious disease. Advanced Care Planning Discussion Advance care planning discussed with:: patient Questionairres Past Medical History Past Medical History Have you ever been diagnosed with any of the following: Neurological Problems Seizures: No Cardiology Problems Congestive Heart Failure: No Hypertension: Yes Respiratory Problems Chronic Obstructive Pulmonary Disease (COPD): No Smoking: No Smoking Exposure: No Stomache/Intestinal Problems Hepatitis: No Diverticulitis: Yes Diverticulosis: Yes Genital/Urinary Problems Renal Disease: Yes Benign Prostatic Hyperplasia: Yes Reproductive Problems Fibroids: No Musculoskeletal Problems Arthritis: Yes Head,Eye,Nose,Throat Problems Cataracts: Yes (had surgery) Deafness: Yes ([facility]) Endocrine Problems Diabetes Mellitus Type 1: No Diabetes Mellitus Type 2: No Other Problems Hospitalization: Yes (2017) Down Syndrome: No Developmental Delay: No Shingles: No Falls: No Blood Transfusions: No Blood Transfusion Reaction: No Anesthesia Reactions: No Organ Transplant: No Chemotherapy: No Radiation Therapy: No Hyperbaric Therapy: No MRSA: No VRSA: No Vancomycin-Resistant Enterococci: No Human Immunodeficiency Virus (HIV): No Chicken Pox: Yes Measles: No Mumps: No Rubella ([place] Measles): No Pertussis: No Clostridium Difficile: No Cancer: No Subjective Immunization / Flu Flu Vaccine in the Last 12 Months: Yes Flu Vaccine Exclusion Criteria: Already Received History of Present Illness Chief complaint: Left knee periprosthetic joint infection Srini is a pleasant 84-year-old female with a 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 He has been aspirated several times in the office with Dr. Farris and was found to have an infection. His symptoms been ongoing for 5 weeks at this point. He was washed out in the hospital but it was through a superior lateral incision and no poly swap was done. Review of Systems Review of Systems: All systems negative unless otherwise noted in HPI.
[2024-06-09 08:49] VITALS: BP 178/51; PULSE 59; RESP 18; TEMP 36.6; O2SAT 97; BMI 27.5
--- NOTE | 2024-06-09 08:49 | ORTHONT_ITS ---
Vital signs 06/09/24 08:49 Height 1.83 m Height Method Stated Weight 92.164 kg Weight Measurement Method Standing Scale BMI 27.5 BP 178/51 H Blood Pressure Source Automatic Cuff Blood Pressure Location Right Upper Arm Position Sitting Respiration 18 Pulse 59 L Pulse Source Monitor Temp 97.8 F Temp Source Temporal Artery Scan Pulse Oximetry (%) 97 Oxygen Delivery Method Room Air Med/Allergies Allergies & Medications Allergies No Known Allergies Allergy (Verified 06/09/24 08:50) Medication Reconciliation tamsulosin 0.4 mg capsule 0.4 mg PO DAILY 08/11/17 [History Confirmed 06/09/24] apixaban 2.5 mg tablet (Eliquis) 2.5 mg PO BID #30 tabs 04/09/24 [Rx Confirmed 06/09/24] losartan 50 mg tablet 50 mg PO QDAY #30 tabs 04/09/24 [Rx Confirmed 06/09/24] nitroglycerin 0.4 mg sublingual tablet 0.4 mg sublingual Q5M PRN chest pain 05/08/24 [History Confirmed 06/09/24] calcium carb-ergocalciferol (vit D2) 600 mg calcium-200 unit tablet 1 tab PO BID 05/21/24 [History Confirmed 06/09/24] ohexlbojkwe-wgjtnsjvd-dxc C-Mn 500 mg-400 mg capsule 1 cap PO TID 05/21/24 [History Confirmed 06/09/24] acetaminophen 500 mg tablet (Acetaminophen Extra Strength) 1,000 mg (2 x 500 mg) PO Q6H PRN pain #90 tabs 05/25/24 [Rx Confirmed 06/09/24] cephalexin 500 mg capsule 500 mg PO Q12H #60 caps 05/25/24 [Rx Confirmed 06/09/24] gabapentin 300 mg capsule 300 mg PO .qhs #30 caps 05/25/24 [Rx Confirmed 06/09/24] oxycodone 5 mg tablet 5 mg PO Q6H PRN pain #28 tabs 05/25/24 [Rx Confirmed 06/09/24] sennosides 8.6 mg-docusate sodium 50 mg tablet (Senna-S) 1 tab-cap PO QDAY #30 tabs 05/25/24 [Rx Confirmed 06/09/24] Exam Exam Patient is in no acute distress and is cooperative with the examination today. Patient has a normal mood and affect. Breathing is nonlabored. In no respiratory distress. Bilateral extremities were evaluated and demonstrates sensation intact to light touch. Palpable pedal pulses are present. No significant edema is present. Right knee incisions clean dry intact. Range of motion 0 to 110 degrees. The knee feels stable varus valgus stress as well as AP translation Left knee incision is clean dry and intact that is midline. She has a fresh lateral incision.There is some swelling of the knee. Range of motion is 0 to 100 degrees. X-rays demonstrate a cemented total knee replacement in good alignment position Assessment and Plan Problem List (1) Septic joint of left knee joint: Status: Acute Plan: Patient is an 84-year-old male with left knee pain and left knee periprosthetic joint infection. It demonstrated cultures with E. coli. He underwent a irrigation debridement with poly exchange. He should see infectious disease outpatient. He reports that he is doing well. We discussed that we did place antibiotic beads and that there is a high recurrence rate of infection given that we did not do a Explantation. He understands this. He is doing reasonably well and wants to just removed all stitches Advanced Care Planning Discussion Advance care planning discussed with:: patient Office Procedures GNS Level of Care Nursing/Assessment Patient Status: Established Patient Nursing Assessment/Reassesment: Medication Reconciliation, Update PMH in EMR and Vital Signs Coordination of Care: Complex Care and Chronic Disease 1-5, Education Complex Pt/Fam, Consent,records obtained, informed consent, Results/Orders obtained and Staff clarify orders Established Patient Charge Established Patient Point Assignment: 95 Established Patient Point Charge: EP Level 3 (80-115) MA Intake Visit Data Collection New Patient or Established: Established Patient (seen at [facility] within 3 years) Reason for Visit:: F/U SEPTIC JOINT OF LEFT KNEE Seen by Clinical Staff ONLY (RN/MA): No Verbal consent obtained for Telemed visit?: No Flight Control Manager Required: No PCP or OBGYN visit in last 3 months: Yes Hx Now: No Do You Feel Safe at Home: Yes Authorities Contacted: N/A Questionairres Past Medical History Past Medical History Have you ever been diagnosed with any of the following: Neurological Problems Seizures: No Cardiology Problems Congestive Heart Failure: No Hypertension: Yes Respiratory Problems Chronic Obstructive Pulmonary Disease (COPD): No Smoking: No Smoking Exposure: No Stomache/Intestinal Problems Hepatitis: No Diverticulitis: Yes Diverticulosis: Yes Genital/Urinary Problems Renal Disease: Yes Benign Prostatic Hyperplasia: Yes Reproductive Problems Fibroids: No Musculoskeletal Problems Arthritis: Yes Head,Eye,Nose,Throat Problems Cataracts: Yes (had surgery) Deafness: Yes ([facility]) Endocrine Problems Diabetes Mellitus Type 1: No Diabetes Mellitus Type 2: No Other Problems Hospitalization: Yes (2017) Down Syndrome: No Developmental Delay: No Shingles: No Falls: No Blood Transfusions: No Blood Transfusion Reaction: No Anesthesia Reactions: No Organ Transplant: No Chemotherapy: No Radiation Therapy: No Hyperbaric Therapy: No MRSA: No VRSA: No Vancomycin-Resistant Enterococci: No Human Immunodeficiency Virus (HIV): No Chicken Pox: Yes Measles: No Mumps: No Rubella ([place] Measles): No Pertussis: No Clostridium Difficile: No Cancer: No Subjective Visit Visit for: follow up visit, post op #1 and knee Immunization / Flu Flu Vaccine in the Last 12 Months: Yes Flu Vaccine Exclusion Criteria: Already Received History of Present Illness Chief complaint: F/U SEPTIC JOINT OF LEFT KNEE Srini is a pleasant 84-year-old female with a 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 He had a procedure done approximately 2-week and 1/2 weeks ago now. He reports he is doing well. He continues to take his antibiotics Personal History Occupation: RETIRED Red flag PMH: BMI and none Pain Pain level (0-10): 4 Pain duration: COMES AND GOES Pain location: inside (medial), outside (lateral), anterior and posterior Pain quality: sharp, dull and aching Pain timing: increases with activity Ambulatory data Ambulatory device: none Treatments Improvement with previous injections: No Improvement with PT: No Improvement with NSAIDS: no Review of Systems Review of Systems: All systems negative unless otherwise noted in HPI.
== END 2024-06-09 09:15 | disposition home or self-care (01) ==
LOC: HODSRG 08:25
PROVIDERS: PCP Internal Medicine; Referring Provider Internal Medicine; Supervising Provider Orthopaedic Surgery Adult Reconstructive Orthopaedic Surgery; Visit Provider Orthopaedic Surgery Adult Reconstructive Orthopaedic Surgery
DX: T84.54XD Infection and inflammatory reaction due to internal left knee prosthesis, subsequent encounter (principal); M00.862 Arthritis due to other bacteria, left knee; B96.20 Unspecified Escherichia coli [E. coli] as the cause of diseases classified elsewhere; Y79.2 Prosthetic and other implants, materials and accessory orthopedic devices associated with adverse incidents; I10 Essential (primary) hypertension
CPT/HCPCS: 99213; G0463

== ENCOUNTER 2024-06-30 09:21 | Outpatient (AMB) | payer MEDICARE, BC, SELFPAY ==
--- NOTE | 2024-06-30 09:42 | ORTHONT_ITS ---
Vital signs 06/30/24 09:43 Height 1.83 m Height Method Stated Weight 92.079 kg Weight Measurement Method Standing Scale BMI 27.5 BP 206/65 H Blood Pressure Source Automatic Cuff Blood Pressure Location Left Upper Arm Position Sitting Respiration 18 Pulse 57 L Pulse Source Monitor Temp 97.0 F Temp Source Temporal Artery Scan Pulse Oximetry (%) 96 Oxygen Delivery Method Room Air Med/Allergies Allergies & Medications Allergies No Known Allergies Allergy (Verified 06/30/24 09:44) Medication Reconciliation tamsulosin 0.4 mg capsule 0.4 mg PO DAILY 08/11/17 [History Confirmed 06/30/24] apixaban 2.5 mg tablet (Eliquis) 2.5 mg PO BID #30 tabs 04/09/24 [Rx Confirmed 06/30/24] losartan 50 mg tablet 50 mg PO QDAY #30 tabs 04/09/24 [Rx Confirmed 06/30/24] nitroglycerin 0.4 mg sublingual tablet 0.4 mg sublingual Q5M PRN chest pain 05/08/24 [History Confirmed 06/30/24] calcium carb-ergocalciferol (vit D2) 600 mg calcium-200 unit tablet 1 tab PO BID 05/21/24 [History Confirmed 06/30/24] [id number]-bek C-Mn 500 mg-400 mg capsule 1 cap PO TID 05/21/24 [History Confirmed 06/30/24] acetaminophen 500 mg tablet (Acetaminophen Extra Strength) 1,000 mg (2 x 500 mg) PO Q6H PRN pain #90 tabs 05/25/24 [Rx Confirmed 06/30/24] gabapentin 300 mg capsule 300 mg PO .qhs #30 caps 05/25/24 [Rx Confirmed 06/30/24] oxycodone 5 mg tablet 5 mg PO Q6H PRN pain #28 tabs 05/25/24 [Rx Confirmed 06/30/24] sennosides 8.6 mg-docusate sodium 50 mg tablet (Senna-S) 1 tab-cap PO QDAY #30 tabs 05/25/24 [Rx Confirmed 06/30/24] cephalexin 500 mg capsule 500 mg PO Q12H #60 caps 06/30/24 [Rx] Exam Exam Patient is in no acute distress and is cooperative with the examination today. Patient has a normal mood and affect. Breathing is nonlabored. In no respiratory distress. Bilateral extremities were evaluated and demonstrates sensation intact to light touch. Palpable pedal pulses are present. No significant edema is present. Right knee incisions clean dry intact. Range of motion 0 to 110 degrees. The knee feels stable varus valgus stress as well as AP translation Left knee incision is clean dry and intact that is midline. She has a fresh lateral incision.There is some swelling of the knee. Range of motion is 0 to 100 degrees. X-rays demonstrate a cemented total knee replacement in good alignment position Assessment and Plan Problem List (1) Septic joint of left knee joint: Status: Acute Plan: Patient is an 84-year-old male with left knee pain and left knee periprosthetic joint infection. It demonstrated cultures with E. coli. He underwent a irrigation debridement with poly exchange. He should see infectious disease outpatient. He reports that he is doing well. His incision looks fantastic despite the recent incision adjacent to it. He should be on oral suppression and we have refilled his Keflex Advanced Care Planning Discussion Advance care planning discussed with:: patient Office Procedures GNS Level of Care Nursing/Assessment Patient Status: Established Patient Nursing Assessment/Reassesment: Medication Reconciliation, Update PMH in EMR and Vital Signs Coordination of Care: Complex Care and Chronic Disease 1-5, Education Complex Pt/Fam, Consent,records obtained, informed consent, Results/Orders obtained and Staff clarify orders Established Patient Charge Established Patient Point Assignment: 95 Established Patient Point Charge: EP Level 3 (80-115) MT Intake Visit Data Collection New Patient or Established: Established Patient (seen at [facility] within 3 years) Reason for Visit:: FOLLOW UP Insurance Coder Required: No PCP or OBGYN visit in last 3 months: Yes Hx Now: No Do You Feel Safe at Home: Yes Authorities Contacted: N/A Questionairres Past Medical History Past Medical History Have you ever been diagnosed with any of the following: Neurological Problems Seizures: No Cardiology Problems Congestive Heart Failure: No Hypertension: Yes Respiratory Problems Chronic Obstructive Pulmonary Disease (COPD): No Smoking: No Smoking Exposure: No Stomache/Intestinal Problems Hepatitis: No Diverticulitis: Yes Diverticulosis: Yes Genital/Urinary Problems Renal Disease: Yes Benign Prostatic Hyperplasia: Yes Reproductive Problems Fibroids: No Musculoskeletal Problems Arthritis: Yes Head,Eye,Nose,Throat Problems Cataracts: Yes (had surgery) Deafness: Yes ([place]) Endocrine Problems Diabetes Mellitus Type 1: No Diabetes Mellitus Type 2: No Other Problems Hospitalization: Yes (2017) Down Syndrome: No Developmental Delay: No Shingles: No Falls: No Blood Transfusions: No Blood Transfusion Reaction: No Anesthesia Reactions: No Organ Transplant: No Chemotherapy: No Radiation Therapy: No Hyperbaric Therapy: No MRSA: No VRSA: No Vancomycin-Resistant Enterococci: No Human Immunodeficiency Virus (HIV): No Chicken Pox: Yes Measles: No Mumps: No Rubella (Kinyarwanda Measles): No Pertussis: No Clostridium Difficile: No Cancer: No Subjective Visit Visit for: follow up visit Immunization / Flu Flu Vaccine in the Last 12 Months: No Flu Vaccine Exclusion Criteria: No Exclusion Criteria History of Present Illness Chief complaint: F/U SEPTIC JOINT OF LEFT KNEE Srini is a pleasant 84-year-old female with a 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 He had a procedure done approximately 6 weeks ago now. He reports he is doing well. He continues to take his antibiotics Personal History Occupation: RETIRED Red flag PMH: BMI and none Pain Pain level (0-10): 1 Pain duration: COMES AND GOES Pain location: inside (medial), outside (lateral), anterior and posterior Pain quality: sharp, dull and aching Pain timing: increases with activity Associated signs & symptoms: none Ambulatory data Ambulatory device: none Treatments Improvement with previous injections: No Improvement with PT: No Improvement with NSAIDS: no Review of Systems Review of Systems: All systems negative unless otherwise noted in HPI.
[2024-06-30 09:43] VITALS: BP 206/65; PULSE 57; RESP 18; TEMP 36.1; O2SAT 96; BMI 27.5
== END 2024-06-30 10:04 | disposition home or self-care (01) ==
LOC: HODSRG 09:21
PROVIDERS: PCP Internal Medicine; Referring Provider Internal Medicine; Supervising Provider Orthopaedic Surgery Adult Reconstructive Orthopaedic Surgery; Visit Provider Orthopaedic Surgery Adult Reconstructive Orthopaedic Surgery
DX: M00.862 Arthritis due to other bacteria, left knee (principal); B96.20 Unspecified Escherichia coli [E. coli] as the cause of diseases classified elsewhere; I10 Essential (primary) hypertension
CPT/HCPCS: 99213; G0463

== ENCOUNTER 2024-07-21 10:56 | Outpatient (AMB) | payer MEDICARE, BC, SELFPAY ==
[2024-07-21 11:05] VITALS: BP 145/95; PULSE 61; RESP 18; TEMP 36.6; O2SAT 98; BMI 28.0
--- NOTE | 2024-07-21 11:05 | PD.ORTHCLVIS ---
Vital signs 07/21/24 11:05 Height 1.83 m Height Method Stated Weight 94.064 kg Weight Measurement Method Standing Scale BMI 28.0 BP 145/95 H Blood Pressure Source Automatic Cuff Blood Pressure Location Right Upper Arm Position Sitting Respiration 18 Pulse 61 Pulse Source Monitor Temp 97.8 F Temp Source Temporal Artery Scan Pulse Oximetry (%) 98 Oxygen Delivery Method Room Air Med/Allergies Allergies & Medications Allergies No Known Allergies Allergy (Verified 07/21/24 11:07) Medication Reconciliation tamsulosin 0.4 mg capsule 0.4 mg PO DAILY 08/11/17 [History Confirmed 07/21/24] apixaban 2.5 mg tablet (Eliquis) 2.5 mg PO BID #30 tabs 04/09/24 [Rx Confirmed 07/21/24] losartan 50 mg tablet 50 mg PO QDAY #30 tabs 04/09/24 [Rx Confirmed 07/21/24] nitroglycerin 0.4 mg sublingual tablet 0.4 mg sublingual Q5M PRN chest pain 05/08/24 [History Confirmed 07/21/24] calcium carb-ergocalciferol (vit D2) 600 mg calcium-200 unit tablet 1 tab PO BID 05/21/24 [History Confirmed 07/21/24] [id number]-fkqrraije-qve C-Mn 500 mg-400 mg capsule 1 cap PO TID 05/21/24 [History Confirmed 07/21/24] acetaminophen 500 mg tablet (Acetaminophen Extra Strength) 1,000 mg (2 x 500 mg) PO Q6H PRN pain #90 tabs 05/25/24 [Rx Confirmed 07/21/24] gabapentin 300 mg capsule 300 mg PO .qhs #30 caps 05/25/24 [Rx Confirmed 07/21/24] oxycodone 5 mg tablet 5 mg PO Q6H PRN pain #28 tabs 05/25/24 [Rx Confirmed 07/21/24] sennosides 8.6 mg-docusate sodium 50 mg tablet (Senna-S) 1 tab-cap PO QDAY #30 tabs 05/25/24 [Rx Confirmed 07/21/24] cephalexin 500 mg capsule 500 mg PO Q12H #60 caps 06/30/24 [Rx Confirmed 07/21/24] Exam Exam Patient is in no acute distress and is cooperative with the examination today. Patient has a normal mood and affect. Breathing is nonlabored. In no respiratory distress. Bilateral extremities were evaluated and demonstrates sensation intact to light touch. Palpable pedal pulses are present. No significant edema is present. Right knee incisions clean dry intact. Range of motion 0 to 110 degrees. The knee feels stable varus valgus stress as well as AP translation Left knee incision is clean dry and intact that is midline. She has a fresh lateral incision.There is some swelling of the knee. Range of motion is 0 to 100 degrees. X-rays demonstrate a cemented total knee replacement in good alignment position Assessment and Plan Problem List (1) Septic joint of left knee joint: Status: Acute Plan: Patient is an 84-year-old male with left knee pain and left knee periprosthetic joint infection. It demonstrated cultures with E. coli. He underwent a irrigation debridement with poly exchange. He is doing well. He can continue his Keflex He has been having right shoulder pain and has limited shoulder abduction. We will get shoulder x-rays as well Advanced Care Planning Discussion Advance care planning discussed with:: patient Office Procedures GNS Level of Care Nursing/Assessment Patient Status: Established Patient Nursing Assessment/Reassesment: Medication Reconciliation, Update PMH in EMR and Vital Signs Coordination of Care: Complex Care and Chronic Disease 1-5, Education Complex Pt/Fam, Consent,records obtained, informed consent, Results/Orders obtained and Staff clarify orders Established Patient Charge Established Patient Point Assignment: 95 Established Patient Point Charge: EP Level 3 (80-115) MA Intake Visit Data Collection New Patient or Established: Established Patient (seen at [facility] within 3 years) Reason for Visit:: KNEE CONCERNS Seen by Clinical Staff ONLY (RN/MA): No Verbal consent obtained for Telemed visit?: No Associate Professor Of Medicine Required: No PCP or OBGYN visit in last 3 months: Yes Hx Now: No Do You Feel Safe at Home: Yes Authorities Contacted: N/A Questionairres Past Medical History Past Medical History Have you ever been diagnosed with any of the following: Neurological Problems Seizures: No Cardiology Problems Congestive Heart Failure: No Hypertension: Yes Respiratory Problems Chronic Obstructive Pulmonary Disease (COPD): No Smoking: No Smoking Exposure: No Stomache/Intestinal Problems Hepatitis: No Diverticulitis: Yes Diverticulosis: Yes Genital/Urinary Problems Renal Disease: Yes Benign Prostatic Hyperplasia: Yes Reproductive Problems Fibroids: No Musculoskeletal Problems Arthritis: Yes Head,Eye,Nose,Throat Problems Cataracts: Yes (had surgery) Deafness: Yes ([facility]) Endocrine Problems Diabetes Mellitus Type 1: No Diabetes Mellitus Type 2: No Other Problems Hospitalization: Yes (2017) Down Syndrome: No Developmental Delay: No Shingles: No Falls: No Blood Transfusions: No Blood Transfusion Reaction: No Anesthesia Reactions: No Organ Transplant: No Chemotherapy: No Radiation Therapy: No Hyperbaric Therapy: No MRSA: No VRSA: No Vancomycin-Resistant Enterococci: No Human Immunodeficiency Virus (HIV): No Chicken Pox: Yes Measles: No Mumps: No Rubella (Urdu Measles): No Pertussis: No Clostridium Difficile: No Cancer: No Subjective Visit Visit for: follow up visit and knee Immunization / Flu Flu Vaccine in the Last 12 Months: No Flu Vaccine Exclusion Criteria: No Exclusion Criteria History of Present Illness Chief complaint: KNEE CONCERNS Srini is a pleasant 84-year-old female with a 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 He had a procedure done approximately 8 weeks ago now. He reports he is doing well. He has stopped his antibiotics. He is doing well Personal History Occupation: RETIRED Red flag PMH: BMI BMI Counceling provided: Yes Pain Pain level (0-10): 0 Pain duration: COMES AND GOES Pain location: inside (medial), outside (lateral), anterior and posterior Pain quality: sharp, dull and aching Pain timing: increases with activity Associated signs & symptoms: none Ambulatory data Ambulatory device: none Treatments Improvement with previous injections: No Improvement with PT: No Improvement with NSAIDS: no Review of Systems Review of Systems: All systems negative unless otherwise noted in HPI.
--- NOTE | 2024-07-21 11:26 | XR_ITS ---
Examination: Shoulder,right, 3 views Technique: Shoulder AP internal rotation, AP external rotation, Y view shoulder, 3 views Exam date and time :July 21, 2024 1131 hours INDICATIONS: Right shoulder pain several years. FINDINGS: Prominent osteopenia. Advanced osteoarthritis glenohumeral joint No fracture or dislocation IMPRESSION: Advanced osteoarthritis glenohumeral joint
== END 2024-07-21 11:26 | disposition home or self-care (01) ==
LOC: HODSRG 10:56
PROVIDERS: PCP Internal Medicine; Referring Provider Internal Medicine; Supervising Provider Orthopaedic Surgery Adult Reconstructive Orthopaedic Surgery; Visit Provider Orthopaedic Surgery Adult Reconstructive Orthopaedic Surgery
DX: T84.54XA Infection and inflammatory reaction due to internal left knee prosthesis, initial encounter (principal); M00.862 Arthritis due to other bacteria, left knee; B96.20 Unspecified Escherichia coli [E. coli] as the cause of diseases classified elsewhere; M25.511 Pain in right shoulder; I10 Essential (primary) hypertension
CPT/HCPCS: 73030; 99213; G0463

== ENCOUNTER 2024-08-13 14:26 | Outpatient (AMB) | payer MEDICARE, BC, SELFPAY ==
--- NOTE | 2024-08-13 15:12 | PD.ORTHCLVIS ---
Vital signs 08/13/24 15:13 Height 1.83 m Height Method Stated Weight 91.399 kg Weight Measurement Method Standing Scale BMI 27.3 BP 230/89 H Blood Pressure Source Automatic Cuff Blood Pressure Location Left Upper Arm Position Sitting Respiration 18 Pulse 56 L Pulse Source Monitor Temp 97.8 F Temp Source Temporal Artery Scan Pulse Oximetry (%) 94 L Oxygen Delivery Method Room Air Med/Allergies Allergies & Medications Allergies No Known Allergies Allergy (Verified 08/13/24 15:14) Medication Reconciliation tamsulosin 0.4 mg capsule 0.4 mg PO DAILY 08/11/17 [History Confirmed 08/13/24] apixaban 2.5 mg tablet (Eliquis) 2.5 mg PO BID #30 tabs 04/09/24 [Rx Confirmed 08/13/24] losartan 50 mg tablet 50 mg PO QDAY #30 tabs 04/09/24 [Rx Confirmed 08/13/24] nitroglycerin 0.4 mg sublingual tablet 0.4 mg sublingual Q5M PRN chest pain 05/08/24 [History Confirmed 08/13/24] calcium carb-ergocalciferol (vit D2) 600 mg calcium-200 unit tablet 1 tab PO BID 05/21/24 [History Confirmed 08/13/24] [id number]-ehbykycoa-xxe C-Mn 500 mg-400 mg capsule 1 cap PO TID 05/21/24 [History Confirmed 08/13/24] acetaminophen 500 mg tablet (Acetaminophen Extra Strength) 1,000 mg (2 x 500 mg) PO Q6H PRN pain #90 tabs 05/25/24 [Rx Confirmed 08/13/24] gabapentin 300 mg capsule 300 mg PO .qhs #30 caps 05/25/24 [Rx Confirmed 08/13/24] oxycodone 5 mg tablet 5 mg PO Q6H PRN pain #28 tabs 05/25/24 [Rx Confirmed 08/13/24] sennosides 8.6 mg-docusate sodium 50 mg tablet (Senna-S) 1 tab-cap PO QDAY #30 tabs 05/25/24 [Rx Confirmed 08/13/24] cephalexin 500 mg capsule 500 mg PO Q12H #60 caps 06/30/24 [Rx Confirmed 08/13/24] Exam Exam Patient is in no acute distress and is cooperative with the examination today. Patient has a normal mood and affect. Breathing is nonlabored. In no respiratory distress. Bilateral extremities were evaluated and demonstrates sensation intact to light touch. Palpable pedal pulses are present. No significant edema is present. Right knee incisions clean dry intact. Range of motion 0 to 110 degrees. The knee feels stable varus valgus stress as well as AP translation Left knee incision is clean dry and intact that is midline. She has a fresh lateral incision.There is some swelling of the knee. Range of motion is 0 to 100 degrees. Right shoulder has pain with internal rotation. Range of motion is limited and is pain limited. He has difficulty with overhead activity. Charanjit and Neer's is negative. He has good strength with abduction X-rays demonstrate a cemented total knee replacement in good alignment position Right shoulder x-rays demonstrate significant glenohumeral arthritis Assessment and Plan Problem List (1) Septic joint of left knee joint: Status: Acute Plan: Patient is an 84-year-old male with left knee pain and left knee periprosthetic joint infection. It demonstrated cultures with E. coli. He underwent a irrigation debridement with poly exchange. He is doing well. He is off antibiotics at this time and has no symptoms. He is very happy. (2) Glenohumeral arthritis: Status: Acute Plan: Patient is an 84-year-old male with glenohumeral arthritis of the right shoulder. We discussed nonoperative operative options. He would like to try a cortisone injection of his right shoulder. He tried 1 in the past but it has been a long time. Recommend Shoulder cortisone injection as patient would like to proceed with conservative treatment at this time. The risks and benefits of the procedure were reviewed with the patient and patient gave verbal consent to continue with the procedure. Procedure: performed by Dr. Zarate Using sterile technique the Right Shoulder was thoroughly prepped with alcohol. An intra-articular injection of the shoulder was performed posteriorly and the patient tolerated this well. This contained Kenalog and lidocaine. There was 1Cc and 4 cc respectively, transferred Advanced Care Planning Discussion Advance care planning discussed with:: patient Office Procedures GNS Level of Care Nursing/Assessment Patient Status: Established Patient Nursing Assessment/Reassesment: Medication Reconciliation, Update PMH in EMR and Vital Signs Coordination of Care: Complex Care and Chronic Disease 1-5, Education Complex Pt/Fam, Consent,records obtained, informed consent, Results/Orders obtained and Staff clarify orders Established Patient Charge Established Patient Point Assignment: 95 Established Patient Point Charge: EP Level 3 (80-115) Surgical Proc/IM SQ injection Major Surgical Procedure: Yes (SHOULDER INJECTION) Medication Given Medication Given Medication Given: Yes Documented Dose Given: 4 Route: Infiitration Medication Given Medication Given Medication Given: Yes Route: Infiitration Office Meds Xylocaine 10 mg/mL (1 %) injection solution Performing Provider: Merrill Zarate MD Performing Location: [facility] Administered by: Merrill Zarate MD on 08/13/24 15:49 Dose Route Admin Location Dispensed Lot Number Expiration Date [facility] [employer] 20 mL Infiltration 20 mL [id number] 12/09/27 25350-165-23 [facility] triamcinolone acetonide 40 mg/mL suspension for injection Performing Provider: Merrill Zarate MD Performing Location: [facility] Administered by: Merrill Zarate MD on 08/13/24 15:49 Dose Route Admin Location Dispensed Lot Number Expiration Date [facility] [employer] 40 mg intra-articular SHOULDER 1 mL [id number] 08/07/25 3042-0824-35 [employer] [place] Intake Visit Data Collection New Patient or Established: Established Patient (seen at [facility] within 3 years) Reason for Visit:: XRAY RESULTS Seen by Clinical Staff ONLY (RN/MA): No PCP or OBGYN visit in last 3 months: Yes Hx Now: No Do You Feel Safe at Home: Yes Authorities Contacted: N/A Questionairres Past Medical History Past Medical History Have you ever been diagnosed with any of the following: Neurological Problems Seizures: No Cardiology Problems Congestive Heart Failure: No Hypertension: Yes Respiratory Problems Chronic Obstructive Pulmonary Disease (COPD): No Smoking: No Smoking Exposure: No Stomache/Intestinal Problems Hepatitis: No Diverticulitis: Yes Diverticulosis: Yes Genital/Urinary Problems Renal Disease: Yes Benign Prostatic Hyperplasia: Yes Reproductive Problems Fibroids: No Musculoskeletal Problems Arthritis: Yes Head,Eye,Nose,Throat Problems Cataracts: Yes (had surgery) Deafness: Yes ([facility]) Endocrine Problems Diabetes Mellitus Type 1: No Diabetes Mellitus Type 2: No Other Problems Hospitalization: Yes (2016) Down Syndrome: No Developmental Delay: No Shingles: No Falls: No Blood Transfusions: No Blood Transfusion Reaction: No Anesthesia Reactions: No Organ Transplant: No Chemotherapy: No Radiation Therapy: No Hyperbaric Therapy: No MRSA: No VRSA: No Vancomycin-Resistant Enterococci: No Human Immunodeficiency Virus (HIV): No Chicken Pox: Yes Measles: No Mumps: No Rubella (Irish Measles): No Pertussis: No Clostridium Difficile: No Cancer: No Subjective Visit Visit for: follow up visit, knee, shoulder and x-rays Immunization / Flu Flu Vaccine in the Last 12 Months: No Flu Vaccine Exclusion Criteria: No Exclusion Criteria History of Present Illness Chief complaint: KNEE CONCERNS Srini is a pleasant 84-year-old female with a 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 He had a procedure done approximately 12 weeks ago now. He reports he is doing well. He has stopped his antibiotics. He is doing well He is here for his right shoulder. He has advanced glenohumeral arthritis according the x-ray. He would like a shoulder injection today. He is not interested in surgery at this time which is reasonable Personal History Occupation: RETIRED Red flag PMH: BMI BMI Counceling provided: Yes Pain Pain level (0-10): 0 Pain duration: COMES AND GOES Pain location: inside (medial), outside (lateral), anterior and posterior Pain quality: sharp, dull and aching Pain timing: increases with activity Associated signs & symptoms: none Ambulatory data Ambulatory device: none Treatments Improvement with previous injections: No Improvement with PT: No Improvement with NSAIDS: no Review of Systems Review of Systems: All systems negative unless otherwise noted in HPI.
[2024-08-13 15:13] VITALS: BP 230/89; PULSE 56; RESP 18; TEMP 36.6; O2SAT 94; BMI 27.3
== END 2024-08-13 15:49 | disposition home or self-care (01) ==
LOC: HODSRG 14:26
PROVIDERS: PCP Internal Medicine; Referring Provider Internal Medicine; Supervising Provider Orthopaedic Surgery Adult Reconstructive Orthopaedic Surgery; Visit Provider Orthopaedic Surgery Adult Reconstructive Orthopaedic Surgery
DX: T84.84XD Pain due to internal orthopedic prosthetic devices, implants and grafts, subsequent encounter (principal); M19.011 Primary osteoarthritis, right shoulder; I10 Essential (primary) hypertension
CPT/HCPCS: 20610; 99213; J3301; J3490; G0463

== ENCOUNTER → 2024-08-26 | Outpatient (CLI) | payer MEDICARE, BC, SELFPAY ==
[2024-08-26 14:27] LABS: Basophils # (Auto) 0.1 Thou/mm3 (0.0-0.2); Basophils % (Auto) 1 % (0-2.5); Eosinophils # (Auto) 0.2 Thou/mm3 (0.0-0.5); Eosinophils % (Auto) 3 % (0-10); Hematocrit 35.9 % (41.0-53.0); Hemoglobin 11.8 g/dL (13.5-16.0); Immature Granulocytes % (Auto) 0 % (0-0); Immature Granulocytes Auto 0.02 Thou/mm3 (0.00-0.00); Lymphocytes # (Auto) 1.6 Thou/mm3 (1.0-4.8); Lymphocytes % (Auto) 20 % (10-50); Mean Corpuscular HGB Conc 32.9 g/dl (31.0-37.0); Mean Corpuscular Hemoglobin 29.2 pg (25.0-35.0); Mean Corpuscular Volume 89 fL (80-100); Monocytes # (Auto) 0.8 Thou/mm3 (0.0-0.8); Monocytes % (Auto) 9 % (0-12); Neutrophils # (Auto) 5.4 Thou/mm3 (1.8-7.7); Neutrophils % (Auto) 67 % (37-80); Nucleated Red Blood Cell % 0 /100 WBC (0); Platelet Count 254 Thou/mm3 (140-440); RDW Standard Deviation 43.1 fL (35.1-43.9); Red Blood Count 4.04 Miln/mm3 (4.50-5.90); White Blood Count 8.1 Thou/mm3 (3.8-10.6)
[2024-08-26 14:38] LABS: Iron 37 mcg/dL (65-175); Percent Iron Saturation 13 % (20-55); Total Iron Binding Capacity 265 mcg/dL (250-425); Unsaturated Iron Binding 228 (225-295)
[2024-08-26 14:39] LABS: Albumin, Serum 3.8 gm/dL (3.4-4.8); Anion Gap 8 (7-16); BUN/Creatinine Ratio 21 Ratio (12-20); Blood Urea Nitrogen 52 mg/dL (9-23); Calcium 8.8 mg/dL (8.3-10.6); Carbon Dioxide 23.7 mMol/L (20.0-31.0); Chloride 108 mMol/L (98-107); Creatinine (Component) 2.5 mg/dL (0.6-1.3); Glucose 129 mg/dL (74-106); Osmolality,Calculated 295 (275-295); Phosphorous 3.2 mg/dL (2.4-5.1); Potassium 4.5 mMol/L (3.4-5.1); Sodium 140 mMol/L (136-145); eGFR 24 See Note
== END | disposition home or self-care (01) ==
LOC: COPL 13:38
PROVIDERS: PCP Internal Medicine; Referring Provider Internal Medicine; Visit Provider Internal Medicine
DX: H81.10 Benign paroxysmal vertigo, unspecified ear (principal); N18.4 Chronic kidney disease, stage 4 (severe); Q61.9 Cystic kidney disease, unspecified; I12.9 Hypertensive chronic kidney disease with stage 1 through stage 4 chronic kidney disease, or unspecified chronic kidney disease
CPT/HCPCS: 36415; 80069; 83540; 83550; 85025

== ENCOUNTER → 2024-11-26 | Outpatient (CLI) | payer MEDICARE, BC, SELFPAY ==
[2024-11-26 14:57] LABS: Basophils # (Auto) 0.1 Thou/mm3 (0.0-0.2); Basophils % (Auto) 1 % (0-2.5); Eosinophils # (Auto) 0.2 Thou/mm3 (0.0-0.5); Eosinophils % (Auto) 3 % (0-10); Hematocrit 35.4 % (41.0-53.0); Hemoglobin 11.7 g/dL (13.5-16.0); Immature Granulocytes Auto 0.02 Thou/mm3 (0.00-0.00); Lymphocytes # (Auto) 1.8 Thou/mm3 (1.0-4.8); Lymphocytes % (Auto) 25 % (10-50); Mean Corpuscular HGB Conc 33.1 g/dl (31.0-37.0); Mean Corpuscular Hemoglobin 30.6 pg (25.0-35.0); Mean Corpuscular Volume 93 fL (80-100); Monocytes # (Auto) 0.6 Thou/mm3 (0.0-0.8); Monocytes % (Auto) 9 % (0-12); Neutrophils # (Auto) 4.5 Thou/mm3 (1.8-7.7); Neutrophils % (Auto) 63 % (37-80); Nucleated Red Blood Cell # 0.00 Thou/mm3 (0.00-0.00); Nucleated Red Blood Cell % 0 /100 WBC (0); Platelet Count 265 Thou/mm3 (140-440); RDW Standard Deviation 47.4 fL (35.1-43.9); Red Blood Count 3.82 Miln/mm3 (4.50-5.90); White Blood Count 7.2 Thou/mm3 (3.8-10.6)
[2024-11-26 15:13] LABS: Albumin, Serum 3.9 gm/dL (3.4-4.8); Anion Gap 12 (7-16); BUN/Creatinine Ratio 15 Ratio (12-20); Blood Urea Nitrogen 42 mg/dL (9-23); Calcium 9.3 mg/dL (8.3-10.6); Calcium (Corrected) 9.4 mg/dL (8.5-10.1); Carbon Dioxide 22.5 mMol/L (20.0-31.0); Chloride 107 mMol/L (98-107); Creatinine (Component) 2.8 mg/dL (0.6-1.3); Glucose 203 mg/dL (74-106); Osmolality,Calculated 297 (275-295); Phosphorous 3.5 mg/dL (2.4-5.1); Potassium 4.5 mMol/L (3.4-5.1); Sodium 141 mMol/L (136-145); eGFR 21 See Note
== END | disposition home or self-care (01) ==
LOC: COPL 14:26
PROVIDERS: PCP Internal Medicine; Referring Provider Internal Medicine; Visit Provider Internal Medicine
DX: I12.9 Hypertensive chronic kidney disease with stage 1 through stage 4 chronic kidney disease, or unspecified chronic kidney disease (principal); N18.4 Chronic kidney disease, stage 4 (severe); H81.10 Benign paroxysmal vertigo, unspecified ear; Q61.9 Cystic kidney disease, unspecified
CPT/HCPCS: 36415; 80069; 85025

== ENCOUNTER → 2025-01-20 | Outpatient (CLI) | payer MEDICARE, BC, SELFPAY ==
[2025-01-20 15:31] LABS: Basophils # (Auto) 0.1 Thou/mm3 (0.0-0.2); Basophils % (Auto) 1 % (0-2.5); Eosinophils # (Auto) 0.3 Thou/mm3 (0.0-0.5); Eosinophils % (Auto) 4 % (0-10); Hematocrit 34.2 % (41.0-53.0); Hemoglobin 11.5 g/dL (13.5-16.0); Immature Granulocytes Auto 0.02 Thou/mm3 (0.00-0.00); Lymphocytes # (Auto) 2.0 Thou/mm3 (1.0-4.8); Lymphocytes % (Auto) 26 % (10-50); Mean Corpuscular HGB Conc 33.6 g/dl (31.0-37.0); Mean Corpuscular Hemoglobin 31.0 pg (25.0-35.0); Mean Corpuscular Volume 92 fL (80-100); Monocytes # (Auto) 0.7 Thou/mm3 (0.0-0.8); Monocytes % (Auto) 10 % (0-12); Neutrophils # (Auto) 4.5 Thou/mm3 (1.8-7.7); Neutrophils % (Auto) 60 % (37-80); Nucleated Red Blood Cell # 0.00 Thou/mm3 (0.00-0.00); Nucleated Red Blood Cell % 0 /100 WBC (0); Platelet Count 271 Thou/mm3 (140-440); RDW Standard Deviation 45.1 fL (35.1-43.9); Red Blood Count 3.71 Miln/mm3 (4.50-5.90); White Blood Count 7.5 Thou/mm3 (3.8-10.6)
[2025-01-20 15:37] LABS: Albumin, Serum 4.0 gm/dL (3.4-4.8); Anion Gap 8 (7-16); BUN/Creatinine Ratio 17 Ratio (12-20); Blood Urea Nitrogen 50 mg/dL (9-23); Calcium 9.6 mg/dL (8.3-10.6); Calcium (Corrected) 9.6 mg/dL (8.5-10.1); Carbon Dioxide 22.7 mMol/L (20.0-31.0); Chloride 107 mMol/L (98-107); Creatinine (Component) 3.0 mg/dL (0.6-1.3); Glucose 112 mg/dL (74-106); Osmolality,Calculated 289 (275-295); Phosphorous 4.1 mg/dL (2.4-5.1); Potassium 4.7 mMol/L (3.4-5.1); Sodium 138 mMol/L (136-145); eGFR 20 See Note
== END | disposition home or self-care (01) ==
LOC: COPL 14:04
PROVIDERS: PCP Internal Medicine; Referring Provider Internal Medicine; Visit Provider Internal Medicine
DX: I12.9 Hypertensive chronic kidney disease with stage 1 through stage 4 chronic kidney disease, or unspecified chronic kidney disease (principal); N18.4 Chronic kidney disease, stage 4 (severe); H81.10 Benign paroxysmal vertigo, unspecified ear; Q61.9 Cystic kidney disease, unspecified
CPT/HCPCS: 36415; 80069; 85025

== ENCOUNTER → 2025-02-18 | Outpatient (CLI) | payer MEDICARE, BC, SELFPAY ==
[2025-02-18 14:24] LABS: Albumin, Serum 4.3 gm/dL (3.4-4.8); Anion Gap 10 (7-16); BUN/Creatinine Ratio 16 Ratio (12-20); Blood Urea Nitrogen 45 mg/dL (9-23); Calcium 9.5 mg/dL (8.3-10.6); Calcium (Corrected) 9.5 mg/dL (8.5-10.1); Carbon Dioxide 25.9 mMol/L (20.0-31.0); Chloride 106 mMol/L (98-107); Creatinine (Component) 2.8 mg/dL (0.6-1.3); Glucose 120 mg/dL (74-106); Osmolality,Calculated 295 (275-295); Phosphorous 2.8 mg/dL (2.4-5.1); Potassium 4.6 mMol/L (3.4-5.1); Sodium 142 mMol/L (136-145); eGFR 21 See Note
== END | disposition home or self-care (01) ==
LOC: COPL 13:28
PROVIDERS: PCP Internal Medicine; Referring Provider Internal Medicine; Visit Provider Internal Medicine
DX: I12.9 Hypertensive chronic kidney disease with stage 1 through stage 4 chronic kidney disease, or unspecified chronic kidney disease (principal); N18.4 Chronic kidney disease, stage 4 (severe); H81.10 Benign paroxysmal vertigo, unspecified ear; Q61.9 Cystic kidney disease, unspecified
CPT/HCPCS: 36415; 80069